=== PATIENT | female | born 1985 | race Caucasian/White ===

== ENCOUNTER 2024-05-19 13:38 | Outpatient (OUT) | payer OTHER, SELFPAY | END 2024-05-19 13:39 | disposition home or self-care (01) | PROVIDERS: PCP Family Medicine; Visit Provider Urology | DX: Z01.818 Encounter for other preprocedural examination (principal); N28.1 Cyst of kidney, acquired ==

== ENCOUNTER 2024-05-22 10:30 | Day surgery (SDC) | payer OTHER, SELFPAY ==
[2024-05-19 14:08] VITALS: BP 123/85; PULSE 77; TEMP 36.6; O2SAT 98; BMI 40.4
[2024-05-22] VITALS (11 sets, daily range): BP systolic 98–132; BP diastolic 60–86; PULSE 67–88; TEMP 36.2; O2SAT 92–97; BMI 40.6
[2024-05-22 10:54] LABS: HCG Qualitative NEGATIVE (NEGATIVE); Internal Control Within Normal Limits
[2024-05-22] MEDS: LACTATED RINGER'S SOLUTION 1,000 ML 50 ML IV (10:55)
[2024-05-22] MEDS: CEFAZOLIN SODIUM 2 GM/50 ML D5W PREMIX IV (11:07)
--- NOTE | 2024-05-22 11:43 | PM.URSON ---
Urology Surgery Operative Note Operative Note Procedure Date: 05/22/24 Time Out Performed: yes Pre-op Diagnosis: Right flank pain and right distal ureteral calculus Post-op Diagnosis: other (Right flank pain and severe right distal ureteral stenosis) Procedures performed: 1. Cystoscopy. 2. Right rigid ureteral dilation to 10 [place]. 3. Right ureteroscopy. 4. Placement of 6 [place] variable length right ureteral stent Anesthesia: General-LMA Primary Surgeon: López Harvey Complications: None Estimated blood loss (mL): 5 Findings: 1. Severe right distal ureteral stenosis with induration. 2. Passed ureteral calculus Specimens: None Drains: 6 [place] variable length right ureteral stent Indications for Procedures: This lady had a small distal right ureteral calculus with ipsilateral hydroureteronephrosis causing her flank pain. She has been straining her urine but has not passed a stone. Her pain has persisted. She did get follow-up KUBs and IVP's which were negative. Due to her persistent pain she now presents for endoscopic evaluation with possible stone manipulation versus stricture dilation and stent placement. She has signed an informed consent after risks were explained. Detailed description of Procedure: The patient was brought to the operating room and placed on the operating room table in the supine position. SCDs were placed on the lower extremities and turned on and functioning during the entire case. Timeout was done by all parties in the room. We all agreed upon the patient's identification and the planned procedures for this patient. Genn. anesthesia was then administered. The patient was then repositioned into the modified dorsal lithotomy position. All pressure points were satisfactorily padded. Genitalia were sterilely prepped and draped in usual fashion. I started by passing a 22 [place] Olympus cystoscope per urethra and into the bladder. Panendoscopy in the bladder revealed no evidence of any tumors, stones or lesions. I then passed a Glidewire through the scope and up the right ureter. There was an immediate E flux of cloudy debris. I then used an 8 [place] rigid ureteral dilator. As I passed this into the distal ureter I encountered significant resistance. Fluoroscopically there was no evidence of a stone in the area. I slowly steadily advanced the dilator and this turned out to be a significant stricture. I then similarly passed the 10 [place] dilator. This was also somewhat difficult. The ureter in this area was indurated. After removing the scope I then passed a semirigid ureteroscope adjacent to the wire and into the right ureter. The strictured area was now opened up. It was indurated and friable in this area. I was able to advance up beyond the 2 cm segment of strictured indurated ureter and get to normal ureter. There was inflammatory debris coming down towards the scope as I advanced up to her UPJ. No stone was seen. The scope was then removed. The cystoscope was backloaded over the wire and passed into the bladder and then a 6 [place] variable length ureteral stent was passed over the wire up to the right kidney. The wire was removed and there were good curls in the kidney and in the bladder. The bladder was drained of its contents and the scope was then removed. [facility] and [facility] to PACU in stable condition.
== END 2024-05-22 12:45 | disposition home or self-care (01) ==
PROVIDERS: PCP Family Medicine; Visit Provider Urology
PROC: (CPT 910; principal; 2024-05-22 11:40)
DX: Q62.10 Congenital occlusion of ureter, unspecified (principal); R10.9 Unspecified abdominal pain; Z87.442 Personal history of urinary calculi; Z90.49 Acquired absence of other specified parts of digestive tract; E66.01 Morbid (severe) obesity due to excess calories; Z68.41 Body mass index [BMI] 40.0-44.9, adult
CPT/HCPCS: 52332; 52344; 36415; 76000; 84703; J0690; J1100; J2405; J2704; J3010

== ENCOUNTER 2024-05-25 17:03 | Emergency (ER) | payer OTHER, SELFPAY ==
[2024-05-25 17:08] VITALS: BP 154/103; PULSE 88; TEMP 36.4; O2SAT 98; BMI 40.7
--- OUTSIDE RECORDS SUMMARY | 2024-05-25 17:11 | XMS_ITS | CCD ---
Demographics Address [address] [place] [address] Preferred Language en Marital Status Single Sabianist Affiliation Unknown Race White Ethnic Group Not or Lati no Author Organization [facility] Care Team Providers Care Landscape Laborer Name Role Phone Juana Benson Unavailable Amanda Garza Unavailable Stevo Saini Unavailable DO Juana Benson Primary Care Provider [phone] MD Jorden Ramos Attending Provider [phone] Esthela BUTTON MACHINE OPERATORTracy Unavailable Unallocated, Noms Provider Primary Care Provider Unallocated , Perlas Provider Primary Care Provi abbey Aroldo Andino DO Unavailable Juana Benson DO Attending Provider [phone] JUANA BENSON Primary Care Physician Giovanna Rhoades Unavailable Unavailable Julius Maria Attending Unavailable Julius Maria Attending Unavailable Tracy Lay NP Unavailable Unallocated , Perlas Provider Primary Care Provi abbey Juana Benson DO Primary Care Provider [phone] Juana Benson DO Primary Care Provider Juana Benson DO Attending Provider Juana Benson DO Primary Care Provider [phone] Juana Benson DO Attending Provider OMAIRA SAUCEDO Attending Unavailable TRACY LAY Attending Unavailab AROLDO Tee Attending Unavailable TRACY LAY Attending Unavailab joo NOYOLA JR., PHILIP Dickerson Attending Unavaila SHEREE Robertson Attending Unavailable JR. JAZMÍN, PHILIP Dickerson Attending Unavaila AROLDO Vivar Attending Unavailable ASHLEY LOCKETT Attending Unavailable Mike LUGO, Shanta Banegas Attending Provider SHANTA MCKEON Attending Unavailable SHANTA MCKEON Admitting Unavailable SHANTA MCKEON Attending Unavailable SHANTA MCKEON Referring Unavailable Fabiano Orellana Attending Unavailable SHANTA MCKEON Attending Unavailable BRITTNEY MCKEON Attending Unavailab Fabiano Card Attending Unavailable López BEAN Attending Unavailable Kuns, Juana Admitting Unavailable Kuns, Juana Primary Care Unavailable Kuns, Juana Attending Unavailable Kuns, Juana Admitting Unavailable Kuns, Juana Primary Care Unavailable Kuns, Juana Attending Unavailable Kuns, Juana Primary Care Unavailable Kuns, Juana Attending Unavailable Kuns, Juana Admitting Unavailable Kuns, Juana Primary Care Unavailable Shanta Mckeon Admitting Unavailable MikeShanta monreal Attending Unavailable Kuns, Juana Admitting Unavailable Kuns, Juana Attending Unavailable Kuns, Juana Admitting Unavailable Kuns, Juana Primary Care Unavailable Kuns, Juana Attending Unavailable Medications Current Medications Medication Drug Class(es) Dates Sig (Normalized) Sig (Original) acetaminophen 325 mg / HYDROcodone bitartrate 5 mg oral tablet (1 source) Opioid Agonist Start: 06-21-2017 Stanley 325 mg-5 mg oral tablet 1 tab(s), Oral, q4hr PC for pain, 40 tab(s), Refill(s) 0, [facility] Start Date: 06/21/17 Status: Ordered Atogepant (7 sources) Start: 03-04-2024 take 1 tablet by mouth once daily Atogepant (Qulipta) 60 mg tablet Active 60 MG PO Daily March 04, 2024 1:00am Start: 03-04-2024 take 1 tablet by olivier th once daily Atogepant (Qulipta) 60 mg tablet Active 60 MG PO Daily March 04, 2024 12:00am Atogepant (Qulipta) 60 MG tablet (15 sources) Start: 05-31-2023 End: 05-30-2024 take 1 tablet by mouth once daily Atogepant (Qulipta) 60 MG tablet Indications: Intractable migraine without aura and with status migrainosus (CMS/HCC) Take 60 mg by mouth Daily 30 tablet 11 05/31/2023 05/30/2024 Active atogepant 60 MG Oral Tablet [Qulipta] (4 sources) Start: 01-22-2024 take 1 tablet by mouth once daily at bedtime Qulipta 60 mg oral tablet = 1 tab(s), Oral, Once a day (at bedtime), Refills(s) 0 Start Date: 01/22/24 Status: Ordered Repeat number: 1 Start: 01-22-2024 take 1 tablet by olivier th once daily at bedtime Qulipta 60 mg oral tablet = 1 tab(s), Oral, Once a day (at bedtime), Refills(s) 0 Start Date: 01/22/24 Status: Ordered azithromycin 250 mg oral tablet (2 sources) Macrolide Antimicrobial Start: 05-12-2022 Zithromax Z-Inocente 250 MG as directed Orally May, Active brompheniramine maleate 0.4 mg/ml / dextromethorphan hydrobromide 2 mg/ml / pseudoephedrine hydrochloride 6 mg/ml oral solution (2 sources) alpha-Adrenergic Agonist, Uncompetitive N-dwfxix-E-aspartate Receptor Antagonist, Sigma-1 Agonist Start: 12-27-2023 End: 01-03-2024 take 5-10 mL by mouth four times daily as needed for cough brompheniramine-p seudoephedrine-DM 30-2-10 MG/5ML syrup Indications: Viral upper respiratory infection Take 5-10 mL by mouth 4 (four) times a day as needed for congestion or cough for up to 7 days 118 mL 12/27/2023 01/03/2024 Active ciprofloxacin 500 mg oral tablet (14 sources) Quinolone Antimicrobial Start: 12-26-2023 End: 03-04-2024 ciprofloxacin (Cipro) 500 MG tablet Twice daily 12/26/2023 Active dicyclomine hydrochloride 10 mg oral capsule (12 sources) Anticholinergic Start: 11-06-2022 take 1 capsule by mouth every eight hours Dicyclomine HCl 10 MG 1 CAPSULE Orally Three times a day for 30 days Nov, Active Start: 08-23-2018 End: 11-04-2018 take 1 tablet by mouth twice daily as needed for pain Dicyclomine 20 mg tablet Discontinued 20 MG PO Twice daily as needed for Pain August 23, 2018 12:00am November 04, 2018 4:46pm esomeprazole 40 mg delayed release oral capsule (3 sources) Proton Pump Inhibitor Start: 08-12-2021 take 1 capsule by mouth every twenty-four hours Esomeprazole Magnesium 40 MG 1 capsule Orally Once a day for 30 day(s) Aug, Active ketorolac tromethamine 10 mg oral tablet (4 sources) Nonsteroidal Anti-inflammatory Drug, Cyclooxygenase Inhibitor Start: 02-05-2024 take 1 tablet by mouth four times daily ketorolac 10 mg Tab 10 mg = 1 tab(s), Oral, QID Start Date: 02/05/24 Status: Ordered Repeat number: 1 Start: 01-22-2024 End: 01-27-2024 take 1 tablet by mouth every six hours as needed ketorolac 10 mg Tab 10 mg = 1 tab(s), Oral, q6hr, PRN for pain, not to exceed 40 mg/day and 5 days duration for all dose forms, X 5 day(s), # 20 tab(s), Refills(s) 0, Pharmacy: [facility], 160, cm, 01/22/24 11:28:00 EST, Height/Length Dosing, 105.7, kg, 01/22/24 11:28:00 EST, Weight Dosing Start Date: 01/22/24 Stop Date: 01/27/24 Status: Ordered methylPREDNISolone 4 mg oral tablet (20 sources) Corticosteroid Start: 04-03-2024 Methylpredniso lone (Medrol (Inocente)) 4 mg tablets,dose pack Active 4 MG PO As Directed April 03, 2024 1:00am Start: 09-29-2022 End: 09-29-2022 Methylprednisolone 4 mg tabl ets,dose pack Discontinued MG September 29, 2022 12:00am September 29, 2022 8:26am Start: 09-29-2022 End: 09-29-2022 Methylprednisolone 4 mg tabl ets,dose pack Discontinued MG September 28, 2022 11:00pm September 29, 2022 7:26am Start: 09-29-2022 End: 09-29-2022 Methylprednisolone Discontin ued MG September 29, 2022 12:00am September 29, 2022 8:26am Start: 05-12-2022 Medrol 4 MG as directed Orally May, Active Start: 09-07-2021 Medrol 4 MG as directed Orally for 6 days Sep, Active Start: 02-01-2021 methylPREDNISo lone 4 MG as directed Orally Jan, Not-Taking naproxen 500 mg oral tablet (1 source) Nonsteroidal Anti-inflammatory Drug Start: 04-27-2024 End: 05-04-2024 take 1 tablet by mouth twice daily Naprosyn 500 mg Tab 500 mg = 1 tab(s), Oral, BID, X 7 day(s), # 14 tab(s), Refills(s) 0, Pharmacy: [facility], 162, cm, 04/27/24 11:29:00 EDT, Height/Length Dosing, 104.7, kg, 04/27/24 11:29:00 EDT, Weight Dosing Start Date: 04/27/24 Stop Date: 05/04/24 Status: Ordered Quantity: 14.0 Unit: tab(s) Repeat number: 1 OXcarbazepine 600 mg oral tablet (20 sources) Anti-epileptic Agent Start: 06-15-2017 End: 04-07-2024 take 1 tablet by mouth at bedtime OXcarbazepine (Trileptal) 600 MG tablet Indications: Intractable migraine without aura and with status migrainosus (CMS/HCC) , History of seizure disorder TAKE 1 TABLET BY MOUTH AT BEDTIME 90 tablet 3 04/07/2024 Active take 1 tablet by olivier th every twelve hours OXcarbazepine 600 MG 1 tablet Orally Twi ce a day Active oxyCODONE hydrochloride 5 mg oral capsule (1 source) Opioid Agonist Start: 04-27-2024 End: 04-30-2024 take 1 capsule by mouth every six hours as needed for pain oxyCODONE 5 mg Cap 5 mg = 1 cap(s), Oral, q6hr, PRN for pain, X 3 day(s), # 12 cap(s), Refills(s) 0, Pharmacy: [facility], 162, cm, 04/27/24 11:29:00 EDT, Height/Length Dosing, 104.7, kg, 04/27/24 11:29:00 EDT, Weight Dosing Start Date: 04/27/24 Stop Date: 04/30/24 Status: Ordered Quantity: 12.0 Unit: cap(s) Repeat number: 1 Indication: Calculus of kidney pramoxine hydrochloride 10 mg/ml rectal foam (1 source) Start: 01-14-2020 Proctofoam 1 % as directed Externally 1 application QID prn for rectal pain PRN Jan, Active sulfamethoxazole 800 mg / trimethoprim 160 mg oral tablet (1 source) Dihydrofolate Reductase Inhibitor Antibacterial, Sulfonamide Antimicrobial Start: 01-08-2024 End: 01-13-2024 take 1 tablet by mouth twice daily Bactrim D.S. 800 mg-160 mg Tab 1 tab(s), Oral, BID for 5 day(s), 10 tab(s), Refill(s) 0, [facility], 160, cm, 01/08/24 12:12:00 EST, Height/Length Dosing, 109, kg, 01/08/24 12:12:00 EST, Weight Dosing Start Date: 01/08/24 Stop Date: 01/13/24 Status: Ordered SUMAtriptan 100 mg oral tablet (20 sources) Serotonin-1b and Serotonin-1d Receptor Agonist Start: 03-19-2023 SUMAtriptan (Imitrex) 100 MG tablet Indications: Intractable migraine without aura and with status migrainosus (CMS/HCC) 1 tablet at least 2 hours between doses as needed max 2 per day and 2 per week Strength: 100 mg 9 tablet 3 03/19/2023 Active Start: 09-29-2022 take 1 tablet by olivier th once as needed Sumatriptan Succinate 100 mg tablet Active 100 MG PO Per protocol as needed for MIGRAINES September 29, 2022 12:00am take 1 tablet by olivier th every two hours as needed, then take 1 tablet by mouth twice daily as needed SUMAtriptan Succinate 100 MG 1 tablet at least 2 hours between doses as needed Orally Twice a day Active tamsulosin hydrochloride 0.4 mg oral capsule (4 sources) alpha-Adrenergic Brandie Start: 01-22-2024 take 1 capsule by mouth once daily Flomax 0.4 mg Cap 0.4 mg = 1 cap(s), Oral, Daily, # 30 cap(s), Refills(s) 0, Pharmacy: [facility], 160, cm, 01/22/24 11:28:00 EST, Height/Length Dosing, 105.7, kg, 01/22/24 11:28:00 EST, Weight Dosing Start Date: 01/22/24 Status: Ordered Quantity: 30.0 Unit: cap(s) Repeat number: 1 sprinkle 24 hr topiramate 200 mg extended release oral capsule (20 sources) Start: 03-04-2024 take 1 capsule by mouth once daily at bedtime Topiramate 200 mg capsule,sprinkle,E R 24hr Active 200 MG PO Daily at bedtime March 04, 2024 1:00am Start: 01-22-2024 take 1 tablet by olivier th once daily topiramate 200 mg oral capsule, extended release = 1 tab(s), Oral, Daily, Refills(s) 0 Start Date: 01/22/24 Status: Ordered Repeat number: 1 Start: 01-22-2024 take 1 tablet by olivier th once daily topiramate 200 mg oral capsule, extended release = 1 tab(s), Oral, Daily, Refills(s) 0 Start Date: 01/22/24 Status: Ordered Start: 06-18-2023 End: 06-17-2024 take 1 capsule by mouth every twenty-four hours at bedtime Topiramate ER (Trokendi XR) 200 MG capsule sustained-release 24 hr Indications: Intractable migraine without aura and with status migrainosus (CMS/HCC) , History of seizure disorder , Pseudotumor cerebri Take 1 capsule by mouth at bedtime 90 capsule 3 06/18/2023 06/17/2024 Active Start: 09-29-2022 End: 03-04-2024 take 1 capsule by mouth once daily at bedtime Topiramate (Trokendi Xr) 200 mg capsule,extended release 24hr Discontinued 200 MG PO Daily at bedtime September 29, 2022 12:00am March 04, 2024 3:18pm Start: 09-29-2022 End: 03-04-2024 take 1 capsule by mouth once daily at bedtime Topiramate (Trokendi Xr) 200 mg capsule,extended release 24hr Discontinued 200 MG PO Daily at bedtime September 28, 2022 11:00pm March 04, 2024 2:18pm Start: 09-29-2022 take 1 capsule by [facility] once daily at bedtime Topiramate (Trokendi Xr) 200 mg capsule,extended release 24hr Active 200 MG PO Daily at bedtime September 28, 2022 11:00pm Start: 09-29-2022 take 1 capsule by [facility] once daily at bedtime Topiramate (Trokendi Xr) 200 mg capsule,extended release 24hr Active 200 MG PO Daily at bedtime September 29, 2022 12:00am take 1 tablet by [facility] twice daily Topamax 100 MG tablet 1 tablet Orally two times daily for 30 days 0 Active take 1 capsule by [facility] every twenty-four hours at bedtime Topiramate ER (Trokendi XR) 50 MG capsule sustained-release 24 hr 1 capsule po hs x 1 wk then increase to 2 pills at bed in addition to 200 mg Orally at bedtime for 30 days 0 Active Trokendi XR 25 M G capsule sustained-release 24 hr 1 po hs x 1 wk then 2 po hs x 1 wk then 3 po x 1 wk then 4 po thereafter Orally at bedtime for 30 days 0 Active Trokendi XR 200 MG capsule sustained-release 24 hr 1 capsule. 0 Active take 1 capsule by [facility] every twenty-four hours Trokendi XR 200 MG 1 capsule Orally Once a day Active take 1 capsule by [facility] every twenty-four hours Topiramate ER 25 MG 1 capsule Orally Once a day Active ubrogepant 100 mg oral tablet (3 sources) Ubrogepant (Ubre lvy) 100 MG tablet 1 tablet may take second dose at least 2 hours after first dose as needed Orally max 200 mg per day for 30 days 0 Active Zofran ODT 4 mg Tab-Dis (1 source) Start: 04-27-2024 take 1 tablet by mouth every eight hours as needed for nausea Zofran ODT 4 mg Tab-Dis 4 mg = 1 tab(s), Oral, q8hr, PRN Nausea/Vomiting, # 12 tab(s), Refills(s) 0, Pharmacy: [facility], 162, cm, 04/27/24 11:29:00 EDT, Height/Length Dosing, 104.7, kg, 04/27/24 11:29:00 EDT, Weight Dosing Start Date: 04/27/24 Status: Ordered Quantity: 12.0 Unit: tab(s) Repeat number: 1 Completed/Discontinued Medications Medication Drug Class(es) Dates Sig (Normalized) Sig (Original) diclofenac potassium 50 mg oral tablet (11 sources) Nonsteroidal Anti-inflammatory Drug Start: 09-29-2022 End: 03-04-2024 take 1 tablet by mouth once as needed Diclofenac Potassium 50 mg tablet Discontinued 50 MG PO Per protocol as needed for MIGRAINES September 29, 2022 12:00am March 04, 2024 3:19pm Start: 03-04-2021 Pennsaid 2 % 2 pumps Externally Twice a day Feb, Active ibuprofen 800 mg oral tablet (6 sources) Nonsteroidal Anti-inflammatory Drug Start: 06-15-2017 take 1 tablet by mouth three times daily at mealtime as needed Ibuprofen 800 MG 1 tablet with food or milk as needed Orally Three times a day PRN Feb, Not-Taking omeprazole 20 mg delayed release oral tablet (10 sources) Proton Pump Inhibitor Start: 08-23-2018 End: 08-23-2018 take 1 tablet by mouth once daily Omeprazole Magnesium (Prilosec Otc) 20 mg Tablet,Delayed Release (Dr/Ec) Discontinued 20 MG PO Daily August 23, 2018 12:00am August 23, 2018 11:43am rimegepant 75 mg disintegrating oral tablet (5 sources) Nurtec 75 MG 1 tablet on the tongue and allow to dissolve Orally Not-Taking traMADol hydrochloride 50 mg oral tablet (10 sources) Opioid Agonist Start: 11-11-2018 End: 09-29-2022 take 0.5-1 tablets by mouth every six hours as needed for pain Tramadol (Ultram) 50 mg tablet Discontinued 50 MG PO Q6H as needed for pain 45 7 November 11, 2018 12:00am September 29, 2022 8:27am 1/2 - 1 tab po q 6 hours prn pain Problems Active Problems Problem Classification Problem Date Documented Da te Episodic/Chronic Abdominal pain (20 sources) Abdominal pain; Translations: [Unspecified abdominal pain] Onset: 2 Resolved: 2 Episodic Anal and rectal conditions (1 source) Rectal polyp Episodic Calculus of urinary tract (2 sources) Kidney stone; Translations: [Calculus of kidney] Onset: 5 Episodic Disorders of lipid metabolism (20 sources) Hyperlipidemia; Translations: [Hyperlipidemia, unspecified] Onset: 2 Resolved: 2 Chronic Epilepsy; convulsions (11 sources) Epilepsy; Translations: [Epilepsy, unspecified, not intractable, without status epilepticus] Chronic Epilepsy; convulsions (5 sources) Seizure 06-15-2017 Episodic Esophageal disorders (17 sources) Gastroesophageal reflux disease; Translations: [Gastro-esophageal reflux disease without esophagitis] Onset: 2 Resolved: 2 Chronic Gastrointestinal hemorrhage (20 sources) Hematochezia; Translations: [Melena] Episodic Headache; including migraine (20 sources) Migraine; Translations: [Migraine, unspecified, not intractable, without status migrainosus] Onset: 3 03-20-2023 Chronic Hemorrhoids (1 source) Unspecified hemorrhoids Episodic Immunizations and screening for infectious disease (2 sources) Contact with or exposure to other viral diseases; Translations: [Close exposure to COVID-19 virus] 12-27-2023 Episodic Joint disorders and dislocations; trauma-related (18 sources) Derangement of right knee; Translations: [Unspecified internal derangement of right knee] Onset: 8 09-19-2022 Chronic Menstrual disorders (20 sources) Menorrhagia; Translations: [Excessive and frequent menstruation with regular cycle] Onset: 0 09-19-2022 Chronic Nonmalignant breast conditions (20 sources) Breast lump; Translations: [Unspecified lump in the right breast, unspecified quadrant] Onset: 5 03-04-2024 Episodic Other and unspecified benign neoplasm (11 sources) History of polyp of colon; Translations: [Personal history of colonic polyps] Episodic Other diseases of kidney and ureters (3 sources) Hydronephrosis; Translations: [Unspecified hydronephrosis] Onset: 5 Episodic Other diseases of kidney and ureters (2 sources) Unspecified hydronephrosis; Translations: [Hydronephrosis] 04-29-2024 Episodic Other gastrointestinal disorders (9 sources) Irritable bowel syndrome with diarrhea; Translations: [Irritable bowel syndrome with diarrhea] 03-04-2024 Chronic Other gastrointestinal disorders (1 source) Irritable bowel syndrome with diarrhea Chronic Other gastrointestinal disorders (1 source) Diarrhea, unspecified Episodic Other nervous system disorders (18 sources) Benign intracranial hypertension; Translations: [Benign intracranial hypertension] Onset: 3 07-12-2022 Chronic Other nutritional; endocrine; and metabolic disorders (20 sources) Body mass index 40+ - severely obese; Translations: [Body mass index (BMI) 40.0-44.9, adult] Chronic Other nutritional; endocrine; and metabolic disorders (1 source) Body mass index (BMI) 40.0-44.9, adult Onset: 2 Resolved: 2 Chronic Other screening for suspected conditions (not mental disorders or infectious disease) (5 sources) History of adenomatous polyp of colon; Translations: [Encounter for screening for malignant neoplasm of colon] 08-23-2018 Episodic Other skin disorders (2 sources) Hirsutism; Translations: [Hirsutism] 05-10-2024 Episodic Residual codes; unclassified (11 sources) Symptom of neck; Translations: [Other general symptoms and signs] Episodic Spondylosis; intervertebral disc disorders; other back problems (20 sources) Thoracolumbar radiculopathy; Translations: [Radiculopathy, thoracolumbar region] Onset: 5 03-04-2024 Episodic Superficial injury; contusion (10 sources) Contusion of finger; Translations: [Contusion of unspecified finger without damage to nail, initial encounter] 10-25-2020 Episodic Urinary tract infections (1 source) Urinary tract infectious disease; Translations: [Urinary tract infection, site not specified] Onset: 4 Episodic Past or Other Problems Problem Classification Problem Date Documented Date Episodic/Chronic Biliary tract disease (20 sources) Calculus of gallbladder without cholecystitis without obstruction; Translations: [Gallstone] Onset: 10-22-2018 09-19-2022 Episodic Genitourinary symptoms and ill-defined conditions (3 sources) Dysuria; Translations: [Dysuria] Onset: 12-26-2023 12-26-2023 Episodic Joint disorders and dislocations; trauma-related (20 sources) Tear of lateral meniscus of knee; Translations: [Other tear of lateral meniscus, current injury, right knee, initial encounter] Onset: 05-30-2017 09-19-2022 Episodic Comment on above: right knee Other connective tissue disease (1 source) Pain in right arm Onset: 04-01-2021 Resolved: 04-01-2021 Episodic Other connective tissue disease (1 source) Radial styloid tenosynovitis [de Quervain] Onset: 04-01-2021 Resolved: 04-01-2021 Episodic Other connective tissue disease (1 source) Lateral epicondylitis, right elbow Onset: 09-07-2021 Resolved: 09-07-2021 Episodic Other connective tissue disease (1 source) Synovitis and tenosynovitis, unspecified Onset: 09-07-2021 Resolved: 09-07-2021 Episodic Other nervous system disorders (20 sources) H/O: epilepsy; Translations: [Personal history of other diseases of the nervous system and sense organs] Onset: 07-12-2022 03-20-2023 Episodic Other non-traumatic joint disorders (2 sources) Pain in right wrist Onset: 03-04-2021 Resolved: 09-07-2021 Episodic Other non-traumatic joint disorders (1 source) Pain in right elbow Onset: 09-07-2021 Resolved: 09-07-2021 Episodic Other nutritional; endocrine; and metabolic disorders (1 source) Abnormal weight loss Onset: 08-12-2021 Resolved: 08-12-2021 Episodic Other upper respiratory infections (20 sources) Acute pharyngitis; Translations: [Acute pharyngitis, unspecified] Onset: 04-24-2018 09-19-2022 Episodic Sprains and strains (20 sources) Sprain of anterior cruciate ligament of right knee, initial encounter; Translations: [Sprain of cruciate ligament of knee] Onset: 05-30-2017 09-19-2022 Episodic Results Test Name Value Interpretation Reference Range Facility Ambulatory Visit Summaryon 0 05-09-2024 Ambulatory Visit Summary Ambulatory Visit Summary IQRA NGUYEN :1985 Visit Date:01/10/2024 Ambulatory Visit Instructions Your Diagnosis Kidney stones Your Care Team Primary Care Physician - JUANA BENSON DO This Is Your Medications List atogepant (Qulipta 60 mg oral tablet) oxcarbazepine (Trileptal 600 mg Tab) topiramate (topiramate 200 mg oral capsule, extended release) Procedures Performed Arthroscopy of knee (06/21/2017), eye surgery after poked with pencil. What to do next You Need to Complete the Following Creatinine, Blood, Routine collect, 02/05/24, Order for future visit, Lab Collect, Flank pain, Print Label By Order Location XR Abdomen 1 View, 05/02/24, Routine, Order for future visit, Transport Mode: Ambulatory, Reason: Kidney stone, No, Kidney stones, [id number]_[facility] Medications What How Much When Instructions Unchanged atogepant (Qulipta 60 mg oral tablet) 1 Tablets By Mouth Once a day (at bedtime) Unchanged oxcarbazepine (Trileptal 600 mg Tab) 1 Tablets By Mouth At bedtime Unchanged topiramate (topiramate 200 mg oral capsule, extended release) 1 Tablets By Mouth Every day Allergies No Known Allergies Problems Ongoing - Any problem that you are currently receiving treatment for. Kidney stones Patient Survey You may receive a survey via text or e-mail asking about your office visit. Please share your experience with us by completing your survey. We appreciate your feedback and thank you for choosing us for your care. [place] Provider Letteron 05-09-2024 Provider Letter Provider Letter May 09, 2024 IQRA NGUYEN [address] [place] [address] : 1985 To Whom It May Concern, Please excuse above patient from work. Pt was seen on 05/09/2024. Date of Illness::05/09/2024 Restrictions: There are no restrictions. Comments: If you have any questions please call the number below. Sincerely, [facility] [address] [address] ext.[phone] [facility] Office/Clinic Noteon 05-09-2024 Urology Office/Clinic Note Urology Office/Clinic Note Chief Complaint F/u to [facility] ED HPI Staff ER f/u and persistent sx. Presented to [facility] 04/27/24 due to R flank pain radiating to her R groin. CT AP w con - mild right-sided hydroureteronephrosis secondary to a tiny calculus in distal right ureter. Pt was given pain meds and Zofran. States she is still having pain on her right side off and on. Rare urgency with urination.Pt continues to have intermittent hematuria. Review of Systems PHQ Score Initial Depression Screen Score: 0 SCORE No fever, chills, malaise, myalgia. No rash/lesions. No chest pain, palpitations, or SOB. No diarrhea, constipation, nausea, vomiting. No change in urgency/frequency, straining, stream changes. No discharge, odor. Physical Exam Vitals & Measurements T: 37 ???C(Temporal Artery) HR: 79(Peripheral) RR: 16 BP: 133/78 HT: 64 in HT: 162 cm WT: 229.942 lb WT: 104.3 kg BMI: 39.74 General: nontoxic, NAD Mouth: moist mucosa Lungs: normal respiratory effort Cardio: regular rate, good distal perfusion Abdomen: nondistended, no suprapubic distention or tenderness, no CVA tenderness Neurologic: Grossly normal Skin: No rashes or suspicious lesion Assessment/Plan 1. Right flank pain (R10.9: Unspecified abdominal pain) 01/22/24: Saw PCP late Dec d/t burning w urination for several days. Told she had a UTI. Treated w Cipro x 10d. Burning went away. However a few days later she noticed R flank pain. Constant dull ache, 8/10. Not worse w movement. Went to [facility] ED 01/07 - CT negative for stone or hydro, nl white count, nl GFR, UA +leuks/+hgb. Treated w Bactim x 5d. Urine cx came back negative. Pain has not improved since ER visit. Does not change with full bladder or urination. No hx stones. No hx UTIs. The one in Dec was her first. Happened after recently becoming sexually active. Independent review of CT from 01/07 shows 2x2mm calcification R pelvis (115 axial, 39 coronal). Phlebolith vs distal ureteral stone? GPC reviewed and thinks more likely phlebolith. Will try empiric MET in case it is a distal stone causing the pain. 02/05/24: Pain has not improved. Not really worsening either, but it does radiate to RLQ/RUQ abdomen now (it didn't previously). Pain is daily, intermittent, waxes & wanes in severity. Pt does not have a gallbladder. Does still have an appendix. No gross hematuria. No LUTS. UA looks normal. -Will check IVP. IVP 02/08/24 negative. 04/27/24: [facility] ER due to worsening R flank pain. CT AP w con - mild right-sided hydroureteronephrosis secondary to a tiny calculus in distal right ureter. Pt was given pain meds and Zofran. TODAY: KUB 05/07/24 no visible stones. States she is still having pain on her right side off and on. Right flank radiating to RLQ. Severe at times. Intermittent. Rare urgency with urination. Pt continues to have intermittent hematuria. UA today shows moderate hgb and trace leuks. Difficult to know if this the same calcification that was identified back in January vs something new vs ureteral stricture? Will discuss case with PRW. Likely next step would be ureteroscopy. Pt is starting a new job on 05/26/24 and doesn't want to have to miss work after starting. Orders: tamsulosin, 0.4 mg = 1 cap(s), Oral, Daily, # 30 cap(s), Refills(s) 0, Pharmacy: [facility], 160, cm, 01/22/24 11:28:00 EST, Height/Length Dosing, 105.7, kg, 01/22/24 11:28:00 EST, Weight Dosing Urnls Dip Stick Auto w/o Microscopy POC [id number] Follow-up With When Contact Information [facility] [place] [address] Business (1) Additional Instructions: our personnel scheduler will be contacting you for follow-up Patient Education Flank Pain, Adult Abdominal Pain, Adult Problem List/Past Medical History Ongoing Right flank pain Historical No qualifying data Procedure/Surgical History Arthroscopy of knee (06/21/2017), eye surgery after poked with pencil. Medications Qulipta 60 mg oral tablet, 1 tab(s), Oral, Once a day (at bedtime) topiramate 200 mg oral capsule, extended release, 1 tab(s), Oral, Daily Trileptal 600 mg Tab, 600 mg= 1 tab(s), Oral, Bedtime Allergies No Known Allergies Social History Alcohol - Denies Alcohol Use, 06/15/2017 Never., 01/21/2024 Substance Abuse - Denies Substance Abuse, 06/15/2017 Never., 01/21/2024 Tobacco - Denies Tobacco Use, 06/15/2017 Never (less than 100 in lifetime) Tobacco Use:. Never Smokeless Tobacco Use:. Household tobacco concerns: No., 05/09/2024 Immunizations Vaccine Date Status SARS-CoV-2 (COVID-19) mRNA BNT-162b2 vax 07/06/2020 Recorded SARS-CoV-2 (COVID-19) mRNA BNT-162b2 vax 06/11/2020 Recorded influenza virus vaccine, inactivated 12/06/2017 Recorded influenza virus vaccine, inactivated 11/28/2016 Recorded influenza virus vaccine, inactivated 11/17/2015 Recorded diphtheria/pertussis, acel/tetanus adult 11/14/2011 Recorded measles/mumps/rubella virus (more content not included)... Normal [facility] Comment on above: Result Comment: Elec tronically Signed By: MIKE LUGO, SHANTA Banegas\.br\Date and Time Signed: 05/09/24 15:22 EDT X-ray reportOrdered By: Thad Welch on 05-07-2024 Study report [facility] [place] [address] XRay Report Signed Patient: Iqra Nguyen MR#: [id number] : 1985 Acct:[id number] Age/Sex: 38 / F ADM Date: 5 Loc: ICXD Room: Type: [facility] Attending Dr: Shanta Mckeon PA-C Copies to: Shanta Mckeon PA-C~ Ordering Provider: Shanta Mckeon PA-C Date of Service: 05/07/24 XR/XR KUB: N20.0 Single view of abdomen COMPARISON: None HISTORY: Right flank pain. Assess kidney stones THORAX: Lung bases unremarkable. FREE AIR: Supine position limits assessment BOWEL: No gaseous intestinal distention. STOOL: No significant stool RENAL STONES: No significant stones present. VASCULAR CALCIFICATIONS: Unremarkable SOFT TISSUE: Unremarkable BONES: Unremarkable POSTSURGICAL CHANGES: None XR/XR KUB IMPRESSION: No visible stones Impression dictated by: Tigre Welch M.D.05/07/2024 7:59 PM Dictation Location: RADIO-PC-20 Transcribed By: GUIDO 05/07/241958 Dictated By: Tigre Welch DO 05/07/241957 Signed By: 05/07/241958 [facility] XR KUBon 05-07-2024 XR KUB [facility] [place] [address] [place] [address] XRay Report Signed Patient: Iqra Nguyen MR#: [id number] : 1985 Acct:[id number] Age/Sex: 38 / F ADM Date: 05/07/24 Loc: [facility] Room: Type: [facility] Attending Dr: Shanta Mckeon PA-C Copies to: Shanta Mckeon PA-C Ordering Provider: Shanta Mckeon PA-C Date of Service: 05/07/24 XR/XR KUB: N20.0 Single view of abdomen COMPARISON: None HISTORY: Right flank pain. Assess kidney stones THORAX: Lung bases unremarkable. FREE AIR: Supine position limits assessment BOWEL: No gaseous intestinal distention. STOOL: No significant stool RENAL STONES: No significant stones present. VASCULAR CALCIFICATIONS: Unremarkable SOFT TISSUE: Unremarkable BONES: Unremarkable POSTSURGICAL CHANGES: None XR/XR KUB IMPRESSION: No visible stones Impression dictated by: Tigre Welch M.D.05/07/2024 7:59 PM Dictation Location: RADIO-PC-20 Transcribed By: GUIDO 05/07/241958 Dictated By: Tigre Welch DO 05/07/241957 Signed By: 05/07/241958 Normal [facility] B hCG Qual[place] 04-27-2024 Beta HCG ( test) Ql Negative Normal [facility] Comment on above: Performed By: #### 2 [id number] #### [facility] [address] [place] [address] BMPon 04-27-2024 Anion gap [Moles/Vol] 10 mmol/L Normal 6-16 [facility] Comment on above: Performed By: #### 2 [id number] #### [facility] [address] [place] [address] Calcium [Mass/Vol] 9.0 mg/dL Normal 8.9-11.1 [facility] Comment on above: Performed By: #### 2 [id number] #### [facility] [address] [place] [address] Chloride [Moles/Vol] 108 mmol/L Normal 101-111 [facility] Comment on above: Performed By: #### 2 [id number] #### [facility] [address] [place] [address] CO2 [Moles/Vol] 23 mmol/L Normal 21-31 [facility] Comment on above: Performed By: #### 2 [id number] #### [facility] [address] [place] [address] Creatinine [Mass/Vol] 0.8 mg/dL Normal 0.5-1.3 [facility] Comment on above: Performed By: #### 2 [id number] #### [facility] [address] [place] [address] Glucose [Mass/Vol] 105 mg/dL Normal 55-199 [facility] Comment on above: Performed By: #### 2 [id number] #### [facility] [address] [place] [address] Potassium [Moles/Vol] 3.8 mmol/L Normal 3.5-5.3 [facility] Comment on above: Performed By: #### 2 [id number] #### [facility] [address] [place] [address] Sodium [Moles/Vol] 137 mmol/L Normal 135-145 [facility] Comment on above: Performed By: #### 2 [id number] #### [facility] [address] [place] [address] Urea nitrogen [Mass/Vol] 15 mg/dL Normal 5-21 [facility] Comment on above: Performed By: #### 2 [id number] #### [facility] [address] [place] [address] Urea nitrogen/Creatinine [Mass ratio] 19 No Units Normal 10-20 [facility] Comment on above: Performed By: #### 2 [id number] #### [facility] [address] [place] [address] CBC w/ Auto Diffon 5 Basophils/100 WBC (Bld) 0.2 % Normal 0.0-2.0 [facility] Comment on above: Performed By: #### 2 [id number] #### [facility] [address] [place] [address] Basophils/Leukocytes Auto (Bld) [Pure # fraction] 0.0 E9/L Normal 0.0-0.2 [facility] Comment on above: Performed By: #### 2 [id number] #### [facility] [address] [place] [address] Eosinophils (Bld) [#/Vol] 0.1 E9/L Normal 0.0-0.5 [facility] Comment on above: Performed By: #### 2 [id number] #### [facility] [address] [place] [address] Eosinophils/100 WBC (Bld) 0.7 % Normal 0.0-8.0 [facility] Comment on above: Performed By: #### 2 [id number] #### [facility] [address] [place] [address] Erythrocyte distribution width (RBC) [Ratio] 14.4 % High 10.9-14.2 [facility] Comment on above: Performed By: #### 2 783041 #### [facility] [address] [place] [address] Hematocrit (Bld) [Volume fraction] 39.7 % Normal 34.0-46.0 [facility] Comment on above: Performed By: #### 2 653500 #### [facility] [address] [place] [address] Hemoglobin (Bld) [Mass/Vol] 13.4 g/dL Normal 12.0-16.0 [facility] Comment on above: Performed By: #### 2 [id number] #### [facility] [address] [place] [address] Lymphocytes (Bld) [#/Vol] 3.1 E9/L Normal 1.0-4.0 [facility] Comment on above: Performed By: #### 2 431056 #### [facility] [address] [place] [address] Lymphocytes/100 WBC (Bld) 28.5 % Normal 14.0-50.0 [facility] Comment on above: Performed By: #### 2 187245 #### [facility] [address] [place] [address] MCH (RBC) [Entitic mass] 31.7 pg Normal 27.0-34.0 [facility] Comment on above: Performed By: #### 2 [id number] #### [facility] [address] [place] [address] MCHC (RBC) [Mass/Vol] 33.9 g/dL Normal 31.4-36.0 [facility] Comment on above: Performed By: #### 2 [id number] #### [facility] [address] [place] [address] MCV (RBC) [Entitic vol] 93.6 fL Normal 80.0-100.[address] [facility] Comment on above: Performed By: #### 2 [id number] #### [facility] [address] [place] [address] Monocytes (Bld) [#/Vol] 0.6 E9/L Normal 0.2-1.[address] [facility] Comment on above: Performed By: #### 2 664054 #### [facility] [address] [place] [address] Neutrophils (Bld) [#/Vol] 7.1 E9/L Normal 2.0-7.5 [facility] Comment on above: Performed By: #### 2 639101 #### [facility] [address] [place] [address] Neutrophils/100 WBC (Bld) 65.2 % Normal 36.0-75.0 [facility] Comment on above: Performed By: #### 2 200783 #### [facility] [address] [place] [address] Platelet mean volume (Bld) [Entitic vol] 6.5 fL Normal 6.4-10.8 [facility] Comment on above: Performed By: #### 2 [id number] #### [facility] [address] [place] [address] Platelets (Bld) [#/Vol] 277.0 E9/L Normal 150.0-500.0 [facility] Comment on above: Performed By: #### 2 [id number] #### [facility] [address] [place] [address] RBC (Bld) [#/Vol] 4.2 E12/L Low 4.3-5.9 [facility] Comment on above: Performed By: #### 2 [id number] #### [facility] [address] [place] [address] WBC corrected for nucl RBC Auto (Bld) [#/Vol] 10.8 E9/L Normal 4.0-11.0 [facility] Comment on above: Performed By: #### 2 [id number] #### [facility] [address] [place] [address] CHEMISTRYOrdered By: SYSTEM SYSTEM on 04-27-2024 Albumin [Mass/Vol] 4.7 g/dL Normal 3.3 - 5.0 gm/dL Remisol Chem Albumin/Globulin [Mass ratio] 1.7 {ratio} Normal 1.1 - 2.2 [facility] ALP [Catalytic activity/Vol] 48 [iU]/d Normal 21 - 98 Int._Unit/L Remisol Chem ALT No additional P-5'-P [Catalytic activity/Vol] 8 [iU]/d Normal 6 - 46 Int._Unit/L [facility] Anion gap [Moles/Vol] 10 mmol/L Normal 6 - 16 mEq/L [facility] AST [Catalytic activity/Vol] 14 [iU]/d Normal 5 - 43 Int._Unit/L [facility] Bilirubin [Mass/Vol] 0.3 mg/dL Normal 0.0 - 1 .1 mg/dL [facility] Bilirubin.direct [Mass/Vol] 0.1 mg/dL Normal 0.0 - 0.4 mg/dL [facility] Bilirubin.indirect [Mass or moles/Vol] 0.2 mg/dL Normal 0.1 - 0.9 mg/dL [facility] Calcium [Mass/Vol] 9.0 mg/dL Normal 8.9 - 11. 1 mg/dL [facility] Chloride [Moles/Vol] 108 mmol/L Normal 101 - 1 11 mmol/L [facility] CO2 [Moles/Vol] 23 mmol/L Normal 21 - 31 mmol/L [facility] Creatinine [Mass/Vol] 0.8 mg/dL Normal 0.5 - 1.3 mg/dL [facility] eGFR 97 mL/min/1.73 m2 Normal >=59mL/min / 1.73 m2 [facility] Globulin (S) [Mass/Vol] 2.7 g/dL Normal 1.4 - 4.0 gm/dL [facility] Glucose [Mass/Vol] 105 mg/dL Normal 55 - 199 mg/dL [facility] Lipase [Catalytic activity/Vol] 19 U/L Normal 13 - 58 unit/L [facility] Potassium [Moles/Vol] 3.8 mmol/L Normal 3.5 - 5.3 mmol/L [facility] Protein [Mass/Vol] 7.4 g/dL Normal 6.0 - 7.8 gm/dL [facility] Sodium [Moles/Vol] 137 mmol/L Normal 135 - 145 mmol/L [facility] Urea nitrogen [Mass/Vol] 15 mg/dL Normal 5 - 21 mg/dL [facility] Urea nitrogen/Creatinine [Mass ratio] 19 mg/mg Normal 10 - [address] Abdomen/Pelvis w/ Contras ton 04-27-2024 CT Abdomen/Pelvis w/ Contrast Exam Date/Time: 04/27/2024 12:39 EDT Reason for Exam: ABDOMINAL PAIN, ACUTE, NONLOCALIZED;Other (please specify) Report IMPRESSION: MILD RIGHT-SIDED HYDROURETERONEPHROSIS SECONDARY TO A TINY CALCULUS WITHIN THE DISTAL RIGHT URETER. EXAM: CT Abdomen/Pelvis w/ Contrast History: Right flank pain. Left lower quadrant pain. Nausea and vomiting. Technique: Multiple contiguous axial images were obtained of the abdomen and pelvis from the level of the lung bases through the ischial tuberosities with contrast. Multiplanar reformats were obtained. Delayed images were obtained. Unless otherwise stated, incidental findings identified in this report do not require routine follow-up imaging. Comparison: CT abdomen pelvis 01/08/2024 Findings: Lung bases are clear. Postsurgical changes of cholecystectomy. The liver, gallbladder, spleen, stomach, pancreas, and adrenal glands are within normal limits. Slight decreased contrast enhancement of the right kidney when compared to the left. Mild right-sided hydroureteronephrosis secondary to a tiny calculus within the distal right ureter just proximal to the ureterovesicular junction. No left-sided urinary tract calculi or hydronephrosis. Urinary bladder is poorly distended but otherwise unremarkable. The uterus is present. Abdominal aorta is nonaneurysmal. No retroperitoneal or abdominal/pelvic lymphadenopathy. No small bowel obstruction. No overt colonic mass or pericolonic inflammation. Appendix is within normal limits. No free fluid or free air. No acute osseous abnormality. Degenerative changes at L5-S1. All CT scans at this facility use dose modulation, iterative reconstruction, and/or weight based dosing when appropriate to reduce radiation dose to as low as reasonably achievable. Report Technical Comments: GFR (mL/min/1/73m2) na Contrast: Isovue 300 Contrast amount in ml's: 100.00 Ordering Provider: Silvia Armando FINAL REPORT Dictated: 04/27/2024 12:56 pm Matt Awad DO Signed (Electronic Signature): 04/27/2024 12:56 pm Signed by: Matt Awad DO Transcribed by: SABRINA Technologist: LORENA Rodriguez [facility] ED Clinical Summaryon 2024 ED Clinical Summary ED Clinical Summary [address] [address] ED Clinical Summary Person Information [facility]: [facility] Age[facility] 38 Years : 1985 Sex: Female Language: Czech PCP: JUANA BENSON DO Marital Status: Single Phone: [phone] MRN: Visit Id: Visit Reason: Nausea; Flank pain; RT SIDE PAIN-VOMITING Speciality: Acuity: 3 Enc Type: Emergency Med Service: Emergency Arrival: 04/27/2024 11:20:50 Discharge: 04/27/2024 14:11:47 LOS: 000 02:51 Checkin: 04/27/2024 11:20:50 Checkout: 04/27/2024 14:11:47 Dispo Type: Home (Routine DC) EVENTS: Event Name Event Status Request Date/Time Start Date/Time Complete Date/Time Arrive Complete 04/27/2024 11:20:50 04/27/2024 11:20:50 04/27/2024 11:20:50 Document Home Meds Request 04/27/2024 11:20:50 Triage Complete 04/27/2024 11:20:50 04/27/2024 11:29:54 04/27/2024 11:29:54 Bed Assign Complete 04/27/2024 11:23:35 04/27/2024 11:23:35 04/27/2024 11:23:35 Dr Exam Complete 04/27/2024 11:23:35 04/27/2024 11:36:40 04/27/2024 11:36:40 RN Exam Complete 04/27/2024 11:23:35 04/27/2024 11:35:59 04/27/2024 11:35:59 Registration Complete 04/27/2024 11:31:32 04/27/2024 11:31:32 04/27/2024 11:31:32 Reg Complete Request 04/27/2024 11:31:32 Reg Bed Request Complete 04/27/2024 11:31:32 04/27/2024 11:31:32 04/27/2024 11:31:32 Registration Request 04/27/2024 11:36:40 Dr Exam Complete 04/27/2024 11:38:25 04/27/2024 11:38:25 04/27/2024 11:38:25 CT Complete 04/27/2024 11:47:30 04/27/2024 12:21:09 04/27/2024 12:39:09 Meds Admin Complete 04/27/2024 11:47:30 04/27/2024 12:33:53 Pending Labs Complete 04/27/2024 11:47:30 04/27/2024 13:42:20 Lab Complete 04/27/2024 11:47:30 04/27/2024 12:21:31 Pending Labs Complete 04/27/2024 11:56:34 04/27/2024 11:56:34 04/27/2024 12:21:31 Lab Complete 04/27/2024 11:56:34 04/27/2024 11:56:34 04/27/2024 12:21:31 Pending Labs Complete 04/27/2024 12:17:12 04/27/2024 12:17:12 04/27/2024 12:17:12 Discharge Complete 04/27/2024 13:55:38 04/27/2024 14:11:53 04/27/2024 14:11:53 Meds Admin Complete 04/27/2024 13:56:59 04/27/2024 14:02:23 Transfer Complete 04/27/2024 14:11:53 04/27/2024 14:11:53 04/27/2024 14:11:53 AD[address]: [address] [place] [id number] PHYS DOC NOTES: MEDICAL INFORMATION: Prescriptions Given: New Medications [facility], [address] [place], [place] [id number], [phone] naproxen (Naprosyn 500 mg Tab) 1 Tablets By Mouth 2 times a day for 7 Days. Refills: 0. ondansetron (Zofran ODT 4 mg Tab-Dis) 1 Tablets By Mouth every 8 hours as needed Nausea/Vomiting. Refills: 0. oxycodone (oxyCODONE 5 mg Cap) 1 Capsules By Mouth every 6 hours as needed for pain for 3 Days. Refills: 0. Medications to Continue with No Changes Other Medications atogepant (Qulipta 60 mg oral tablet) 1 Tablets By Mouth once a day (at bedtime). ketorolac (ketorolac 10 mg Tab) 1 Tablets By Mouth 4 times a day. oxcarbazepine (Trileptal 600 mg Tab) 1 Tablets By Mouth at bedtime. tamsulosin (Flomax 0.4 mg Cap) 1 Capsules By Mouth every day. Refills: 0. topiramate (topiramate 200 mg oral capsule, extended release) 1 Tablets By Mouth every day. PATIENT EDUCATION INFORMATION: Instructions: Kidney Stones Follow up: With: Address: When: Kayla Brooks In 3 days 04/30/2024 Comments: Follow-up with urology regarding kidney stone With: Address: When: JUANA JUANSara [address] [place], [place] [id number] [place] (1) In 3 days DIAGNOSIS: 1:Hydroureteronephrosis ; Kidney stone Normal [facility] ED Note-Physicianon 04-28-19 ED Note-Physician ED Note-Physician Basic Information Time Seen: Silvia Armando PA-C 04/27/2024 11:36 Chief Complaint pt c/o R flank pain and n/v. denies urinary symptoms History of Present Illness 38-year-old female presents to the ER with plaints of right flank pain. Patient reports she has been having intermittent right flank pain for the last few months. Has been seen by her PCP and urology as an outpatient, initially they thought that the pain was related to kidney stones but then she was told that the pain was not kidney stones. Patient states that within the last day the pain has become much more severe and unbearable. Patient cannot get comfortable. Pain is in the right flank and radiates down to the right groin region. No fevers or chills. Denies any urinary symptoms. History of cholecystectomy, no other abdominal surgeries. Review of Systems All organ systems are reviewed. Pertinent positive and negative findings as mentioned in the HPI. Physical Exam Vitals & Measurements T: 36.8 ???C(Oral) HR: 76(Monitored) RR: 18 BP: 124/77 SpO2: 99% HT: 162 cm WT: 104.7 kg BMI: 39.89 GENERAL APPEARANCE: Well developed, well nourished, alert and cooperative, patient appears uncomfortable in bed. HEAD: normocephalic, atraumatic EYES: PERRL, EOMI. Vision is grossly intact. EARS: External auditory canals clear, hearing grossly intact. NOSE: No nasal discharge. THROAT: Oral cavity and pharynx normal. Oral mucosa moist. CARDIAC: Normal heart sounds, no murmurs. Rhythm is regular. LUNGS: Clear to auscultation without rales, rhonchi, wheezing or diminished breath sounds. ABDOMEN: Soft, nondistended, nontender. No guarding or rebound. MUSCULOSKELETAL: Adequately aligned spine. ROM intact spine and extremities. BACK: Flank tenderness. NEUROLOGICAL: CN grossly intact. Strength and sensation symmetric and intact throughout. SKIN: Skin normal color, texture and turgor with no lesions or eruptions. Assessment/Plan 1. Hydroureteronephrosis (N13.30: Unspecified hydronephrosis) Kidney stone (N20.0: Calculus of kidney) Ordered: oxycodone, 5 mg = 1 cap(s), Oral, q6hr, PRN for pain, X 3 day(s), # 12 cap(s), Refills(s) 0, Pharmacy: [facility], 162, cm, 04/27/24 11:29:00 EDT, Height/Length Dosing, 104.7, kg, 04/27/24 11:29:00 EDT, Weight Dosing Orders: ketorolac, 30 mg = 1 mL, Injection, IV Push, Once, Stop date 04/27/24 11:47:00 EDT, STAT, Start date 04/27/24 11:47:00 EDT, 04/27/24 11:47:00 EDT morphine, 4 mg = 1 mL, Injection, IV Push, Once, Stop date 04/27/24 13:56:00 EDT, STAT, Start date 04/27/24 13:56:00 EDT, 04/27/24 13:56:00 EDT naproxen, 500 mg = 1 tab(s), Oral, BID, X 7 day(s), # 14 tab(s), Refills(s) 0, Pharmacy: [facility], 162, cm, 04/27/24 11:29:00 EDT, Height/Length Dosing, 104.7, kg, 04/27/24 11:29:00 EDT, Weight Dosing ondansetron, 4 mg = 1 tab(s), Oral, q8hr, PRN Nausea/Vomiting, # 12 tab(s), Refills(s) 0, Pharmacy: [facility] 1985, 162, cm, 04/27/24 11:29:00 EDT, Height/Length Dosing, 104.7, kg, 04/27/24 11:29:00 EDT, Weight Dosing ondansetron, 4 mg = 2 mL, Injection, IV Push, Once, Stop date 04/27/24 13:56:00 EDT, STAT, Start date 04/27/24 13:56:00 EDT, 04/27/24 13:56:00 EDT Basic Metabolic Panel Beta hCG Qual CBC w/ Auto Diff CT Abdomen/Pelvis w/ Contrast eGFR Extra Blue Tube Hepatic Function Panel Lipase Level UA with Cult Rflx 8-year-old female presented with right flank pain. In the ER patient is afebrile, vital signs are stable, appears to be in pain but nontoxic-appearing overall. Labs are reviewed and noted, no concerning findings, urinalysis without evidence of infection. CT scan consistent with right hydronephrosis with a tiny ureteral calculus. Patient's pain treated with Toradol and morphine in the ER with improvement. Patient educated on results and supportive care, discharged home with instructions to follow-up with urology and given short course of pain medication as well as Zofran. Patient to return to the ER with any new or worsening symptoms. Patient voices understanding and is agreeable to plan Medications Administered Given ketorolac 30 mg/mL Inj 1 mL, 30 mg, IV Push morphine 4 mg/mL Inj, 4 mg, IV Push Zofran 4 mg/2 mL Injection, 4 mg, IV Push Disposition Plan Patient Discharge Condition improved, Stable Discharge Disposition to home Discharge Prescription List Prescriptions Naprosyn 500 mg Tab, 500 mg= 1 tab(s), Oral, BID oxyCODONE 5 mg Cap, 5 mg= 1 cap(s), Oral, q6hr, PRN Zofran ODT 4 mg Tab-Dis, 4 mg= 1 tab(s), Oral, q8hr, PRN Follow-up With When Contact Information Kayla Brooks In 3 days 04/30/2024 EDT Additional Instructions: Follow-up with urology regarding kidney stone JUANA BENSON In [address] [place] [address]- Business (1) Additional Instructions: Patient Education Kidney Stones Attestation Patient was treated and evaluated by the Physician Market Director. The attending physician was in the Emergency De (more content not included)... Normal [facility] Comment on above: Result Comment: Elec tronically Signed By: Silvia Armando PA-C\.br\Date and Time Signed: 04/27/24 16:06 EDT\.br\Electronically Co-Signed By: Fabiano Orellana DO\.br\Date and Time Co-Signed: 04/27/24 16:12 EDT ED Patient Summaryon 025 ED Patient Summary ED Patient Summary [address] [address] Patient Discharge Instructions Person Information Name: IQRA NGUYEN Age: 38 Years Arrival Date: 04/27/2024 11:20:50 Discharge Diagnosis: 1:Hydroureteronephrosis ; Kidney stone Primary Care Physician: JUANA BENSON DO Provider Information Primary Provider: Fabiano Orellana DO Advanced Cornice Upholsterer:Silvia Armando PA-C The exam and treatment you received in the Emergency Department were for an urgent problem and are not intended as complete care. It is important that you follow up with a doctor, nurse practitioner, or physician???s claims assistant for ongoing care. If your symptoms become worse or you do not improve as expected and you are unable to reach your usual health care provider, you should return to the Emergency Department. We are available 24 hours a day. ADAM IQRA M has been given the following list of patient education materials, prescriptions and follow-up instructions: Follow-up Instructions: With: Address: When: Kayla Brooks In 3 days 04/30/2024 Comments: Follow-up with urology regarding kidney stone With: Address: When: JUANA JUANSara [address], [place] [id number] [place] (1) In 3 days In the event that this physician does not participate in your insurance network, please consult with your insurance company to find a nearby participating provider. Patient Education Materials: Kidney Stones A MESSAGE TO ALL PATIENTS REGARDING OPIOIDS PRESCRIPTION OPIOIDS: WHAT YOU NEED TO KNOW Prescription opioids can be used to help relieve zpjaozac-rn-niswed pain and are often prescribed following a surgery or injury, or for certain health conditions. These medications can be an important part of the treatment but also come with serious risks. It is important to work with your healthcare provider to make sure you are getting the safest, most effective care. WHAT ARE THE RISKS AND SIDE EFFECTS OF OPIOID USE? Prescription opioids carry serious risks of addiction and overdose, especially with prolonged use. An opioid overdose, often marked by slowed breathing, can cause sudden . The use of prescription opioids can have a number of side effects as well, even when taken as directed: ??? Tolerance???meaning you might need to take more of the medication for the same pain relief ??? Physical dependence???meaning you have symptoms of withdrawal when a medication is stopped ??? Increased sensitivity to pain ??? Constipation ??? Nausea, vomiting, and dry mouth ??? Sleepiness and dizziness ??? Confusion ??? Depression ??? Low levels of testosterone that can result in lower sex drive, energy, and strength ??? Itching and sweating RISKS ARE GREATER WITH: ??? History of drug misuse, substance use disorder, or overdose ??? Mental health conditions (such as depression or anxiety) ??? Sleep apnea ??? Older age (65 years and older) ??? Avoid alcohol while taking prescription opioids. Also, unless specifically advised by your health care provider, medications to avoid include: ??? Benzodiazepines (such as Xanax or Valium) ??? Muscle relaxants (such as Soma or Flexeril) ??? Hypnotics (such as Ambien or Lunesta) ??? Other prescription opioids KNOW YOUR OPTIONS Talk to your health care provider about ways to manage your pain that don???t involve prescription opioids. Some of these options may actually work better and have fewer risks and side effects. Options may include: ??? Pain relievers such as acetaminophen, ibuprofen, and naproxen ??? Some medication that are also used for depression or seizures ??? Physical therapy and exercise ??? Cognitive behavioral therapy, a psychological, goal-directed approach, in which patients learn how to modify physical, behavioral, and emotional triggers of pain and stress. IF YOU ARE PRESCRIBED OPIOIDS FOR PAIN: ??? Never take opioids in greater amounts or more often than prescribed. ??? Follow up with your primary health care provider. o Work together to create a plan on how to manage your pain. o Talk about ways to help manage your pain that don???t involve prescription opioids. o Talk about any and all concerns and side effects. ??? Help prevent misuse and abuse o Never sell or share prescription opioids. o Never use another person???s prescription opioids. ??? Store prescription opioids in a secure place and out of reach of others (this may include visitors, children, friends, and family). ??? Safely dispose of unused prescription opioids: Find your community drug take-back program or your pharmacy mail-back program, or flush them down the toilet, following guidance from the Food and Drug Administration (www.fda.gov/Drugs/Reso urcesForYou). ??? Visit www.cdc.gov/drugoverdos e to learn about the risks of opioids a (more content not included)... Normal [facility] Extra Blueon 04-27-2024 Tube Collected Plasma Yes Invalid Interpretation Code [facility] Comment on above: Performed By: #### 1 [id number] #### [facility] [address] [place] [address] HEMATOLOGYOrdered By: SYSTEM SYSTEM on 04-27-2024 Basophils/100 WBC (Bld) 0.2 % Normal 0.0 - 2.0 % Remisol Heme Basophils/Leukocytes Auto (Bld) [Pure # fraction] 0.0 E9/L Normal 0.0 - 0.2 E9/L Remisol Heme Eosinophils (Bld) [#/Vol] 0.1 E9/L Normal 0.0 - 0.5 E9/L Remisol Heme Eosinophils/100 WBC (Bld) 0.7 % Normal 0.0 - 8.0 % Remisol Heme Erythrocyte distribution width (RBC) [Ratio] 14.4 % High 10.9 - 14.2 % Remisol Heme Hematocrit (Bld) [Volume fraction] 39.7 % Normal 34.0 - 46.0 % Remisol Heme Hemoglobin (Bld) [Mass/Vol] 13.4 g/dL Normal 12.0 - 16.0 gm/dL Remisol Heme Lymphocytes (Bld) [#/Vol] 3.1 E9/L Normal 1.0 - 4.0 E9/L [facility] Heme Lymphocytes/100 WBC (Bld) 28.5 % Normal 14.0 - 50.0 % Remisol Heme MCH (RBC) [Entitic mass] 31.7 pg Normal 27.0 - 34.0 pg Remisol Heme MCHC (RBC) [Mass/Vol] 33.9 g/dL Normal 31.4 - 36.0 gm/dL Remisol Heme MCV (RBC) [Entitic vol] 93.6 fL Normal 80.0 - 100.0 fL Rem[facility] Heme Monocytes (Bld) [#/Vol] 0.6 E9/L Normal 0.2 - 1.0 E9/L [facility] Heme Monocytes/100 WBC (Bld) 5.4 % Normal 4.0 - 14.0 % Remisol Heme Neutrophils (Bld) [#/Vol] 7.1 E9/L Normal 2.0 - 7.5 E9/L [facility] Heme Neutrophils/100 WBC (Bld) 65.2 % Normal 36.0 - 75.0 % [facility] Heme Platelet mean volume (Bld) [Entitic vol] 6.5 fL Normal 6.4 - 10.8 fL [facility] Heme Platelets (Bld) [#/Vol] 277.0 E9/L Normal 150. 0 - 500.0 E9/L [facility] Heme RBC (Bld) [#/Vol] 4.2 E12/L Low 4.3 - 5.9 E12/L [facility] Heme WBC corrected for nucl RBC Auto (Bld) [#/Vol] 10.8 E9/L Normal 4.0 - 11.0 E9/L Remisol Heme Hep Func Panelon 04-27-2024 Albumin [Mass/Vol] 4.7 g/dL Normal 3.3-5.0 [facility] Comment on above: Performed By: #### 2 [id number] #### [facility] [address] [place] [address] Albumin/Globulin (S) [Mass conc ratio] 1.7 Normal 1.1-2.2 [facility] Comment on above: Performed By: #### 2 [id number] #### [facility] [address] [place] [address] ALP [Catalytic activity/Vol] 48 Int._Unit/L Normal 21-98 [facility] Comment on above: Performed By: #### 2 [id number] #### [facility] [address] [place] [address] ALT No additional P-5'-P [Catalytic activity/Vol] 8 Int._Unit/L Normal 6-46 [facility] Comment on above: Performed By: #### 2 [id number] #### [facility] [address] [place] [address] AST [Catalytic activity/Vol] 14 Int._Unit/L Normal 5-43 [facility] Comment on above: Performed By: #### 2 [id number] #### [facility] [address] [place] [address] Bilirubin [Mass/Vol] 0.3 mg/dL Normal 0.0-1.1 [facility] Comment on above: Performed By: #### 2 [id number] #### [facility] [address] [place] [address] Bilirubin.direct [Mass/Vol] 0.1 mg/dL Normal 0.0-0.4 [facility] Comment on above: Performed By: #### 2 [id number] #### [facility] [address] [place] [address] Bilirubin.indirect [Mass or moles/Vol] 0.2 mg/dL Normal 0.1-0.9 [facility] Comment on above: Performed By: #### 2 [id number] #### [facility] [address] [place] [address] Globulin (S) [Mass/Vol] 2.7 g/dL Normal 1.4-4.0 [facility] Comment on above: Performed By: #### 2 [id number] #### [facility] [address] [place] [address] Protein [Mass/Vol] 7.4 g/dL Normal 6.0-7.8 [facility] Comment on above: Performed By: #### 2 [id number] #### [facility] [address] [place] [address] Lipase Levelon 04-27-2024 Lipase [Catalytic activity/Vol] 19 U/L Normal 13-58 [facility] Comment on above: Performed By: #### 2 [id number] #### [facility] [address] [place] [address] SEROLOGYOrdered By: Shanta Diaz on 04-27-2024 Beta HCG ( test) Ql Negative (04/27/24 11:32 AM) Normal [facility] Man Sero UA with Cult Rflxon 04-28-19 25 Bilirubin Ql (U) Negative Normal Negative [facility] Comment on above: Performed By: #### 4 [id number] #### [facility] [address] [place] [address] Clarity (U) Clear Normal Clear [facility] Comment on above: Performed By: #### 4 [id number] #### [facility] [address] [place] [address] Color (U) Colorless Abnormal Yellow [facility] Comment on above: Result Comment: Micr oscopic readings are only performed on those samples that meet specific criteria set forth by [facility]. Performed By: #### 4 [id number] #### [facility] [address] [place] [address] Epithelial cells.squamous Auto (Urine sed) [#/Area] 0-2 Invalid Interpretation Code [facility] Comment on above: Performed By: #### 4 [id number] #### [facility] [address] [place] [address] Glucose Ql (U) Negative Normal Negative [facility] Comment on above: Performed By: #### 4 [id number] #### [facility] [address] [place] [address] Hemoglobin Auto test strip (U) [Mass/Vol] 1+ Abnormal Negative [facility] Comment on above: Performed By: #### 4 [id number] #### [facility] [address] [place] [address] Ketones Auto test strip Ql (U) Negative Normal Negative [facility] Comment on above: Performed By: #### 4 [id number] #### [facility] [address] [place] [address] Leukocyte esterase Auto test strip Ql (U) Negative Normal Negative [facility] Comment on above: Performed By: #### 4 [id number] #### [facility] [address] [place] [address] Mucus Auto Ql (U) Negative Normal Negative [facility] Comment on above: Performed By: #### 4 [id number] #### [facility] [address] [place] [address] Nitrite Auto test strip Ql (U) Negative Normal Negative [facility] Comment on above: Performed By: #### 4 [id number] #### [facility] [address] [place] [address] pH (U) 5.5 [pH] Invalid Interpretation Code 5.0-9.0 [facility] Comment on above: Performed By: #### 4 [id number] #### [facility] [address] [place] [address] Protein Ql (U) Negative Normal Negative [facility] Comment on above: Performed By: #### 4 [id number] #### [facility] [address] [place] [address] RBC Ql (U) 0-3 Normal 0-3 [facility] Comment on above: Performed By: #### 4 [id number] #### [facility] [address] [place] [address] Specific gravity (U) [Rel density] >1.050 Normal 1.005-1.030 [facility] Comment on above: Performed By: #### 4 [id number] #### [facility] [address] [place] [address] Urobilinogen (U) [Mass/Vol] Negative Normal Negative [facility] Comment on above: Performed By: #### 4 [id number] #### [facility] [address] [place] [address] Type of Urine collection method Clean Catch Normal [facility] Comment on above: Performed By: #### 4 [id number] #### [facility] [address] [place] [address] URINALYSISOrdered By: Deepika Diaz on 04-27-2024 Bilirubin Ql (U) Negative Normal Negativemg/ dL [facility] UA Auto SS Clarity (U) Clear (04/27/24 1:30 PM) Normal Clear [facility] UA Auto SS Color (U) Colorless 1 *ABN* (04/27/24 1:30 PM) Invalid Interpretation Code Yellow [facility] UA Auto SS Comment on above: Interpretive Data: M icroscopic readings are only performed on those samples that meet specific criteria set forth by [facility]. Epithelial cells.squamous Auto (Urine sed) [#/Area] 0-2 graded/HPF Invalid Interpretation Code [facility] UA Auto SS Glucose Ql (U) Negative Normal Negativemg/ dL [facility] UA Auto SS Hemoglobin Auto test strip (U) [Mass/Vol] 1+ *ABN* (04/27/24 1:30 PM) Invalid Interpretation Code Negative [facility] UA Auto SS Ketones Auto test strip Ql (U) Negative Normal Negativemg/ dL [facility] UA Auto SS Leukocyte esterase Auto test strip Ql (U) Negative (04/27/24 1:30 PM) Normal Negative [facility] UA Auto SS Mucus Auto Ql (U) Negative (04/27/24 1:30 PM) Normal Negative [facility] UA Auto SS Nitrite Auto test strip Ql (U) Negative Normal Negativemg/ dL [facility] UA Auto SS pH (U) 5.5 *NA* (04/27/24 1:30 PM) Invalid Interpretation Code 5.0 - 9.0 [facility] UA Auto SS Protein Ql (U) Negative Normal Negativemg/ dL [facility] UA Auto SS RBC Ql (U) 0-3 graded/HPF Normal 0-3graded/H PF [facility] UA Auto SS Specific gravity (U) [Rel density] >1.050 (04/27/24 1:30 PM) Normal 1.005 - 1.030 [facility] UA Auto SS Urobilinogen (U) [Mass/Vol] Negative Normal Negativemg/ dL [facility] UA Auto SS URINALYSISOrdered By: Ella Armando on 04-27-2024 UA Spec Desc Clean Catch (04/27/24 1:30 PM) Normal [facility] UA Auto SS Work Phone: eGFRon 04-27-2024 eGFR 97 mL/min/1.73 m2 Normal >=59 [facility] Comment on above: Performed By: #### 1 [id number] #### [facility] [address] [place] [address] X-ray reportOrdered By: Jackson Ny on 04-08-2024 Study report [facility] [place] [address] XRay Report Signed Patient: Iqra Nguyen MR#: [id number] : 1985 Acct:[id number] Age/Sex: 38 / F ADM Date: 5 Loc: XD[facility]C Room: Type: [facility] Attending Dr: Juana Benson DO Copies to: Juana Benson DO~ Ordering Provider: Juana Benson DO Date of Service: 04/08/24 XR/XR lumbar spine min 4V*: M54.15 - Radiculopathy, thoracolumbar region LUMBAR SPINE - 6 views CLINICAL HISTORY: Radiculopathy of thoracolumbar region COMPARISON: None FINDINGS: Minimal levocurvature of the thoracolumbar junction. Ytng-bn-hcvgssmwoptb space narrowing and endplate osteophytosis at L5-S1. Minimal anterior marginal endplate spurring elsewhere. No fracture or malalignment. Sacroiliac joints are symmetric without significant spurring. XR/XR lumbar spine min 4V* IMPRESSION: [id number] DEGENERATIVE CHANGES LUMBOSACRAL JUNCTION. NO FRACTURE MALALIGNMENT. Impression dictated by: Osmin Ny M.D.04/08/2024 7:36 PM Dictation Location: RADIO-PC-26 Transcribed By: GUIDO 04/08/241935 Dictated By: Osmin Ny MD 04/08/241934 Signed By: 04/08/241935 [facility] Work Phone: XR lumbar spine min 4V*on XR lumbar spine min 4V* [facility] [address] [place] [address] [place] [address] XRay Report Signed Patient: Iqra Nguyen MR#: [id number] : 1985 Acct:[id number] Age/Sex: 38 / F ADM Date: 04/08/24 Loc: XDSHC Room: Type: [facility] Attending Dr: Juana Benson DO Copies to: Juana Benson DO Ordering Provider: Juana Benson DO Date of Service: 04/08/24 XR/XR lumbar spine min 4V*: M54.15 - Radiculopathy, thoracolumbar region LUMBAR SPINE - 6 views CLINICAL HISTORY: Radiculopathy of thoracolumbar region COMPARISON: None FINDINGS: Minimal levocurvature of the thoracolumbar junction. Aunf-aw-bzwuscac disc space narrowing and endplate osteophytosis at L5-S1. Minimal anterior marginal endplate spurring elsewhe re. No fracture or malalignment. Sacroiliac joints are symmetric without significant spurring. XR/XR lumbar spine min 4V* IMPRESSION: [id number] DEGENERATIVE CHANGES LUMBOSACRAL JUNCTION. NO FRACTURE MALALIGNMENT. Impression dictated by: Osmin Ny M.D.04/08/2024 7:36 PM Dictation Location: RADIO--26 Transcribed By: GUIDO 04/08/241935 Dictated By: Osmin Ny MD 04/08/241934 Signed By: 04/08/241935 Normal [facility] SAI Antinuclear Antibodieson 04-07-2024 Antinuclear Abs, IFA Negative Normal . [facility] Comment on above: Result Comment: Nega tive <1:80 Borderline 1:80 Positive >1:80 ICAP nomenclature: AC-0 For more information about Hep-2 cell patterns use ANApatterns.org, the official website for the International Consensus on Antinuclear Antibody (SAI) Patterns (ICAP). Performed at: - [facility] [address] [id number] Sales And Business Development Manager: Zain Oliver PhD, Phone: [phone] PERFORMED BY: [facility] [address] [place] [address] PATHOLOGIST WATCH REPAIR TECHNICIAN TONEY ATKINS M.D. Performed By: #### R A, SAI ####[facility] ,#### CRP, ESR, TSH3, URIC, LIPID, CMP wRFX A1C, CBC, B12 ####[facility] Alanine aminotransferase [En zymatic activity/volume] in Serum or PlasmaOrdered By: Juana Benson on 04-07-2024 ALT [Catalytic activity/Vol] Alanine aminotransferase [Enzymatic activity/volume] in Serum or Plasma 7-52 [facility] Albumin [Mass/volume] in Ser um or Plasma by Bromocresol green (BCG) dye binding methoOrdered By: Juana Benson on 04-07-2024 Albumin BCG dye [Mass/Vol] Albumin [Mass/volume] in Serum or Plasma by Bromocresol green (BCG) dye binding metho 3.5-5.7 [facility] Alkaline phosphatase [Enzyma tic activity/volume] in Serum or PlasmaOrdered By: Juana Benson on 04-07-2024 ALP [Catalytic activity/Vol] Alkaline phosphatase [Enzymatic activity/volume] in Serum or Plasma 34-104 [facility] Aspartate aminotransferase [ Enzymatic activity/volume] in Serum or PlasmaOrdered By: Juana Benson on 04-07-2024 AST [Catalytic activity/Vol] Aspartate aminotransferase [Enzymatic activity/volume] in Serum or Plasma Low 13-39 [facility] Basophils Auto (Bld) [#/Vol] Ordered By: Jauna Benson on 04-07-2024 Basophils (Bld) [#/Vol] Automated basoph il count 0.0-0.2 [facility] Basophils/100 WBC Auto (Bld) Ordered By: Juana Benson on 04-07-2024 Basophils/100 WBC (Bld) Automated basophil % . [facility] Bilirubin.total [Mass/volume ] in Serum or PlasmaOrdered By: Juana Benson on 04-07-2024 Bilirubin [Mass/Vol] Bilirubin.total [Mass/volume] in Serum or Plasma 0.3-1.0 [facility] C reactive protein [Mass/vol ume] in Serum or PlasmaOrdered By: Juana Benson on 04-07-2024 CRP [Mass/Vol] C reactive protein [Mass/volume] in Serum or Plasma High 0.0-0.5 [facility] C-Reactive Proteinon 025 C-Reactive Protein 0.7 mg/dL High 0.0-0.5 [facility] Comment on above: Performed By: #### R A, SAI #### [facility] , #### CRP, ESR, TSH3, URIC, LIPID, CMP wRFX A1C, CBC, B12 #### [facility] [address] [place] [address] CMP with reflex to A1Con Albumin [Mass/Vol] 4.4 g/dL Normal 3.5-5.7 [facility] Comment on above: Performed By: #### R A, SAI #### [facility] , #### CRP, ESR, TSH3, URIC, LIPID, CMP wRFX A1C, CBC, B12 #### [facility] [address] Albumin/Globulin [Mass ratio] 1.6 {ratio} Normal [facility] Comment on above: Performed By: #### R A, SAI #### [facility] , #### CRP, ESR, TSH3, URIC, LIPID, CMP wRFX A1C, CBC, B12 #### [facility] [address] ALP [Catalytic activity/Vol] 52 U/L Normal 34-104 [facility] Comment on above: Performed By: #### R A, ASI #### [facility] , #### CRP, ESR, TSH3, URIC, LIPID, CMP wRFX A1C, CBC, B12 #### [address] ALT [Catalytic activity/Vol] 8 U/L Normal 7-52 [facility] Comment on above: Performed By: #### R A, SAI #### [facility] , #### CRP, ESR, TSH3, URIC, LIPID, CMP wRFX A1C, CBC, B12 #### [address] Anion gap [Moles/Vol] 11.2 mmol/L Normal 6.0-15.0 [facility] Comment on above: Performed By: #### R A, SAI #### [facility] , #### CRP, ESR, TSH3, URIC, LIPID, CMP wRFX A1C, CBC, B12 #### [address] AST [Catalytic activity/Vol] 11 U/L Low 13-39 [facility] Comment on above: Performed By: #### R A, SAI #### [facility] , #### CRP, ESR, TSH3, URIC, LIPID, CMP wRFX A1C, CBC, B12 #### [address] Bilirubin [Mass/Vol] 0.3 mg/dL Normal 0.3-1.0 [facility] Comment on above: Performed By: #### R A, SAI #### [facility] , #### CRP, ESR, TSH3, URIC, LIPID, CMP wRFX A1C, CBC, B12 #### [address] Calcium [Mass/Vol] 8.7 mg/dL Normal 8.6-10.3 [facility] Comment on above: Performed By: #### R A, SAI #### [facility] , #### CRP, ESR, TSH3, URIC, LIPID, CMP wRFX A1C, CBC, B12 #### [address] Chloride [Moles/Vol] 109 mmol/L High 98-107 [facility] Comment on above: Performed By: #### R A, SAI #### [facility] , #### CRP, ESR, TSH3, URIC, LIPID, CMP wRFX A1C, CBC, B12 #### [address] CO2 [Moles/Vol] 22.8 mmol/L Normal 21.0-31.0 [facility] Comment on above: Performed By: #### R A, SAI #### [facility] , #### CRP, ESR, TSH3, URIC, LIPID, CMP wRFX A1C, CBC, B12 #### [address] Creatinine [Mass/Vol] 0.80 mg/dL Normal 0.60-1.20 [facility] Comment on above: Performed By: #### R A, SAI #### [facility] , #### CRP, ESR, TSH3, URIC, LIPID, CMP wRFX A1C, CBC, B12 #### [address] GFR/1.73 sq M.predicted MDRD (S/P/Bld) [Vol rate/Area] mL/min/{1.73_m2} Normal [facility] Comment on above: Performed By: #### R A, SAI #### [facility] , #### CRP, ESR, TSH3, URIC, LIPID, CMP wRFX A1C, CBC, B12 #### [address] Globulin (S) [Mass/Vol] 2.7 g/dL Normal T [facility] Comment on above: Performed By: #### R A, SAI #### [facility] , #### CRP, ESR, TSH3, URIC, LIPID, CMP wRFX A1C, CBC, B12 #### [address] Glucose [Mass/Vol] 99 mg/dL Normal 70-100 [facility] Comment on above: Performed By: #### R A, SAI #### [facility] , #### CRP, ESR, TSH3, URIC, LIPID, CMP wRFX A1C, CBC, B12 #### [address] Potassium [Moles/Vol] 4.0 mmol/L Normal 3.5-5.1 [facility] Comment on above: Performed By: #### R A, SAI #### [facility] , #### CRP, ESR, TSH3, URIC, LIPID, CMP wRFX A1C, CBC, B12 #### [address] Protein [Mass/Vol] 7.1 g/dL Normal 6.4-8.9 [facility] Comment on above: Performed By: #### R A, SAI #### [facility] , #### CRP, ESR, TSH3, URIC, LIPID, CMP wRFX A1C, CBC, B12 #### [address] Sodium [Moles/Vol] 139 mmol/L Normal 136-145 [facility] Comment on above: Performed By: #### R A, SAI #### [facility] , #### CRP, ESR, TSH3, URIC, LIPID, CMP wRFX A1C, CBC, B12 #### [address] Urea nitrogen [Mass/Vol] 19 mg/dL Normal 7-25 [facility] Comment on above: Performed By: #### R A, SAI #### [facility] , #### CRP, ESR, TSH3, URIC, LIPID, CMP wRFX A1C, CBC, B12 #### [facility] [address] Calcium [Mass/volume] in Ser um or PlasmaOrdered By: Juana Benson on 04-07-2024 Calcium [Mass/Vol] Calcium [Mass/volume ] in Serum or Plasma 8.6-10.3 [facility] Carbon dioxide, total [Moles /volume] in Serum or PlasmaOrdered By: Juana Benson on 04-07-2024 CO2 [Moles/Vol] Carbon dioxide, tota l [Moles/volume] in Serum or Plasma 21.0-31.0 [facility] Chloride [Moles/volume] in S susana or PlasmaOrdered By: Juana Benson on 04-07-2024 Chloride [Moles/Vol] Chloride [Moles/vol ume] in Serum or Plasma High 98-107 [facility] Cholesterol [Mass/volume] in Serum or PlasmaOrdered By: Juana Benson on 04-07-2024 Cholesterol [Mass/Vol] Cholesterol [Mass/volume] in Serum or Plasma 140-200 [facility] Comment on above: Chol less than 200 m g/dl low riskChol 201-239 mg/dl borderline riskChol 240 mg/dl and greater high risk Cholesterol in HDL [Mass/vol ume] in Serum or PlasmaOrdered By: Juana Benson on 04-07-2024 Cholesterol in HDL [Mass/Vol] Serum or plasma high density lipoprotein (HDL) cholesterol measurement 23-92 [facility] Comment on above: HDL CHOL ATP-III CLA SSIFICATION Cardiovascular RiskHDL > or equal to 60 mg/dL LOWHDL < 40 mg/dL HIGH Cholesterol in LDL Calc [Mas s/Vol]Ordered By: Juana Benson on 04-07-2024 Cholesterol in LDL [Mass/Vol] Cholesterol in LDL [Mass/volume] in Serum or Plasma by calculation High 0-100 [facility] Comment on above: LDL ATP III CLASSIFI CATIONLDL less than 100 mg/dL OptimalLDL 100-129 mg/dL Near or above optimalLDL 130-159 mg/dL Borderline highLDL 160-189 mg/dL HighLDL greater than 189 mg/dL Very high Cholesterol in VLDL Calc [Ma ss/Vol]Ordered By: Juana Benson on 04-07-2024 Cholesterol in VLDL [Mass/Vol] Cholesterol in VLDL [Mass/volume] in Serum or Plasma by calculation [facility] Complete Blood Count Auto Di ffon 04-07-2024 Basophils (Bld) [#/Vol] 0.1 10*3/uL Normal 0.0-0.2 [facility] Comment on above: Performed By: #### R A, SAI #### [facility] , #### CRP, ESR, TSH3, URIC, LIPID, CMP wRFX A1C, CBC, B12 #### [address] Basophils/100 WBC (Bld) 0.6 % Normal . T josé miguel [facility] Comment on above: Performed By: #### R A, SAI #### [facility] , #### CRP, ESR, TSH3, URIC, LIPID, CMP wRFX A1C, CBC, B12 #### [address] Eosinophils (Bld) [#/Vol] 0.1 10*3/uL Normal 0.0-0.45 [facility] Comment on above: Performed By: #### R A, SAI #### [facility] , #### CRP, ESR, TSH3, URIC, LIPID, CMP wRFX A1C, CBC, B12 #### [address] Eosinophils/100 WBC (Bld) 1.3 % Normal . [facility] Comment on above: Performed By: #### R A, SAI #### [facility] , #### CRP, ESR, TSH3, URIC, LIPID, CMP wRFX A1C, CBC, B12 #### [address] Erythrocyte distribution width (RBC) [Ratio] 13.9 % Normal 11.9-15.3 [facility] Comment on above: Performed By: #### R A, SAI #### [facility] , #### CRP, ESR, TSH3, URIC, LIPID, CMP wRFX A1C, CBC, B12 #### [address] Hematocrit (Bld) [Volume fraction] 37.8 % Normal 34.0-46.4 [facility] Comment on above: Performed By: #### R A, SAI #### [facility] , #### CRP, ESR, TSH3, URIC, LIPID, CMP wRFX A1C, CBC, B12 #### [address] Hemoglobin (Bld) [Mass/Vol] 12.9 g/dL Normal 11.8-15.4 [facility] Comment on above: Performed By: #### R A, SAI #### [facility] , #### CRP, ESR, TSH3, URIC, LIPID, CMP wRFX A1C, CBC, B12 #### [address] Lymphocytes (Bld) [#/Vol] 2.2 10*3/uL Normal 1.00-4.8 [facility] Comment on above: Performed By: #### R A, SAI #### [facility] , #### CRP, ESR, TSH3, URIC, LIPID, CMP wRFX A1C, CBC, B12 #### [address] Lymphocytes/100 WBC (Bld) 24.5 % Normal . [facility] Comment on above: Performed By: #### R A, SAI #### [facility] , #### CRP, ESR, TSH3, URIC, LIPID, CMP wRFX A1C, CBC, B12 #### [address] MCH (RBC) [Entitic mass] 31.7 pg Normal 24.7-34.3 [facility] Comment on above: Performed By: #### R A, SAI #### [facility] , #### CRP, ESR, TSH3, URIC, LIPID, CMP wRFX A1C, CBC, B12 #### [address] MCV (RBC) [Entitic vol] 92.8 fL Normal 80-100 [facility] Comment on above: Performed By: #### R A, SAI #### [facility] , #### CRP, ESR, TSH3, URIC, LIPID, CMP wRFX A1C, CBC, B12 #### [address] Mean Corpuscular HGB Conc 34.1 g/dL Normal 32.0-35.0 [facility] Comment on above: Performed By: #### R A, SAI #### [facility] , #### CRP, ESR, TSH3, URIC, LIPID, CMP wRFX A1C, CBC, B12 #### [address] Monocytes (Bld) [#/Vol] 0.5 10*3/uL Normal 0.0-0.8 [facility] Comment on above: Performed By: #### R A, SAI #### [facility] , #### CRP, ESR, TSH3, URIC, LIPID, CMP wRFX A1C, CBC, B12 #### [address] Monocytes/100 WBC (Bld) 5.5 % Normal . [facility] Comment on above: Performed By: #### R A, SAI #### [facility] , #### CRP, ESR, TSH3, URIC, LIPID, CMP wRFX A1C, CBC, B12 #### [address] Neutrophils (Bld) [#/Vol] 6.0 10*3/uL Normal 1.8-7.7 [facility] Comment on above: Performed By: #### R A, SAI #### [facility] , #### CRP, ESR, TSH3, URIC, LIPID, CMP wRFX A1C, CBC, B12 #### [address] Neutrophils/100 WBC (Bld) 68.1 % Normal . [facility] Comment on above: Performed By: #### R A, SAI #### [facility] , #### CRP, ESR, TSH3, URIC, LIPID, CMP wRFX A1C, CBC, B12 #### [address] NRBC% 0.1 /100{WBC} Normal 0-0.5 [facility] Comment on above: Performed By: #### R A, SAI #### [facility] , #### CRP, ESR, TSH3, URIC, LIPID, CMP wRFX A1C, CBC, B12 #### [address] Platelet mean volume (Bld) [Entitic vol] 6.8 fL Normal 6.3-10.7 [facility] Comment on above: Performed By: #### R A, SAI #### [facility] , #### CRP, ESR, TSH3, URIC, LIPID, CMP wRFX A1C, CBC, B12 #### [address] Platelets (Bld) [#/Vol] 267 10*3/uL Normal 150-450 [facility] Comment on above: Performed By: #### R A, SAI #### [facility] , #### CRP, ESR, TSH3, URIC, LIPID, CMP wRFX A1C, CBC, B12 #### [address] RBC (Bld) [#/Vol] 4.08 10*6/uL Normal 3.60-5.00 [facility] Comment on above: Performed By: #### R A, SAI #### [facility] , #### CRP, ESR, TSH3, URIC, LIPID, CMP wRFX A1C, CBC, B12 #### [facility] [address] [place] [address] WBC (Bld) [#/Vol] 8.8 10*3/uL Normal 3.8-11.6 [facility] Comment on above: Performed By: #### R A, SAI #### [facility] , #### CRP, ESR, TSH3, URIC, LIPID, CMP wRFX A1C, CBC, B12 #### [address] Creatinine [Mass/volume] in Serum or PlasmaOrdered By: Juana Benson on 04-07-2024 Creatinine [Mass/Vol] Creatinine [Mass/volume] in Serum or Plasma 0.60-1.20 [facility] Eosinophils Auto (Bld) [#/Vo l]Ordered By: Juana Benson on 04-07-2024 Eosinophils (Bld) [#/Vol] Automated eosinophil count 0.0-0.45 [facility] Eosinophils/100 WBC Auto (Bl d)Ordered By: Juana Benson on 04-07-2024 Eosinophils/100 WBC (Bld) Automated eosinophil % . [facility] Erythrocyte Sedimentation Ra garrick 04-07-2024 ESR (Bld) [Velocity] 22 mm/h High 0-19 [facility] Comment on above: Result Comment: PERF ORMED BY: [place] [address] PATHOLOGIST WATCH REPAIR TECHNICIAN TONEY ATKINS M.D. Performed By: #### R A, SAI #### [facility] , #### CRP, ESR, TSH3, URIC, LIPID, CMP wRFX A1C, CBC, B12 #### [address] Erythrocyte distribution wid th Auto (RBC) [Ratio]Ordered By: Juana Benson on 04-07-2024 Erythrocyte distribution width (RBC) [Ratio] Erythrocyte distribution width [Ratio] by Automated count 11.9-15.3 [facility] Erythrocyte sedimentation ra te by Photometric methodOrdered By: Juana Benson on 04-07-2024 ESR Photometric method (Bld) [Velocity] Erythrocyte sedimentation rate by Photometric method High 0-19 [facility] Globulin Calc (S) [Mass/Vol] Ordered By: Juana Benson on 04-07-2024 Globulin (S) [Mass/Vol] Serum globulin measurement by calculation (mass/volume) [facility] Glucose [Mass/volume] in Ser um or PlasmaOrdered By: Juana Benson on 04-07-2024 Glucose [Mass/Vol] Glucose [Mass/volume ] in Serum or Plasma 70-100 [facility] Hematocrit Auto (Bld) [Volum e fraction]Ordered By: Juana Benson on 04-07-2024 Hematocrit (Bld) [Volume fraction] Hematocrit [Volume Fraction] of Blood by Automated count 34.0-46.4 [facility] Hemoglobin [Mass/volume] in BloodOrdered By: Juana Benson on 04-07-2024 Hemoglobin (Bld) [Mass/Vol] Hemoglobin [Mass/volume] in Blood 11.8-15.4 [facility] Leukocytes [#/volume] correc douglas for nucleated erythrocytes in Blood by Automated counOrdered By: Juana Benson on 04-07-2024 WBC corrected for nucl RBC Auto (Bld) [#/Vol] Leukocytes [#/volume] corrected for nucleated erythrocytes in Blood by Automated coun 3.8-11.6 [facility] Lipid Panelon 04-07-2024 Cholesterol [Mass/Vol] 183 mg/dL Normal 140-200 [facility] Comment on above: Result Comment: Chol less than 200 mg/dl low risk Chol 201-239 mg/dl borderline risk Chol 240 mg/dl and greater high risk Performed By: #### R A, SAI #### [facility] , #### CRP, ESR, TSH3, URIC, LIPID, CMP wRFX A1C, CBC, B12 #### [facility] [address] Cholesterol in HDL [Mass/Vol] 38 mg/dL Normal 23-92 [facility] Comment on above: Result Comment: HDL CHOL ATP-III CLASSIFICATION Cardiovascular Risk HDL > or equal to 60 mg/dL LOW HDL < 40 mg/dL HIGH Performed By: #### R A, SAI #### [facility] , #### CRP, ESR, TSH3, URIC, LIPID, CMP wRFX A1C, CBC, B12 #### [facility] [address] Cholesterol.total/Jazlyn sterol in HDL [Mass ratio] 4.8 {ratio} Normal <5.0 [facility] Comment on above: Performed By: #### R A, SAI #### [facility] , #### CRP, ESR, TSH3, URIC, LIPID, CMP wRFX A1C, CBC, B12 #### [facility] [address] LDL Cholesterol,Calculated 104 mg/dL High 0-100 [facility] Comment on above: Result Comment: LDL ATP III CLASSIFICATION LDL less than 100 mg/dL Optimal LDL 100-129 mg/dL Near or above optimal LDL 130-159 mg/dL Borderline high LDL 160-189 mg/dL High LDL greater than 189 mg/dL Very high Performed By: #### R A, SAI #### [facility] , #### CRP, ESR, TSH3, URIC, LIPID, CMP wRFX A1C, CBC, B12 #### [facility] [address] [place] [id number] [facility] Triglyceride w/Reflex 207 mg/dL High 0-149 [facility] Comment on above: Result Comment: TRIG ATP III CLASSIFICATION TRIG less than 150 mg/dL Normal TRIG 150-199 mg/dL Borderline high TRIG 200-500 mg/dL High TRIG greater than 500 mg/dL Very high Standard traceable to the Center for Disease Conrtrol and Prevention (CDC) test method. Performed By: #### R A, SAI #### [facility] , #### CRP, ESR, TSH3, URIC, LIPID, CMP wRFX A1C, CBC, B12 #### [facility] [address] VLDL CHOLESTEROL 41 mg/dL Normal [facility] Comment on above: Performed By: #### R A, SAI #### [facility] , #### CRP, ESR, TSH3, URIC, LIPID, CMP wRFX A1C, CBC, B12 #### [facility] [address] Lymphocytes Auto (Bld) [#/Vo l]Ordered By: Juana Benson on 04-07-2024 Lymphocytes (Bld) [#/Vol] Lymphocytes [#/volume] in Blood by Automated count 1.00-4.8 [facility] Lymphocytes/100 WBC Auto (Bl d)Ordered By: Juana Benson on 04-07-2024 Lymphocytes/100 WBC (Bld) Lymphocytes/100 leukocytes in Blood by Automated count . [facility] MCH Auto (RBC) [Entitic mass ]Ordered By: Juana Benson on 04-07-2024 MCH (RBC) [Entitic mass] MCH [Entitic mass] by Automated count 24.7-34.3 [facility] MCHC Auto (RBC) [Mass/Vol]Or dered By: Juana Benson on 04-07-2024 MCHC (RBC) [Mass/Vol] MCHC [Mass/volume] by Automated count 32.0-35.0 [facility] MCV Auto (RBC) [Entitic vol] Ordered By: Juana Benson on 04-07-2024 MCV (RBC) [Entitic vol] MCV [Entitic vol ume] by Automated count 80-100 [facility] Monocytes Auto (Bld) [#/Vol] Ordered By: Juana Benson on 04-07-2024 Monocytes (Bld) [#/Vol] Automated blood monocyte count 0.0-0.8 [facility] Monocytes/100 WBC Auto (Bld) Ordered By: Juana Benson on 04-07-2024 Monocytes/100 WBC (Bld) Automated monocyte % . [facility] Neutrophils Auto (Bld) [#/Vo l]Ordered By: Juana Benson on 04-07-2024 Neutrophils (Bld) [#/Vol] Neutrophils [#/volume] in Blood by Automated count 1.8-7.7 [facility] Neutrophils/100 WBC Auto (Bl d)Ordered By: Juana Benson on 04-07-2024 Neutrophils/100 WBC (Bld) Automated neutrophil % . [facility] No Panel InformationOrdered By: Juana Benson on 04-07-2024 Estimated GFR (CKD-EPI) > 60.0 mL/Min [facility] Creatinine Clearance (Chem N/A [facility] Nucleated erythrocytes [Pres ence] in Blood by Automated countOrdered By: Juana Benson on 04-07-2024 Nucleated RBC Auto Ql (Bld) Nucleated erythrocytes [Presence] in Blood by Automated count 0-0.5 [facility] Platelet mean volume Auto (B ld) [Entitic vol]Ordered By: Juana Benson on 04-07-2024 Platelet mean volume (Bld) [Entitic vol] Platelet mean volume [Entitic volume] in Blood by Automated count 6.3-10.7 [facility] Platelets Auto (Bld) [#/Vol] Ordered By: Juana Benson on 04-07-2024 Platelets (Bld) [#/Vol] Platelets [#/vol ume] in Blood by Automated count 150-450 [facility] Potassium [Moles/volume] in Serum or PlasmaOrdered By: Juana Benson on 04-07-2024 Potassium [Moles/Vol] Potassium [Moles/volume] in Serum or Plasma 3.5-5.1 [facility] Protein [Mass/volume] in Ser um or PlasmaOrdered By: Juana Benson on 04-07-2024 Protein [Mass/Vol] Protein [Mass/volume ] in Serum or Plasma 6.4-8.9 [facility] RBC Auto (Bld) [#/Vol]Ordere d By: Juana Benson on 04-07-2024 RBC (Bld) [#/Vol] Erythrocytes [#/volu me] in Blood by Automated count 3.60-5.00 [facility] Rheumatoid Factoron 04-08-19 25 Rheumatoid Factor <10.0 Normal <14.0 [facility] Comment on above: Result Comment: Perf ormed at: - [facility] [address] [id number] Sales And Business Development Manager: Zain Oliver PhD, Phone: [phone] Performed By: #### R A, SAI ####[facility] ,#### CRP, ESR, TSH3, URIC, LIPID, CMP wRFX A1C, CBC, B12 ####[facility] [id number] Serum nuclear antibody titer Ordered By: Juana Benson on 04-07-2024 Nuclear Ab (S) [Titer] Serum nuclear ant ibody titer . [facility] Comment on above: Negative <1:80 Borde rline 1:80 Positive >1:80ICAP nomenclature: AC-0For more information about Hep-2 cell patterns useANApatterns.org, the official website for theInternational Consensus on Antinuclear Antibody (SAI)Patterns (ICAP).Performed at: [facility] [address] [id number] Director: Zain Oliver PhD, Phone: [phone] Serum or plasma albumin/glob ulin mass ratioOrdered By: Juana Benson on 04-07-2024 Albumin/Globulin [Mass ratio] Serum or plasma albumin/globulin mass ratio [facility] Serum or plasma anion gap de terminationOrdered By: Juana Benson on 04-07-2024 Anion gap [Moles/Vol] Serum or plasma an ion gap determination 6.0-15.0 [facility] Serum or plasma rheumatoid f actor measurement (units/volume)Ordered By: Juana Benson on 04-07-2024 Rheumatoid factor Qn Serum or plasma rheumatoid factor measurement (units/volume) <14.0 [facility] Comment on above: Performed at: [employer] [facility] [address] [id number] Director: Zain Oliver PhD, Phone: [phone] Serum or plasma total choles terol/high density lipoprotein (HDL) cholesterol mass ratOrdered By: Juana Benson on 04-07-2024 Cholesterol.total/Jazlyn sterol in HDL [Mass ratio] Serum or plasma total cholesterol/high density lipoprotein (HDL) cholesterol mass rat <5.0 [facility] Sodium [Moles/volume] in Ser um or PlasmaOrdered By: Juana Benson on 04-07-2024 Sodium [Moles/Vol] Sodium [Moles/volume ] in Serum or Plasma 136-145 [facility] Thyroid Stimulating Hormoneo n 04-07-2024 TSH Qn 0.82 m[IU]/L Normal 0.45-5.33 [facility] Comment on above: Result Comment: PERF ORMED BY: [facility] [address] [place] [address] PATHOLOGIST WATCH REPAIR TECHNICIAN TONEY ATKINS M.D. Performed By: #### R A, SAI ####[facility] ,#### CRP, ESR, TSH3, URIC, LIPID, CMP wRFX A1C, CBC, B12 ####[facility] [id number] [place] [id number] [facility] Thyrotropin [Units/volume] i n Serum or PlasmaOrdered By: Juana Benson on 04-07-2024 TSH Qn Thyrotropin [Units/volume] in Serum or Plasma 0.45-5.33 [facility] Triglyceride [Mass/volume] i n Serum or PlasmaOrdered By: Juana Benson on 04-07-2024 Triglyceride [Mass/Vol] Triglyceride [Mass/volume] in Serum or Plasma High 0-149 [facility] Comment on above: TRIG ATP III CLASSIF ICATIONTRIG less than 150 mg/dL NormalTRIG 150-199 mg/dL Borderline highTRIG 200-500 mg/dL High TRIG greater than 500 mg/dL Very highStandard traceable to the Center for Disease Conrtrol and Prevention (CDC) test method. Urate [Mass/volume] in Serum or PlasmaOrdered By: Juana Benson on 04-07-2024 Urate [Mass/Vol] Urate [Mass/volume] in Serum or Plasma 2.3-6.6 [facility] Urea nitrogen [Mass/volume] in Serum or PlasmaOrdered By: Juana Benson on 04-07-2024 Urea nitrogen [Mass/Vol] Urea nitrogen [Mass/volume] in Serum or Plasma 7-25 [facility] Uric Acidon 04-07-2024 Urate [Mass/Vol] 5.7 mg/dL Normal 2.3-6.6 [facility] Comment on above: Performed By: #### R A, SAI #### [facility] , #### CRP, ESR, TSH3, URIC, LIPID, CMP wRFX A1C, CBC, B12 #### [facility] [address] Vitamin B12on 04-07-2024 Cobalamin (Vitamin B12) [Mass/Vol] 236 pg/mL Normal 180-914 [facility] Comment on above: Performed By: #### R A, SAI ####[facility] ,#### CRP, ESR, TSH3, URIC, LIPID, CMP wRFX A1C, CBC, B12 ####[facility] [id number] Vitamin B12 ser/plasOrdered By: Juana Benson on 04-07-2024 Cobalamin (Vitamin B12) [Mass/Vol] Vitamin B12 ser/plas 180-914 [facility] WBC Auto (Bld) [#/Vol]Ordere d By: Juana Benson on 04-07-2024 WBC (Bld) [#/Vol] Leukocytes [#/volume ] in Blood by Automated count 3.8-11.6 [facility] MM diagnostic mammo BI w/CAD on 03-21-2024 MM diagnostic mammo BI w/CAD [facility] [address] [place] [address] [place] [address] Ultrasound Report Signed Patient: Iqra Nguyen MR#: [id number] : 1985 Acct:[id number] Age/Sex: 38 / F ADM Date: 03/21/24 Loc: [place] Room: Type: [facility] Attending Dr: Juana Benson DO Ordering Provider: Juana Benson DO Date of Service: 03/21/24 MM/MM diagnostic mammo BI w/CAD: N63.10 - Unspecified lump in the right breast, unspecifie... ([id number]) US/US breast RT limited: N63.12 - Unspecified lump in the right breast, upper inne... Copies to: Juana Benson DO REVISED DOCUMENT - CORRECTION TO RESULT CODE BILATERAL Diagnostic Full Field digital mammogram with 3-D imaging. Full field digital CC and MLO imaging performed. CAD utilized. COMPARISON: Right breast lump HISTORY: Annual screening BREAST COMPOSITION: Scattered fibroglandular densities of the breast parenchyma identified BREAST CALCIFICATIONS: Benign calcifications present. VASCULAR CALCIFICATIONS: None ARCHITECTURAL DISTORTION: None BREAST NODULE: 17 mm nodular density in the anterior medial portion of the right breast. AXILLARY LYMPH NODES: Normal POSTSURGICAL CHANGES: None Targeted right breast ultrasound region of the lobe. At the 2:00 position 4 cm from the nipple there is a solid and cystic nodule measuring 1.7 x 0.5 x 1.4 cm. This is probably benign. May represent fat necrosis. US/US breast RT limited IMPRESSION: Probably benign solid and cystic lesion of the right breast. Consider short-term follow- up assessment with targeted right breast ultrasound. RESULT CODE: 3 Probably Benign Finding Short Term Follow-Up DENSITY CODE: 2 (approximately 25-50% glandular) FOLLOW UP: 6M THE FALSE-NEGATIVE RATE OF MAMMOGRAPHY IS APPROXIMATELY 10%. IMAGING OF A PALPABLE ABNORMALITY MUST BE BASED ON CLINICAL GROUNDS. PATIENT WAS ENTERED INTO A REMINDER SYSTEM WITH A TARGET DUE DATE FOR THE NEXT MAMMOGRAM. Impression dictated by: Tigre Welch M.D.03/21/2024 12:39 PM Dictation Location: [facility] Tech: Nanda Turcios Transcribed By: GUIDO 03/21/24 1239 Dictated By: Tigre Welch DO 03/21/24 1123 Signed By: 03/21/24 1239 Normal [facility] XR IVPon 02-08-2024 XR IVP Exam Date/Time: 02/08/2024 08:17 EST Reason for Exam: R10.9;Flank pain Report IMPRESSION: Unremarkable intravenous pyelogram. EXAMINATION: XR IVP HISTORY: Flank pain, R10.9. COMPARISON: CT 01/08/2024. CONTRAST: Isovue 300 intravenous injection of 50 mL RESULT: Evaluation of the manager test radiograph demonstrates no abnormal calcifications in the expected locations of the kidneys, ureters or bladder. No bowel dilation. No acute osseous findings. After the administration of intravenous contrast, multiple post contrast images were obtained. The bilateral nephrograms are symmetric without evidence of mass or delay. The right and left pyelograms are normal without significant dilatation, mass effect or filling defect. The right ureter is visualized in near entirety. No filling defects or dilatation is present. The left ureter is visualized in near entirety. No filling defects or dilatation is present. The urinary bladder is partially decompressed, otherwise unremarkable. No bladder filling defects. The postvoid film demonstrates essentially complete emptying. Ordering Provider: , FINAL REPORT Dictated: 02/08/2024 9:20 am Edison Hernandez MD Signed (Electronic Signature): 02/08/2024 9:20 am Signed by: Edison Hernandez MD Transcribed by: SABRINA Technologist: JAKE Technical Comments Contrast: Isovue 300 Contrast amount in ml's: 50 Normal Martínez [facility] Ambulatory Visit Summaryon 1 Ambulatory Visit Summary Ambulatory Visit Summary IQRA NGUYEN :1985 Visit Date:02/05/2024 Ambulatory Visit Instructions Your Diagnosis Flank pain Your Care Team Attending Physician - SHANTA MCKEON PA-C Primary Care Physician - JUANA BENSON DO This Is Your Medications List atogepant (Qulipta 60 mg oral tablet) ketorolac (ketorolac 10 mg Tab) oxcarbazepine (Trileptal 600 mg Tab) tamsulosin (Flomax 0.4 mg Cap) topiramate (topiramate 200 mg oral capsule, extended release) Procedures Performed Arthroscopy of knee (06/21/2017), eye surgery after poked with pencil. Discharge Vitals Temperature (Oral) 37 ???C Heart Rate (Peripheral) 73 Blood Pressure 126/91 Height 64 in Height 162 cm Weight 229.942 lb Weight 104.3 kg BMI 39.74 What to do next Scheduled Follow-Up Appointments Sunday 8:00 AM EST Where: [facility] You Need to Complete the Following Creatinine, Blood, Routine collect, 02/05/24, Order for future visit, Lab Collect, Flank pain, Print Label By Order Location XR IVP, *Est. 02/08/24 due within 10 day(s), Routine, Order for future visit, Transport Mode: Ambulatory, Reason: Flank pain, Reason: R10.9, No, Flank pain, pp_set_radiology_subspe cialty, Not Required, [facility] Medications What How Much When Instructions Unchanged atogepant (Qulipta 60 mg oral tablet) 1 Tablets By Mouth Once a day (at bedtime) Unchanged ketorolac (ketorolac 10 mg Tab) 1 Tablets By Mouth 4 times a day Unchanged oxcarbazepine (Trileptal 600 mg Tab) 1 Tablets By Mouth At bedtime Unchanged tamsulosin (Flomax 0.4 mg Cap) 1 Capsules By Mouth Every day Unchanged topiramate (topiramate 200 mg oral capsule, extended release) 1 Tablets By Mouth Every day Allergies No Known Allergies Patient Survey You may receive a survey via text or e-mail asking about your office visit. Please share your experience with us by completing your survey. We appreciate your feedback and thank you for choosing us for your care. Normal [facility] Urology Office/Clinic Noteon 02-05-2024 Urology Office/Clinic Note Urology Office/Clinic Note Chief Complaint RT flank pain HPI Staff 38yr old pt here for 2wk f/u right flank pain. Started Flomax and Toradol at last OV. still taking but states she feels like it's not working. Previous Dx: flank pain Dysuria: denies Incomplete bladder emptying: denies Hematuria: denies visual blood Frequency: 5-6x day Urgency: denies Nocturia: 1-2 x Stream: good stream Leaking: denies Post void dripping: denies Wearing pads/ Depends: denies Urge incontinence: denies Stress incontinence: denies Incontinence without Sensory Awareness: denies Abdominal pain: denies Flank pain: right sided flank pain radiating anteriorly Sexual complaints: denies Review of Systems PHQ Score Initial Depression Screen Score: 1 SCORE no fever, chills, malaise, myalgia. no rash/lesions. no chest pain, palpitations, or SOB. no nausea, vomiting. Physical Exam Vitals & Measurements T: 37 ???C(Oral) HR: 73(Peripheral) BP: 126/91 HT: 64 in HT: 162 cm WT: 104.3 kg WT: 229.942 lb BMI: 39.74 General: nontoxic, NAD Mouth: moist mucosa Lungs: normal respiratory effort Cardio: regular rate, good distal perfusion Abdomen: nondistended Neurologic: Grossly normal Skin: No rashes or suspicious lesions Assessment/Plan 1. Flank pain (R10.9: Unspecified abdominal pain) 01/22/24: Saw PCP late Dec d/t burning w urination for several days. Told she had a UTI. Treated w Cipro x 10d. Burning went away. However a few days later she noticed R flank pain. Constant dull ache, /10. Not worse w movement. Went to [facility] 01/07 - CT negative for stone or hydro, nl white count, nl GFR, UA +leuks/+hgb. Treated w Bactim x 5d. Urine cx came back negative. Pain has not improved since ER visit. Does not change with full bladder or urination. No hx stones. No hx UTIs. The one in Dec was her first. Happened after recently becoming sexually active. No evidence of pyelo. Nontoxic. Independent review of CT from 01/07 shows 2x2mm calcification R pelvis (115 axial, 39 coronal). Phlebolith vs distal ureteral stone? GPC reviewed and thinks more likely phlebolith. Will try empiric MET in case it is a distal stone causing the pain. Will start Flomax and Toradol. Pt will f/u in 2 weeks if sx persist and will need to decide if needs additional imaging or see PCP for non- etiologies. If sx completely resolve, can f/u PRN. TODAY: Pain has not improved. Not really worsening either, but it does radiate to RLQ/RUQ abdomen now (it didn't previously). Pain is daily, intermittent, waxes & wanes in severity. Pt does not have a gallbladder. Does still have an appendix. No gross hematuria. No LUTS. UA looks normal. Will check IVP. If negative, pt to f/u w PCP to assess for non- etiologies. Stop Flomax unless stone confirmed. Ordered: Creatinine E&M of Est. Patient Moderate 30-39 Min 97031 Urnls Dip Stick Auto w/o Microscopy POC [id number] XR IVP Follow-up With When Contact Information MIKE LUGO, SHANTA Banegas, URL [address] [place] [address] Business (1) Additional Instructions: pending results of imaging/testing, will call with next steps Patient Education Flank Pain, Adult Problem List/Past Medical History Ongoing No qualifying data Historical No qualifying data Procedure/Surgical History Arthroscopy of knee (06/21/2017), eye surgery after poked with pencil. Medications Flomax 0.4 mg Cap, 0.4 mg= 1 cap(s), Oral, Daily ketorolac 10 mg Tab, 10 mg= 1 tab(s), Oral, QID Qulipta 60 mg oral tablet, 1 tab(s), Oral, Once a day (at bedtime) topiramate 200 mg oral capsule, extended release, 1 tab(s), Oral, Daily Trileptal 600 mg Tab, 600 mg= 1 tab(s), Oral, Bedtime Allergies No Known Allergies Social History Alcohol - Denies Alcohol Use, 06/15/2017 Never., 01/21/2024 Substance Abuse - Denies Substance Abuse, 06/15/2017 Never., 01/21/2024 Tobacco - Denies Tobacco Use, 06/15/2017 Never (less than 100 in lifetime) Tobacco Use:. Never Smokeless Tobacco Use:., 02/05/2024 Immunizations Vaccine Date Status SARS-CoV-2 (COVID-19) mRNA BNT-162b2 vax 07/06/2020 Recorded SARS-CoV-2 (COVID-19) mRNA BNT-162b2 vax 06/11/2020 Recorded influenza virus vaccine, inactivated 12/06/2017 Recorded influenza virus vaccine, inactivated 11/28/2016 Recorded influenza virus vaccine, inactivated 11/17/2015 Recorded diphtheria/pertussis, acel/tetanus adult 11/14/2011 Recorded measles/mumps/rubella virus vaccine 10/05/1999 Recorded hepatitis B pediatric vaccine 10/05/1999 Recorded Hib, unspecified formulation 12/12/1990 Recorded measles/mumps/rubella virus vaccine 01/17/1989 Recorded Lab Results Ambulatory Point of Care Results Bilirubin Urine Dipstick: Negative (02/05/24 12:06:00) Blood Urine Dipstick: Negative (02/05/24 12:06:00) Glucose Urine Dipstick: Negative (02/05/24 12:06:00) Ketones Urine Dipstick: Negative (02/05/24 12:06:00) Leukocytes Urine Dipstick: Negative (02/05/24 12 (more content not included)... Normal [facility] Comment on above: Result Comment: Elec tronically Signed By: SHANTA MCKEON PA-C\Date and Time Signed: 02/05/24 12:51 EST Provider Letteron 01-22-2024 Provider Letter Provider Letter January 22, 2024 IQRA NGUYEN [birth year][address] [place] [address] : 1985 To Whom It May Concern, Please excuse above patient from work. Date of Appointment: From: 01/22/24 To: _ May Return to Work On:01/22/24 Restrictions: none Comments: Any questions, please call our office. Sincerely, [facility] [address], [place] [address] Normal [facility] Urology Office/Clinic Noteon 01-22-2024 Urology Office/Clinic Note Urology Office/Clinic Note Chief Complaint ER f/u HPI Staff 38 yr old female in for [facility] f/u, due to Rt flank pain. 12/25 - Saw PCP d/t burning w urination for several days. Told she had a UTI. Treated w Cipro x 10d. Burning went away. However a few days later she noticed R flank pain. Constant dull ache, 8/10. Not worse w movement. Went to [facility] 01/07 - CT negative for stone or hydro, nl white count, nl GFR, UA +leuks/+hgb. Treated w Bactim x 5d. Urine cx came back negative. Pain has not improved since ER visit. Does not radiate to abdomen. Does not change with full bladder or urination. No fever, chills, nausea, vomiting. No known injury to the area. No hx stones. No hx UTIs. The one in Nov was her first. Happened after recently becoming sexually active. Pt unable to give urine sample at this time. Dysuria: denies Incomplete bladder emptying: denies Hematuria: does not think it was related to urinary symptoms - pt near menses Frequency: pt feels she has not been going as frequently as she usually does, goes about 3-4x per day Urgency: denies Nocturia: denies Stream: has hesitancy at the start of stream, good stream once starting to urinate Leaking: denies Abdominal pain: denies Flank pain: right side pain, at ER diagnosed with UTI & treated with ATB Sexual complaints: denies Review of Systems PHQ Score Initial Depression Screen Score: 1 SCORE no fever, chills, malaise, myalgia. no rash/lesions. no chest pain, palpitations, or SOB. no abdominal pain, nausea, vomiting. Physical Exam Vitals & Measurements T: 37 ???C(Oral) HR: 84(Peripheral) RR: 18 BP: 128/86 HT: 63 in HT: 160 cm WT: 105.7 kg WT: 233.028 lb BMI: 41.29 General: nontoxic, NAD Mouth: moist mucosa Lungs: normal respiratory effort Cardio: regular rate, good distal perfusion Abdomen: nondistended, no suprapubic distention or tenderness, mild R CVA tenderness Neurologic: Grossly normal Skin: No rashes or suspicious lesions Assessment/Plan 1. Flank pain (R10.9: Unspecified abdominal pain) No evidence of pyelo. Nontoxic. Independent review of CT from 01/07 shows 2x2mm calcification R pelvis (115 axial, 39 coronal). Phlebolith vs distal ureteral stone? GPC reviewed and thinks more likely phlebolith. Will try empiric MET in case it is a distal stone causing the pain. Will start Flomax and Toradol. Risks/benefits/side effects discussed. Pt will f/u in 2 weeks if sx persist and will need to decide if needs additional imaging or see PCP for non- etiologies. If sx completely resolve, can f/u PRN. Ordered: Body Mass Index (BMI) documented 3008F Current tobacco non-user 1036F Depression Screening Negative 3352F E&M of New Patient Moderate 45-59 Min 44397 Influenza immunization status assessed 1030F Medication list documented in medical record 1159F Most recent diastolic blood pressure 80-89 mm Hg 3079F Review of all meds by a prescribing practitioner or clinical pharmacist documented in EHR 1160F Systolic BP <130 mm Hg (Most Recent) 3074F Orders: ketorolac, 10 mg = 1 tab(s), Oral, q6hr, PRN for pain, not to exceed 40 mg/day and 5 days duration for all dose forms, X 5 day(s), # 20 tab(s), Refills(s) 0, Pharmacy: [facility], 160, cm, 01/22/24 11:28:00 EST, Height/Length Dosing, 105.7, kg, ... tamsulosin, 0.4 mg = 1 cap(s), Oral, Daily, # 30 cap(s), Refills(s) 0, Pharmacy: [facility], 160, cm, 01/22/24 11:28:00 EST, Height/Length Dosing, 105.7, kg, 01/22/24 11:28:00 EST, Weight Dosing Follow-up With When Contact Information 2 week with Shanta XIAO Additional Instructions: Patient Education Flank Pain, Adult Problem List/Past Medical History Ongoing No qualifying data Historical No qualifying data Procedure/Surgical History Arthroscopy of knee (06/21/2017), eye surgery after poked with pencil. Medications Flomax 0.4 mg Cap, 0.4 mg= 1 cap(s), Oral, Daily ketorolac 10 mg Tab, 10 mg= 1 tab(s), Oral, q6hr, PRN Qulipta 60 mg oral tablet, 1 tab(s), Oral, Once a day (at bedtime) topiramate 200 mg oral capsule, extended release, 1 tab(s), Oral, Daily Trileptal 600 mg Tab, 600 mg= 1 tab(s), Oral, Bedtime Allergies No Known Allergies Social History Alcohol - Denies Alcohol Use, 06/15/2017 Never., 01/21/2024 Substance Abuse - Denies Substance Abuse, 06/15/2017 Never., 01/21/2024 Tobacco - Denies Tobacco Use, 06/15/2017 Never (less than 100 in lifetime) Tobacco Use:. Never Smokeless Tobacco Use:., 01/22/2024 Immunizations Vaccine Date Status SARS-CoV-2 (COVID-19) mRNA BNT-162b2 vax 07/06/2020 Recorded SARS-CoV-2 (COVID-19) mRNA BNT-162b2 vax 06/11/2020 Recorded influenza virus vaccine, inactivated 12/06/2017 Recorded influenza virus vaccine, inactivated 11/28/2016 Recorded influenza virus vaccine, inactivated 11/17/2015 Recorded diphtheria/pertussis, acel/tetanus adult 11/14/2011 Recorded measles/mumps/rubella virus vaccine 10/05/1999 Recorded hepati (more content not included)... Normal [facility] Comment on above: Result Comment: Elec tronically Signed By: SHANTA MCKEON PA-C\.br\Date and Time Signed: 01/22/24 13:05 EST C Urineon 01-10-2024 Bacteria identified Cx Nom (U) Microbiology PROCEDURE: Urine Culture [R1] SOURCE: U CleanCatch BODY SITE: COLLECTED DATE/TIME: 01/08/2024 13:23 EST RECEIVED DATE/TIME: 01/08/2024 14:44 EST START DATE/TIME: 01/08/2024 14:44 EST FREE TEXT SOURCE: Davina LUGO, Benny Ghosh PA-C, Benny FINAL REPORTS Final Report [] Verified Date/Time: 01/10/2024 08:58 EST <10,000 cfu/ml Mixed skin contaminants Performing Locations R1: This test was performed at: [facility], [address] [place] [address], [id number] , , [place] Comment on above: Performed By: #### 2 [id number] ####[facility] [id number] [place] [address] BMPon 01-08-2024 Anion gap [Moles/Vol] 10 mmol/L Normal 6-16 [facility] Comment on above: Performed By: #### 2 [id number] #### [facility] [address] [place] [address] Calcium [Mass/Vol] 8.9 mg/dL Normal 8.9-11.1 [facility] Comment on above: Performed By: #### 2 [id number] #### [facility] [address] [place] [address] Chloride [Moles/Vol] 107 mmol/L Normal 101-111 [facility] Comment on above: Performed By: #### 2 [id number] #### [facility] [address] [place] [address] CO2 [Moles/Vol] 24 mmol/L Normal 21-31 [facility] Comment on above: Performed By: #### 2 [id number] #### [facility] [address] [place] [address] Creatinine [Mass/Vol] 0.8 mg/dL Normal 0.5-1.3 [facility] Comment on above: Performed By: #### 2 [id number] #### [facility] [address] [place] [address] Glucose [Mass/Vol] 102 mg/dL Normal 55-199 [facility] Comment on above: Performed By: #### 2 [id number] #### [facility] [address] [place] [address] Potassium [Moles/Vol] 4.3 mmol/L Normal 3.5-5.3 [facility] Comment on above: Performed By: #### 2 [id number] #### [facility] [address] [place] [address] Sodium [Moles/Vol] 137 mmol/L Normal 135-145 [facility] Comment on above: Performed By: #### 2 [id number] #### [facility] [address] [place] [address] Urea nitrogen [Mass/Vol] 10 mg/dL Normal 5-21 [facility] Comment on above: Performed By: #### 2 [id number] #### [facility] [address] [place] [address] Urea nitrogen/Creatinine [Mass ratio] 12 No Units Normal 10-20 [facility] Comment on above: Performed By: #### 2 [id number] #### [facility] [address] [place] [address] CBC w/ Auto Diffon 4 Basophils/100 WBC (Bld) 0.6 % Normal 0.0-2.[address] [facility] Comment on above: Performed By: #### 2 [id number] #### [facility] [address] [place] [address] Basophils/Leukocytes Auto (Bld) [Pure # fraction] 0.1 E9/L Normal 0.0-0.2 [facility] Comment on above: Performed By: #### 2 [id number] #### [facility] [address] [place] [address] Eosinophils (Bld) [#/Vol] 0.1 E9/L Normal 0.0-0.5 [facility] Comment on above: Performed By: #### 2 [id number] #### [facility] [address] [place] [address] Eosinophils/100 WBC (Bld) 1.1 % Normal 0.0-8.0 [facility] Comment on above: Performed By: #### 2 [id number] #### [facility] [address] [place] [address] Erythrocyte distribution width (RBC) [Ratio] 13.9 % Normal 10.9-14.2 [facility] Comment on above: Performed By: #### 2 [id number] #### [facility] [address] [place] [address] Hematocrit (Bld) [Volume fraction] 36.8 % Normal 34.0-46.0 [facility] Comment on above: Performed By: #### 2 [id number] #### [facility] [address] [place] [address] Hemoglobin (Bld) [Mass/Vol] 12.5 g/dL Normal 12.0-16.0 [facility] Comment on above: Performed By: #### 2 [id number] #### [facility] [address] [place] [address] Lymphocytes (Bld) [#/Vol] 3.1 E9/L Normal 1.0-4.0 [facility] Comment on above: Performed By: #### 2 [id number] #### [facility] [address] [place] [address] Lymphocytes/100 WBC (Bld) 35.1 % Normal 14.0-50.0 [facility] Comment on above: Performed By: #### 2 [id number] #### [facility] [address] [place] [address] MCH (RBC) [Entitic mass] 31.7 pg Normal 27.0-34.0 [facility] Comment on above: Performed By: #### 2 [id number] #### [facility] [address] [place] [address] MCHC (RBC) [Mass/Vol] 33.9 g/dL Normal 31.4-36.0 [facility] Comment on above: Performed By: #### 2 [id number] #### [facility] [address] [place] [address] MCV (RBC) [Entitic vol] 93.4 fL Normal 80.0-100.[address] [facility] Comment on above: Performed By: #### 2 [id number] #### [facility] [address] [place] [address] Monocytes (Bld) [#/Vol] 0.6 E9/L Normal 0.2-1.[address] [facility] Comment on above: Performed By: #### 2 [id number] #### [facility] [address] [place] [address] Neutrophils (Bld) [#/Vol] 5.0 E9/L Normal 2.0-7.5 [facility] Comment on above: Performed By: #### 2 [id number] #### [facility] [address] [place] [address] Neutrophils/100 WBC (Bld) 56.3 % Normal 36.0-75.0 [facility] Comment on above: Performed By: #### 2 [id number] #### [facility] [address] [place] [address] Platelet 340.0 E9/L Normal 150.0-500.0 [facility] Comment on above: Performed By: #### 2 [id number] #### [facility] [address] [place] [address] Platelet mean volume (Bld) [Entitic vol] 5.9 fL Low 6.4-10.8 [facility] Comment on above: Performed By: #### 2 [id number] #### [facility] [address] [place] [address] RBC (Bld) [#/Vol] 3.9 E12/L Low 4.3-5.9 [facility] Comment on above: Performed By: #### 2 [id number] #### [facility] [address] [place] [address] WBC corrected for nucl RBC Auto (Bld) [#/Vol] 8.8 E9/L Normal 4.0-11.0 [facility] Comment on above: Performed By: #### 2 [id number] #### [facility] [address] [place] [address] CHEMISTRYOrdered By: SYSTEM SYSTEM on 01-08-2024 Albumin [Mass/Vol] 4.3 g/dL Normal 3.3 - 5.0 gm/dL Remisol Chem Albumin/Globulin [Mass ratio] 1.3 {ratio} Normal 1.1 - 2.2 Remisol Chem ALP [Catalytic activity/Vol] 51 [iU]/d Normal 21 - 98 Int._Unit/L Remisol Chem ALT No additional P-5'-P [Catalytic activity/Vol] 13 [iU]/d Normal 6 - 46 Int._Unit/L Remisol Chem Anion gap [Moles/Vol] 10 mmol/L Normal 6 - 16 mEq/L [facility] AST [Catalytic activity/Vol] 13 [iU]/d Normal 5 - 43 Int._Unit/L [facility] Bilirubin [Mass/Vol] 0.3 mg/dL Normal 0.0 - 1 .1 mg/dL Rem[facility] Bilirubin.direct [Mass/Vol] 0.0 mg/dL Normal 0.0 - 0.4 mg/dL Remisol Chem Bilirubin.indirect [Mass or moles/Vol] 0.3 mg/dL Normal 0.1 - 0.9 mg/dL [facility] Calcium [Mass/Vol] 8.9 mg/dL Normal 8.9 - 11. 1 mg/dL [facility] Chloride [Moles/Vol] 107 mmol/L Normal 101 - 1 11 mmol/L [facility] CO2 [Moles/Vol] 24 mmol/L Normal 21 - 31 mmol/L [facility] Creatinine [Mass/Vol] 0.8 mg/dL Normal 0.5 - 1.3 mg/dL [facility] eGFR 97 mL/min/1.73 m2 Normal >=59mL/min / 1.73 m2 [facility] Globulin (S) [Mass/Vol] 3.2 g/dL Normal 1.4 - 4.0 gm/dL [facility] Glucose [Mass/Vol] 102 mg/dL Normal 55 - 199 mg/dL [facility] Lipase [Catalytic activity/Vol] 27 U/L Normal 13 - 58 unit/L [facility] Potassium [Moles/Vol] 4.3 mmol/L Normal 3.5 - 5.3 mmol/L [facility] Protein [Mass/Vol] 7.5 g/dL Normal 6.0 - 7.8 gm/dL [facility] Sodium [Moles/Vol] 137 mmol/L Normal 135 - 145 mmol/L [facility] Urea nitrogen [Mass/Vol] 10 mg/dL Normal 5 - 21 mg/dL [facility] Urea nitrogen/Creatinine [Mass ratio] 12 mg/mg Normal 10 - [address] Abdomen/Pelvis w/o Contra carloz 01-08-2024 CT Abdomen/Pelvis w/o Contrast Exam Date/Time: 01/08/2024 13:22 EST Reason for Exam: ABDOMINAL PAIN, ACUTE, NONLOCALIZED;Other (please specify) Report IMPRESSION: NO EVIDENCE OF OBSTRUCTIVE UROPATHY. NO EVIDENCE OF ACUTE ABDOMINAL OR PELVIC PATHOLOGY. CLINICAL HISTORY: ABDOMINAL PAIN, ACUTE, NONLOCALIZED. COMMENT: Unenhanced images were obtained. No renal nor ureteral calculus is noted. The renal collecting systems are not dilated. Both kidneys appear unremarkable, within the limits of this unenhanced study. The superior portions of the liver and spleen are not included within the [id number] of this renal stone protocol study. The visualized portions of the liver and spleen are unremarkable. There are surgical clips at the gallbladder fossa, from prior cholecystectomy. No biliary ductal dilatation is evident. The pancreas and adrenal glands are unremarkable. There is no retroperitoneal lymphadenopathy. The abdominal aorta is normal in diameter. No aneurysm is evident. Evaluation of bowel is limited on this study. The bowel loops are not dilated. There is no evidence of bowel obstruction. The appendix is normal. There is fecal material in the colon, which limits evaluation. There is no evidence of diverticulitis. No abdominal inflammatory complex, no free air, nor free fluid is noted. The uterus is anteverted. The urinary bladder is unremarkable. No bladder calculus is evident. There is no pelvic mass nor pelvic lymphadenopathy. There is spondylosis, with relatively mild hypertrophic spurring of lumbar and visualized lower thoracic vertebral bodies. There is some interspace narrowing at L5-S1. All CT scans at this facility use dose modulation, iterative reconstruction, and/or weight based dosing when appropriate to reduce radiation dose to as low as reasonably achievable. Unless otherwise stated, incidental findings identified in this report do not require routine follow-up imaging. Report Ordering Provider: Ashley Alston FINAL REPORT Dictated: 01/08/2024 1:44 pm Jeramie Pineda M.D. Signed (Electronic Signature): 01/08/2024 1:44 pm Signed by: Jeramie Pineda M.D. Transcribed by: SABRINA Technologist: SAMANTA Technical Comments Rectal Contrast Given? No Oral contrast amount in ml's: 0 Normal [facility] ED Clinical Summaryon 2023 ED Clinical Summary ED Clinical Summary [place] [id number] ED Clinical Summary Person Information Name: IQRA NGUYEN [facility] Age: 38 Years : 1985 Sex: Female Language: Czech PCP: JUANA BENSON DO Marital Status: Single Phone: [phone] MRN: [id number] Visit Id: Visit Reason: Dysuria; Flank pain; Pain in R side, urination issues Speciality: Acuity: 3 Enc Type: Emergency Med Service: Emergency Arrival: 01/08/2024 12:03:21 Discharge: 01/08/2024 14:29:05 LOS: 000 02:26 Checkin: 01/08/2024 12:03:21 Checkout: 01/08/2024 14:29:05 Dispo Type: Home (Routine DC) EVENTS: Event Name Event Status Request Date/Time Start Date/Time Complete Date/Time Arrive Complete 01/08/2024 12:03:21 01/08/2024 12:03:21 01/08/2024 12:03:21 Document Home Meds Request 01/08/2024 12:03:21 Triage Complete 01/08/2024 12:03:21 01/08/2024 12:12:48 01/08/2024 12:12:48 Bed Assign Complete 01/08/2024 12:07:01 01/08/2024 12:07:01 01/08/2024 12:07:01 Dr Exam Complete 01/08/2024 12:07:01 01/08/2024 12:23:33 01/08/2024 12:23:33 RN Exam Complete 01/08/2024 12:07:01 01/08/2024 12:54:52 01/08/2024 12:54:52 Registration Complete 01/08/2024 12:11:57 01/08/2024 12:11:57 01/08/2024 12:11:57 Reg Complete Request 01/08/2024 12:11:57 Reg Bed Request Complete 01/08/2024 12:11:57 01/08/2024 12:11:57 01/08/2024 12:11:57 Registration Request 01/08/2024 12:23:33 Dr Exam Complete 01/08/2024 12:23:49 01/08/2024 12:23:49 01/08/2024 12:23:49 Pending Labs Complete 01/08/2024 12:24:07 01/08/2024 13:51:42 Dr Exam Complete 01/08/2024 12:27:45 01/08/2024 12:27:45 01/08/2024 12:27:45 CT Complete 01/08/2024 12:47:20 01/08/2024 13:13:46 01/08/2024 13:22:31 Pending Labs Complete 01/08/2024 12:47:20 01/08/2024 13:23:42 Lab Complete 01/08/2024 12:47:20 01/08/2024 13:23:42 Pending Labs Complete 01/08/2024 13:01:49 01/08/2024 13:01:49 01/08/2024 13:23:42 Lab Complete 01/08/2024 13:01:49 01/08/2024 13:01:49 01/08/2024 13:23:42 Pending Labs Complete 01/08/2024 13:04:19 01/08/2024 13:04:19 01/08/2024 13:04:19 Patient Care Complete 01/08/2024 13:25:28 01/08/2024 13:27:27 Pending Labs Complete 01/08/2024 13:30:57 01/08/2024 13:57:25 Lab Complete 01/08/2024 13:30:57 01/08/2024 13:57:25 Urine Collect Complete 01/08/2024 13:30:57 01/08/2024 13:57:25 Pending Labs Collected 01/08/2024 13:51:43 01/08/2024 13:51:43 Lab Collected 01/08/2024 13:51:43 01/08/2024 13:51:43 Discharge Complete 01/08/2024 14:16:54 01/08/2024 14:29:10 01/08/2024 14:29:10 Transfer Complete 01/08/2024 14:29:10 01/08/2024 14:29:10 01/08/2024 14:29:10 AD[address]: [address] [id number] PHYS DOC NOTES: MEDICAL INFORMATION: Prescriptions Given: New Medications [facility] 1985, [address] [place], [place] [id number], [phone] sulfamethoxazole-trimet hoprim (Bactrim D.S. 800 mg-160 mg Tab) 1 Tablets By Mouth 2 times a day for 5 Days. Refills: 0. Medications to Continue with No Changes Other Medications acetaminophen-hydrocodo ne (Stanley 325 mg-5 mg oral tablet) 1 Tablets By Mouth every 4 hours as needed PC for pain. Refills: 0. ibuprofen (ibuprofen 800 mg Tab) 1 Tablets By Mouth 3 times a day. oxcarbazepine (Trileptal 600 mg Tab) 1 Tablets By Mouth at bedtime. PATIENT EDUCATION INFORMATION: Instructions: Urinary Tract Infection, Adult, Qykk-vd-Xlvd Follow up: With: Address: When: [address] [place] [id number] Business (1) In 3 days 01/11/2024 Comments: Call to schedule a follow-up appointment with urology in the next 2 to 3 days if symptoms do not improve following this course of antibiotics. Take the antibiotics in entirety. Return to the ED with any new or worsening symptoms. With: Address: When: JUANA BENSON [address] [place] [address] Business (1) In 3 days DIAGNOSIS: Acute UTI (urinary tract infection); Acute right flank pain Normal [facility] ED Note-Physicianon 01-08-20 ED Note-Physician ED Note-Physician Basic Information Time Seen: Alecia LUGO, Ashley Yarbrough 01/08/2024 12:23 Chief Complaint recently dx uti, finished atb Sunday. now c/o right flank pain and only urinating twice a day. History of Present Illness Patient is a 38 year old female who presents to the ED for evaluation of right flank pain. She states this started approximately two days ago. She was treated for a UTI on the 25 of December, but she states that those symptoms have since resolved. Patient states she does not remember the antibiotic that she was taking but completed in entirety. She characterizes the pain as a constant dull 8/10 ache. Patient states she had difficulty falling asleep last night due to the pain. She does not have any past history of kidney stones, but is worried she may have one. She also states that she is only urinating twice per day, which is decreased from baseline. Patient notes she is continuing to drink water as normal. She denies nausea/vomiting, fevers, dysuria, paresthesia, numbness or tingling to the perineal area. Review of Systems A 10 point review of systems is negative except as noted above. Medical and Surgical History: Reviewed and noted Social history: Lives at home Family History: Reviewed. Tobacco: denies Physical Exam Vitals & Measurements T: 36.5 ???C(Oral) HR: 71(Peripheral) RR: 20 BP: 147/87 SpO2: 100% HT: 160 cm WT: 109 kg BMI: 42.58 General: The patient appears well and in no apparent distress. Patient is resting comfortably on cart. Skin: Warm, dry, no pallor noted. Head: Normocephalic, atraumatic Neck: No JVD Eye: PERRLA, EOMI ENT: Moist mucus membranes Cardiovascular: Regular rate normal peripheral perfusion Respiratory: No respiratory distress no accessory muscle use no obvious audible wheezing Chest Wall: no deformity Musculoskeletal: normal ROM, no deformity, no swelling GI: Soft no obvious distention. No rebound or rigidity. No guarding. Right CVA tenderness. Neurological: A&O moves all extremities equal strength and symmetry Psychiatric: Cooperative and appropriate Procedure IAshley PA-C had a vcha-gr-lwxd interaction with the patient. I personally performed a physical exam and medical decision making. I have verified the documentation by the student as accurately representing the information obtained. Medical Decision Making Patient is a 38 year old female who presents to the ED for evaluation of right flank pain. Patient is hemodynamically stable and afebrile. She denies the need for pain medication while in the ED. Postvoid bladder scan is 84 cc. Lab work is reviewed and unremarkable. On exam there is right CVA tenderness, therefore a CT abdomen/pelvis was obtained due to concerns of kidney stone versus pyelonephritis, which is negative for any acute intra-abdominal abnormalities. Urinalysis is positive for 75 leukocyte esterase, RBC, and 1+ blood. Beta-hCG is negative. Chart review shows the patient was previously on ciprofloxacin prescribed on 12/25 for her prior UTI. There are no prior urine cultures for antibiotic decision making. Patient is being prescribed Bactrim. She will follow-up with urology if symptoms do not improve following this course of antibiotics. She was advised to return to ED with any new or worsening symptoms. Patient is agreeable with the plan and all questions were answered. Assessment/Plan Acute right flank pain (R10.9: Unspecified abdominal pain) Acute UTI (urinary tract infection) (N39.0: Urinary tract infection, site not specified) Orders: sulfamethoxazole-trimet hoprim, 1 tab(s), Oral, BID for 5 day(s), 10 tab(s), Refill(s) 0, [facility] 1984, 160, cm, 01/08/24 12:12:00 EST, Height/Length Dosing, 109, kg, 01/08/24 12:12:00 EST, Weight Dosing Basic Metabolic Panel Bladder Scan CBC w/ Auto Diff CT Abdomen/Pelvis w/o Contrast eGFR Extra Blue Tube Extra SST Tube Hepatic Function Panel Lipase Level U Beta Hcg Qual Disposition Plan Patient Discharge Condition stable Discharge Disposition home Discharge Prescription List Prescriptions Bactrim D.S. 800 mg-160 mg Tab, 1 tab(s), Oral, BID Follow-up With When Contact Information [facility] In 3 days 01/11/2024 EST [address] [place] [address]- Business (1) Additional Instructions: Call to schedule a follow-up appointment with urology in the next 2 to 3 days if symptoms do not improve following this course of antibiotics. Take the antibiotics in entirety. Return to the ED with any new or worsening symptoms. JUANA BENSON In [address] [place] [address]- Business (1) Additional Instructions: Patient Education Urinary Tract Infection, Adult, Uzgr-go-Gail Attestation Patient seen and evaluated by the physician claims assistant. Attending physician was present in the emergency department and supervised care. This visit was performed by both the physician and an APC. I performed all aspects of t (more content not included)... Normal [facility] Comment on above: Result Comment: Elec tronically Signed By: Fausto Grant T\.br\Electronically Co-Signed By: Ashley Alston PA-C\.br\Date and Time Co-Signed: 01/08/24 14:19 EST\.br\Electronically Co-Signed By: Julius Maria DO\.br\Date and Time Co-Signed: 01/08/24 18:52 EST Result Comment: Elec tronically Signed By: Julius Maria DO\.br\Date and Time Signed: 01/08/24 18:52 EST\.br\Electronically Co-Signed By: Ashley Alston PA-C\.br\Date and Time Co-Signed: 01/08/24 14:19 EST ED Note-Physician ED Note-Physician Basic Information Time Seen: Ashley Alston PA-C 01/08/2024 12:23 Chief Complaint recently dx uti, finished atb Sunday. now c/o right flank pain and only urinating twice a day. Physical Exam Vitals & Measurements T: 36.5 ???C(Oral) HR: 71(Peripheral) RR: 20 BP: 147/87 SpO2: 100% HT: 160 cm WT: 109 kg BMI: 42.58 Assessment/Plan Disposition Plan Discharge Prescription List Prescriptions No active prescription medications Follow-up No qualifying data available Problem List/Past Medical History Ongoing No qualifying data Historical No qualifying data Procedure/Surgical History Arthroscopy of knee (06/21/2017), eye surgery after poked with pencil. Medications Inpatient No active inpatient medications Home ibuprofen 800 mg Tab, 800 mg= 1 tab(s), Oral, TID, Not taking Stanley 325 mg-5 mg oral tablet, 1 tab(s), Oral, q4hr, PRN, Not taking Trileptal 600 mg Tab, 600 mg= 1 tab(s), Oral, Bedtime Allergies No Known Allergies Social History Alcohol - Denies Alcohol Use, 06/15/2017 Substance Abuse - Denies Substance Abuse, 06/15/2017 Tobacco - Denies Tobacco Use, 06/15/2017 Never (less than 100 in lifetime) Tobacco Use:. Never Smokeless Tobacco Use:., 02/21/2020 Lab Results No qualifying data available. Diagnostic Results No qualifying data available. Normal [facility] Comment on above: Other Comment: Accid ental duplicate ED Patient Summaryon 024 ED Patient Summary ED Patient Summary [place] [id number] Patient Discharge Instructions Person Information Name: IQRA NGUYEN Age: 38 Years Arrival Date: 01/08/2024 12:03:21 Discharge Diagnosis: Acute UTI (urinary tract infection); Acute right flank pain Primary Care Physician: JUANA BENSON DO Provider Information Primary Provider: Julius Maria DO Advanced Cornice Upholsterer:Ashley Alston PA-C The exam and treatment you received in the Emergency Department were for an urgent problem and are not intended as complete care. It is important that you follow up with a doctor, nurse practitioner, or physician???s claims assistant for ongoing care. If your symptoms become worse or you do not improve as expected and you are unable to reach your usual health care provider, you should return to the Emergency Department. We are available 24 hours a day. IQRA NGUYEN has been given the following list of patient education materials, prescriptions and follow-up instructions: Follow-up Instructions: With: Address: When: [address] [place] [address] Business (1) In 3 days 01/11/2024 Comments: Call to schedule a follow-up appointment with urology in the next 2 to 3 days if symptoms do not improve following this course of antibiotics. Take the antibiotics in entirety. Return to the ED with any new or worsening symptoms. With: Address: When: JUANA BENSON [address] [place] [address] Business (1) In 3 days In the event that this physician does not participate in your insurance network, please consult with your insurance company to find a nearby participating provider. Patient Education Materials: Urinary Tract Infection, Adult, Fujj-cp-Pqra A MESSAGE TO ALL PATIENTS REGARDING OPIOIDS PRESCRIPTION OPIOIDS: WHAT YOU NEED TO KNOW Prescription opioids can be used to help relieve mjipayqq-mz-jmmpea pain and are often prescribed following a surgery or injury, or for certain health conditions. These medications can be an important part of the treatment but also come with serious risks. It is important to work with your healthcare provider to make sure you are getting the safest, most effective care. WHAT ARE THE RISKS AND SIDE EFFECTS OF OPIOID USE? Prescription opioids carry serious risks of addiction and overdose, especially with prolonged use. An opioid overdose, often marked by slowed breathing, can cause sudden . The use of prescription opioids can have a number of side effects as well, even when taken as directed: ??? Tolerance???meaning you might need to take more of the medication for the same pain relief ??? Physical dependence???meaning you have symptoms of withdrawal when a medication is stopped ??? Increased sensitivity to pain ??? Constipation ??? Nausea, vomiting, and dry mouth ??? Sleepiness and dizziness ??? Confusion ??? Depression ??? Low levels of testosterone that can result in lower sex drive, energy, and strength ??? Itching and sweating RISKS ARE GREATER WITH: ??? History of drug misuse, substance use disorder, or overdose ??? Mental health conditions (such as depression or anxiety) ??? Sleep apnea ??? Older age (65 years and older) ??? Avoid alcohol while taking prescription opioids. Also, unless specifically advised by your health care provider, medications to avoid include: ??? Benzodiazepines (such as Xanax or Valium) ??? Muscle relaxants (such as Soma or Flexeril) ??? Hypnotics (such as Ambien or Lunesta) ??? Other prescription opioids KNOW YOUR OPTIONS Talk to your health care provider about ways to manage your pain that don???t involve prescription opioids. Some of these options may actually work better and have fewer risks and side effects. Options may include: ??? Pain relievers such as acetaminophen, ibuprofen, and naproxen ??? Some medication that are also used for depression or seizures ??? Physical therapy and exercise ??? Cognitive behavioral therapy, a psychological, goal-directed approach, in which patients learn how to modify physical, behavioral, and emotional triggers of pain and stress. IF YOU ARE PRESCRIBED OPIOIDS FOR PAIN: ??? Never take opioids in greater amounts or more often than prescribed. ??? Follow up with your primary health care provider. o Work together to create a plan on how to manage your pain. o Talk about ways to help manage your pain that don???t involve prescription opioids. o Talk about any and all concerns and side effects. ??? Help prevent misuse and abuse o Never sell or share prescription opioids. o Never use another person???s prescription opioids. ??? Store prescription opioids in a secure place and out of reach of others (this may include visitors, children, friends, and family). ??? Safel (more content not included)... Normal [facility] Extra Blueon 01-08-2024 Tube Collected Plasma Yes Invalid Interpretation Code [facility] Comment on above: Performed By: #### 1 [id number] #### [facility] Laboratory [address] [place] [address] HEMATOLOGYOrdered By: SYSTEM SYSTEM on 01-08-2024 Basophils/100 WBC (Bld) 0.6 % Normal 0.0 - 2.0 % Remisol Heme Basophils/Leukocytes Auto (Bld) [Pure # fraction] 0.1 E9/L Normal 0.0 - 0.2 E9/L Remisol Heme Eosinophils (Bld) [#/Vol] 0.1 E9/L Normal 0.0 - 0.5 E9/L Remisol Heme Eosinophils/100 WBC (Bld) 1.1 % Normal 0.0 - 8.0 % Remisol Heme Erythrocyte distribution width (RBC) [Ratio] 13.9 % Normal 10.9 - 14.2 % Remisol Heme Hematocrit (Bld) [Volume fraction] 36.8 % Normal 34.0 - 46.0 % Remisol Heme Hemoglobin (Bld) [Mass/Vol] 12.5 g/dL Normal 12.0 - 16.0 gm/dL Remisol Heme Lymphocytes (Bld) [#/Vol] 3.1 E9/L Normal 1.0 - 4.0 E9/L Remisol Heme Lymphocytes/100 WBC (Bld) 35.1 % Normal 14.0 - 50.0 % Remisol Heme MCH (RBC) [Entitic mass] 31.7 pg Normal 27.0 - 34.0 pg Remisol Heme MCHC (RBC) [Mass/Vol] 33.9 g/dL Normal 31.4 - 36.0 gm/dL Remisol Heme MCV (RBC) [Entitic vol] 93.4 fL Normal 80.0 - 100.0 fL Remisol Heme Monocytes (Bld) [#/Vol] 0.6 E9/L Normal 0.2 - 1.0 E9/L Remisol Heme Monocytes/100 WBC (Bld) 6.9 % Normal 4.0 - 14.0 % Remisol Heme Neutrophils (Bld) [#/Vol] 5.0 E9/L Normal 2.0 - 7.5 E9/L Remisol Heme Neutrophils/100 WBC (Bld) 56.3 % Normal 36.0 - 75.0 % Remisol Heme Platelet 340.0 E9/L Normal 150.0 - 500.0 E9/L Remisol Heme Platelet mean volume (Bld) [Entitic vol] 5.9 fL Low 6.4 - 10.8 fL Remisol Heme RBC (Bld) [#/Vol] 3.9 E12/L Low 4.3 - 5.9 E12/L Remisol Heme WBC corrected for nucl RBC Auto (Bld) [#/Vol] 8.8 E9/L Normal 4.0 - 11.0 E9/L Remisol Heme Hep Func Panelon 01-08-2024 Albumin [Mass/Vol] 4.3 g/dL Normal 3.3-5.0 [facility] Comment on above: Performed By: #### 2 [id number] #### [facility] [address] [place] [address] Albumin/Globulin (S) [Mass conc ratio] 1.3 Normal 1.1-2.2 [facility] Comment on above: Performed By: #### 2 [id number] #### [facility] [address] [place] [address] ALP [Catalytic activity/Vol] 51 Int._Unit/L Normal 21-98 [facility] Comment on above: Performed By: #### 2 [id number] #### [facility] [address] [place] [address] ALT No additional P-5'-P [Catalytic activity/Vol] 13 Int._Unit/L Normal 6-46 [facility] Comment on above: Performed By: #### 2 [id number] #### [facility] [address] [place] [address] AST [Catalytic activity/Vol] 13 Int._Unit/L Normal 5-43 [facility] Comment on above: Performed By: #### 2 [id number] #### [facility] [address] [place] [address] Bilirubin [Mass/Vol] 0.3 mg/dL Normal 0.0-1.1 [facility] Comment on above: Performed By: #### 2 [id number] #### [facility] [address] [place] [address] Bilirubin.direct [Mass/Vol] 0.0 mg/dL Normal 0.0-0.4 [facility] Comment on above: Performed By: #### 2 [id number] #### [facility] [address] [place] [address] Bilirubin.indirect [Mass or moles/Vol] 0.3 mg/dL Normal 0.1-0.9 [facility] Comment on above: Performed By: #### 2 [id number] #### [facility] [address] [place] [address] Globulin (S) [Mass/Vol] 3.2 g/dL Normal 1.4-4.[address] [facility] Comment on above: Performed By: #### 2 [id number] #### [facility] [address] [place] [address] Protein [Mass/Vol] 7.5 g/dL Normal 6.0-7.8 [facility] Comment on above: Performed By: #### 2 [id number] #### [facility] [address] [place] [address] Lipase Levelon 01-08-2024 Lipase [Catalytic activity/Vol] 27 U/L Normal 13-58 [facility] Comment on above: Performed By: #### 2 [id number] #### [facility] [address] [place] [address] SEROLOGYOrdered By: Shanta Diaz on 01-08-2024 HCG.beta subunit (U) [Moles/Vol] Negative Normal [facility] Sero U BetaHcg Qualon 01-08-2024 HCG.beta subunit (U) [Moles/Vol] Negative Normal [facility] Comment on above: Performed By: #### 2 [id number] #### [facility] [address] [place] [address] UA with Cult Rflxon 01-08-20 24 Bacteria Auto Ql (U) Trace Normal Trace Fish er [facility] Comment on above: Performed By: #### 4 [id number] #### [facility] [address] [place] [address] Bilirubin Ql (U) Negative Normal Negative [facility] Comment on above: Performed By: #### 4 [id number] #### [facility] [address] [place] [address] Clarity (U) Clear Normal Clear [facility] Comment on above: Performed By: #### 4 [id number] #### [facility] [address] [place] [address] Color (U) Light-Yellow Normal Yellow [facility] Comment on above: Result Comment: Micr oscopic readings are only performed on those samples that meet specific criteria set forth by [facility]. Performed By: #### 4 [id number] #### [facility] [address] [place] [address] Epithelial cells.squamous Auto (Urine sed) [#/Area] 0-2 Invalid Interpretation Code [facility] Comment on above: Performed By: #### 4 [id number] #### [facility] [address] [place] [address] Glucose Ql (U) Negative Normal Negative [facility] Comment on above: Performed By: #### 4 [id number] #### [facility] [address] [place] [address] Hemoglobin Auto test strip (U) [Mass/Vol] 1+ mg/dL Abnormal Negative [facility] Comment on above: Performed By: #### 4 [id number] #### [facility] [address] [place] [address] Ketones Auto test strip Ql (U) Negative Normal Negative [facility] Comment on above: Performed By: #### 4 [id number] #### [facility] [address] [place] [address] Leukocyte esterase Auto test strip Ql (U) 75 Melissa/uL Abnormal Negative [facility] Comment on above: Performed By: #### 4 [id number] #### [facility] [address] [place] [address] Mucus Auto Ql (U) Trace Normal Negative [facility] Comment on above: Performed By: #### 4 [id number] #### [facility] [address] [place] [address] Nitrite Auto test strip Ql (U) Negative Normal Negative [facility] Comment on above: Performed By: #### 4 [id number] #### [facility] [address] [place] [address] pH (U) 5.0 [pH] Invalid Interpretation Code 5.0-9.0 [facility] Comment on above: Performed By: #### 4 [id number] #### [facility] [address] [place] [address]200 Protein Ql (U) Negative Normal Negative [facility] Comment on above: Performed By: #### 4 [id number] #### [facility] [address] [place] [address] 09351 RBC Ql (U) 4-20 Abnormal 0-3 [facility] Comment on above: Performed By: #### 4 [id number] #### [facility] [address] [place] [address]37 Specific gravity (U) [Rel density] 1.022 Invalid Interpretation Code 1.005-1.030 [facility] Comment on above: Performed By: #### 4 [id number] #### [facility] [address] [place] [address]111 Urobilinogen (U) [Mass/Vol] Negative Normal Negative [facility] Comment on above: Performed By: #### 4 [id number] #### [facility] [address] [place] [address] 60726 WBC Auto (Urine sed) [#/Area] 0-5 Normal 0-5 [facility] Comment on above: Performed By: #### 4 [id number] #### [facility] [address] [place] [phone] Type of Urine collection method Clean Catch Normal [facility] Comment on above: Performed By: #### 4 [id number] #### [facility] [address] [place] [id number] URINALYSISOrdered By: SYSTEM SYSTEM on 01-08-2024 Bacteria Auto Ql (U) Trace /HPF Normal Trace/HPF [facility] U[facility] Auto SS Bilirubin Ql (U) Negative Normal Negativemg/ dL [facility] UA Auto SS Clarity (U) Clear (01/08/24 1:23 PM) Normal Clear [facility] UA Auto SS Color (U) Light-Yellow 1 (01/08/24 1:23 PM) Normal Yellow [facility] UA Auto SS Comment on above: Interpretive Data: M icroscopic readings are only performed on those samples that meet specific criteria set forth by [facility]. Epithelial cells.squamous Auto (Urine sed) [#/Area] 0-2 graded/HPF Invalid Interpretation Code [facility] UA Auto SS Glucose Ql (U) Negative Normal Negativemg/ dL [facility] UA Auto SS Hemoglobin Auto test strip (U) [Mass/Vol] 1+ mg/dL Invalid Interpretation Code Negativemg/ dL [facility] UA Auto SS Ketones Auto test strip Ql (U) Negative Normal Negativemg/ dL [facility] UA Auto SS Leukocyte esterase Auto test strip Ql (U) 75 Melissa/uL Melissa/uL Invalid Interpretation Code NegativeLeu /uL [facility] UA Auto SS Mucus Auto Ql (U) Trace graded/LPF Normal Negati vegra ded/LPF [facility] UA Auto SS Nitrite Auto test strip Ql (U) Negative Normal Negativemg/ dL [facility] UA Auto SS pH (U) 5.0 *NA* (01/08/24 1:23 PM) Invalid Interpretation Code 5.0 - 9.0 [facility] UA Auto SS Protein Ql (U) Negative Normal Negativemg/ dL [facility] UA Auto SS RBC Ql (U) 4-20 graded/HPF Invalid Interpretation Code 0-3graded/H PF [facility] UA Auto SS Specific gravity (U) [Rel density] 1.022 *NA* (01/08/24 1:23 PM) Invalid Interpretation Code 1.005 - 1.030 [facility] UA Auto SS Urobilinogen (U) [Mass/Vol] Negative Normal Negativemg/ dL [facility] UA Auto SS WBC Auto (Urine sed) [#/Area] 0-5 graded/HPF Normal 0-5graded/H PF [facility] UA Auto SS URINALYSISOrdered By: Luciana Peña on 01-08-2024 UA Spec Desc Clean Catch (01/08/24 1:23 PM) Normal [facility] UA Auto SS eGFRon 01-08-2024 eGFR 97 mL/min/1.73 m2 Normal >=59 [facility] Comment on above: Performed By: #### 1 [id number] #### [facility] [address] [place] [address] Laboratory - Microbiology an d Antimicrobial susceptibilityon 12-27-2023 SARS-CoV-2 (COVID-19) RNA ESTHER+probe Ql (Unsp spec) Negative Negative [facility] Healthcare No Panel Informationon 12-26 Interpretation and review of laboratory results Normal [facility] Healthcare [facility] Healthcare Laboratory - Chemistry and C hemistry - challengeon 12-26-2023 Bilirubin Ql (U) Negative [facility] Glucose (U) [Mass/Vol] [facility] Ketones Ql (U) trace [facility] pH (U) 6.0 [pH] [facility] Specific gravity (U) [Rel density] 1.030 [facility] Urobilinogen (U) [Mass/Vol] 0.2 mg/dL [facility] Laboratory - Urinalysison Leukocyte esterase Test strip Ql (U) small [facility] Nitrite Ql (U) Negative [facility] Protein Ql (U) trace [facility] No Panel Informationon 12-25 Urine Occult Blood moderate [facility] Urine Cultureon 12-26-2023 Bacteria identified Cx Nom (U) Urine Culture Results <10,000 colonies/ml Mixed Bacterial Skin Contaminants 2 Days PERFORMED BY: [place] [address] PATHOLOGIST WATCH REPAIR TECHNICIAN TONEY ATKINS M.D. Normal [facility] Comment on above: Performed By: #### C UU #### [facility] [address] Urine cultureOrdered By: Lala Benson on 12-26-2023 Bacteria identified Cx Nom (U) Urine culture [facility] HCG ( test) IA.rapi d Ql (U)Ordered By: Jorden Ramos on 09-29-2022 HCG ( test) Ql (U) Negative [facility] XR Wrist Complete Right*on 0 03-15-2021 XR Wrist Complete Right* CLINICAL HISTORY: Wrist swelling. Pain. COMPARISON: None available TECHNIQUE: AP, lateral, oblique, and scaphoid views of the wrist. FINDINGS: No acute fracture. Radiocarpal and carpal alignment is within normal limits. Soft tissues are within normal limits. IMPRESSION: No acute osseous abnormality. Report reported and signed by Matt Awad on 03/15/2021 1611 Normal [facility] Specialist Vital Signs Date Time Vital Sign Value Performing Clinician Facility 05-06-2024 14:12-0400 Body mass index (BMI) [Ratio] 39.82 kg/m2 Omaira Saucedo MD Work Phone: [facility] 05-06-2024 14:12-0400 Body weight 105.23 kg Omaira Saucedo MD Work Phone: [facility] 05-06-2024 14:12-0400 Diastolic blood pressure 78 mm[Hg] Omaira Saucedo MD Work Phone: [facility] 05-06-2024 14:12-0400 Systolic blood pressure 120 mm[Hg] Omaira Saucedo MD Work Phone: [facility] 04-29-2024 15:08-0400 Body height 165.1 cm Juana Kuns DO Work Phone: [facility] 04-29-2024 15:08-0400 Body mass index (BMI) [Ratio] 39.2 kg/m2 Juana Kuns DO Work Phone: [facility] 04-29-2024 15:08-0400 Body weight 107.04 kg Juana Kuns DO Work Phone: [facility] 04-29-2024 15:08-0400 Diastolic blood pressure 84 mm[Hg] Juana Kuns DO Work Phone: [facility] 04-29-2024 15:08-0400 Heart rate 72 /min Juana Kuns DO Work Phone: [facility] 04-29-2024 15:08-0400 Respiratory rate 18 /min Juana Kuns DO Work Phone: [facility] 04-29-2024 15:08-0400 SaO2% (BldA) [Mass fraction] 97 % Juana Kuns DO Work Phone: [facility] 04-29-2024 15:08-0400 Systolic blood pressure 118 mm[Hg] Juana Kuns DO Work Phone: [facility] 04-27-2024 14:05-0400 Heart rate 76 /min Fabiano Esteban [facility] 04-27-2024 14:05-0400 Diastolic blood pressure 77 mm[Hg] Fabiano Esteban [facility] 04-27-2024 14:05-0400 Respiratory rate 18 /min Fabiano Esteban [facility] 04-27-2024 14:05-0400 SaO2% (BldA) [Mass fraction] 99 % Fabiano Esteban [facility] 04-27-2024 14:05-0400 Systolic blood pressure 124 mm[Hg] Fabiano Esteban [facility] 04-27-2024 13:30-0400 SaO2% (BldA) [Mass fraction] 98 % Fabiano Esteban [facility] 04-27-2024 13:30-0400 Heart rate 78 /min Fabiano Esteban [facility] 04-27-2024 13:30-0400 Respiratory rate 18 /min Fabiano Esteban [facility] 04-27-2024 13:00-0400 Heart rate 71 /min Fabiano Esteban [facility] 04-27-2024 13:00-0400 SaO2% (BldA) [Mass fraction] 100 % Fabiano Esteban [facility] 04-27-2024 12:24-0400 Diastolic blood pressure 83 mm[Hg] Fabiano Esteban [facility] 04-27-2024 12:24-0400 Systolic blood pressure 130 mm[Hg] Fabiano Orellana [facility] 04-27-2024 11:26-0400 Body temperature 98.24 [degF] Fabiano Orellana [facility] 04-27-2024 11:26-0400 Diastolic blood pressure 87 mm[Hg] Fabiano Orellana [facility] 04-27-2024 11:26-0400 Heart rate 76 /min Fabiano Orellana [facility] 04-27-2024 11:26-0400 Systolic blood pressure 143 mm[Hg] Fabiano Orellana [facility] 04-03-2024 14:12-0500 Body height 165.1 cm Juana Kuns DO Work Phone: [facility] 04-03-2024 14:12-0500 Body mass index (BMI) [Ratio] 39.4 kg/m2 Juana Kuns DO Work Phone: [facility] 04-03-2024 14:12-0500 Body weight 107.5 kg Juana Kuns DO Work Phone: [facility] 04-03-2024 14:12-0500 Diastolic blood pressure 65 mm[Hg] Juana Kuns DO Work Phone: [facility] 04-03-2024 14:12-0500 Heart rate 83 /min Juana Kuns DO Work Phone: [facility] 04-03-2024 14:12-0500 Respiratory rate 18 /min Juana Kuns DO Work Phone: [facility] 04-03-2024 14:12-0500 SaO2% (BldA) [Mass fraction] 96 % Juana Kuns DO Work Phone: [facility] 04-03-2024 14:12-0500 Systolic blood pressure 115 mm[Hg] Juana Kuns DO Work Phone: [facility] 03-04-2024 14:25-0500 Body height 165.1 cm Juana Kuns DO Work Phone: [facility] 03-04-2024 14:25-0500 Body mass index (BMI) [Ratio] 39.4 kg/m2 Juana Kuns DO Work Phone: [facility] 03-04-2024 14:25-0500 Body weight 107.5 kg Juana Kuns DO Work Phone: [facility] 03-04-2024 14:25-0500 Diastolic blood pressure 80 mm[Hg] Juana Kuns DO Work Phone: [facility] 03-04-2024 14:25-0500 Heart rate 78 /min Juana Kuns DO Work Phone: [facility] 03-04-2024 14:25-0500 Respiratory rate 18 /min Juana Kuns DO Work Phone: [facility] 03-04-2024 14:25-0500 SaO2% (BldA) [Mass fraction] 97 % Juana Kuns DO Work Phone: [facility] 03-04-2024 14:25-0500 Systolic blood pressure 118 mm[Hg] Juana Kuns DO Work Phone: [facility] 02-05-2024 12:19-0500 Diastolic blood pressure 91 mm[Hg] SHANTA MIKE [facility] 02-05-2024 12:19-0500 Mean blood pressure 103 mm[Hg] SHANTA MIKE [facility] 02-05-2024 12:19-0500 Systolic blood pressure 126 mm[Hg] SHANTA MIKE [facility] 02-05-2024 12:08-0500 Blood Pressure Location SHANTA MIKE [facility] 02-05-2024 12:08-0500 Body temperature 98.6 [degF] SHANTA MIKE [facility] 02-05-2024 12:08-0500 Diastolic blood pressure 98 mm[Hg] SHANTA MIKE [facility] 02-05-2024 12:08-0500 Heart rate 73 /min SHANTA MIKE [facility] 02-05-2024 12:08-0500 Systolic blood pressure 144 mm[Hg] SHANTA MIKE [facility] 01-22-2024 11:11-0500 Blood Pressure Location SHANTA MIKE [facility] 01-22-2024 11:11-0500 Body temperature 98.6 [degF] SHANTA MIKE [facility] 01-22-2024 11:11-0500 Diastolic blood pressure 86 mm[Hg] SHANTA MIKE [facility] 01-22-2024 11:11-0500 Heart rate 84 /min SHANTA MIKE [facility] 01-22-2024 11:11-0500 Respiratory rate 18 /min SHANTA MIKE [facility] 01-22-2024 11:11-0500 Systolic blood pressure 128 mm[Hg] SHANTA MCKEON [facility] 01-08-2024 12:07-0500 Body temperature 97.7 [degF] Julius Maria [facility] 01-08-2024 12:07-0500 Diastolic blood pressure 87 mm[Hg] Julius Maria [facility] 01-08-2024 12:07-0500 Heart rate 71 /min Julius Maria [facility] 01-08-2024 12:07-0500 Respiratory rate 20 /min Julius Maria [facility] 01-08-2024 12:07-0500 SaO2% (BldA) [Mass fraction] 100 % Julius Maria [facility] 01-08-2024 12:07-0500 Systolic blood pressure 147 mm[Hg] Julius Maria [facility] 12-27-2023 11:15-0500 Body mass index (BMI) [Ratio] 41.2 kg/m2 Ashley Waddellok BUTTON MACHINE OPERATOR Work Phone: [facility] 12-27-2023 11:15-0500 Body temperature 98.4 [degF] Ashleychelo ZhuTifton BUTTON MACHINE OPERATOR Work Phone: [facility] 12-27-2023 11:15-0500 Body weight 108.86 kg Ashleychelo ZhuTifton BUTTON MACHINE OPERATOR Work Phone: [facility] 12-27-2023 11:15-0500 Diastolic blood pressure 80 mm[Hg] Ashleychelo ZhuTifton BUTTON MACHINE OPERATOR Work Phone: [facility] 12-27-2023 11:15-0500 Heart rate 96 /min Ashley Tifton BUTTON MACHINE OPERATOR Work Phone: [facility] 12-27-2023 11:15-0500 SaO2% (BldA) [Mass fraction] 99 % Ashley Lockett BUTTON MACHINE OPERATOR Work Phone: [facility] 12-27-2023 11:15-0500 Systolic blood pressure 122 mm[Hg] Ashley Lockett BUTTON MACHINE OPERATOR Work Phone: [facility] 11-21-2023 16:00-0400 Body mass index (BMI) [Ratio] 41.02 kg/m2 Aroldo Andino DO Work Phone: [facility] 11-21-2023 16:00-0400 Body temperature 96.8 [degF] Aroldo Andino DO Work Phone: [facility] 11-21-2023 16:00-0400 Body weight 108.41 kg Aroldo Andino DO Work Phone: [facility] 11-21-2023 16:00-0400 Diastolic blood pressure 70 mm[Hg] Aroldo Andino DO Work Phone: [facility] 11-21-2023 16:00-0400 Heart rate 67 /min Aroldo Andino DO Work Phone: [facility] 11-21-2023 16:00-0400 SaO2% (BldA) [Mass fraction] 99 % Aroldo Andino DO Work Phone: [facility] 11-21-2023 16:00-0400 Systolic blood pressure 122 mm[Hg] Aroldo Andino DO Work Phone: [facility] 10-17-2023 15:44-0400 Body mass index (BMI) [Ratio] 41.02 kg/m2 Sheree Kendall BUTTON MACHINE OPERATOR Work Phone: [facility] 10-17-2023 15:44-0400 Body temperature 96.8 [degF] Sheree Kendall BUTTON MACHINE OPERATOR Work Phone: [facility] 10-17-2023 15:44-0400 Body weight 108.41 kg Sheree Kendall BUTTON MACHINE OPERATOR Work Phone: [facility] 10-17-2023 15:44-0400 Diastolic blood pressure 82 mm[Hg] Sheree Rosadanis BUTTON MACHINE OPERATOR Work Phone: [facility] 10-17-2023 15:44-0400 Heart rate 81 /min Sheree Kendall BUTTON MACHINE OPERATOR Work Phone: [facility] 10-17-2023 15:44-0400 SaO2% (BldA) [Mass fraction] 98 % Sheree Kendall BUTTON MACHINE OPERATOR Work Phone: [facility] 10-17-2023 15:44-0400 Systolic blood pressure 126 mm[Hg] Sheree Kendall BUTTON MACHINE OPERATOR Work Phone: [facility] 03-20-2023 15:21-0500 Body mass index (BMI) [Ratio] 45.37 kg/m2 Aroldo Andino DO Work Phone: [facility] 03-20-2023 15:21-0500 Body temperature 98.8 [degF] Aroldo Andino DO Work Phone: [facility] 03-20-2023 15:21-0500 Body weight 119.89 kg Aroldo Andino DO Work Phone: [facility] 03-20-2023 15:21-0500 Diastolic blood pressure 70 mm[Hg] Aroldo Andino DO Work Phone: [facility] 03-20-2023 15:21-0500 Heart rate 87 /min Aroldo Andino DO Work Phone: [facility] 03-20-2023 15:21-0500 SaO2% (BldA) [Mass fraction] 99 % Aroldo Andino DO Work Phone: [facility] 03-20-2023 15:21-0500 Systolic blood pressure 120 mm[Hg] Aroldo Andino DO Work Phone: [facility] 11-06-2022 15:20-0400 Body height 165.1 cm Stevo Saini Other [employer] Other 11-06-2022 15:20-0400 Body mass index (BMI) [Ratio] 37.77 kg/m2 Stevo Saini Other [facility] [employer] Other 11-06-2022 15:20-0400 Body weight 102.97 kg Stevo Scovanner Other [employer] Other 11-06-2022 15:20-0400 Diastolic blood pressure 84 mm[Hg] Stevo Scovanner Other [facility] [employer] Other 11-06-2022 15:20-0400 Systolic blood pressure 124 mm[Hg] Stevo Scovanner Other [facility] [employer] Other 09-29-2022 10:50-0400 Diastolic blood pressure 81 mm[Hg] DO Juana Kuns Work Phone: [facility] 09-29-2022 10:50-0400 Heart rate 75 /min DO Juana Kuns Work Phone: [facility] 09-29-2022 10:50-0400 Respiratory rate 18 /min DO Juana Kuns Work Phone: [facility] 09-29-2022 10:50-0400 SaO2% (BldA) [Mass fraction] 98 % DO Juana Kuns Work Phone: [facility] 09-29-2022 10:50-0400 Systolic blood pressure 120 mm[Hg] DO Juana Kuns Work Phone: [facility] 09-29-2022 08:35-0400 Body height 162.56 cm DO Juana Kuns Work Phone: [facility] 09-29-2022 08:35-0400 Body temperature 98.2 [degF] DO Juana Kuns Work Phone: [facility] 09-29-2022 08:35-0400 Body weight 101.43 kg DO Juana Kuns Work Phone: [facility] 08-22-2022 09:30-0400 Body height 165.1 cm Stevo Scovanner Other [employer] Other 08-22-2022 09:30-0400 Body mass index (BMI) [Ratio] 39.93 kg/m2 Stevo Scovanner Other [employer] Other 08-22-2022 09:30-0400 Body weight 108.86 kg Stevo Scovanner Other [employer] Other 08-22-2022 09:30-0400 Diastolic blood pressure 76 mm[Hg] Stevo Scovanner Other [employer] Other 08-22-2022 09:30-0400 Systolic blood pressure 112 mm[Hg] Stevo Scovanner Other [employer] Other 08-12-2021 15:00-0400 Body height 165.1 cm Juanacarilne Benson Other [employer] Other 08-12-2021 15:00-0400 Body mass index (BMI) [Ratio] 39.43 kg/m2 Juanacarline Zamoras Other [employer] Other 08-12-2021 15:00-0400 Body weight 107.5 kg Juana Kuns Other [employer] Other 08-12-2021 15:00-0400 Diastolic blood pressure 70 mm[Hg] Juana Kuns Other [employer] Other 08-12-2021 15:00-0400 Respiratory rate 16 /min Juana Juans Other [employer] Other 08-12-2021 15:00-0400 SaO2% (BldA) [Mass fraction] 97 % Juana Kuns Other [employer] Other 08-12-2021 15:00-0400 Systolic blood pressure 106 mm[Hg] Juana Kuns Other [employer] Other 04-01-2021 13:30-0500 Body height 165.1 cm Juana Kuns Other [employer] Other 04-01-2021 13:30-0500 Body mass index (BMI) [Ratio] 43.59 kg/m2 Juana Kuns Other [employer] Other 04-01-2021 13:30-0500 Body weight 118.84 kg Juana Kuns Other [employer] Other 04-01-2021 13:30-0500 Diastolic blood pressure 80 mm[Hg] Juana Kuns Other [employer] Other 04-01-2021 13:30-0500 Respiratory rate 18 /min Juana Kuns Other [employer] Other 04-01-2021 13:30-0500 SaO2% (BldA) [Mass fraction] 97 % Juana Kuns Other [employer] Other 04-01-2021 13:30-0500 Systolic blood pressure 125 mm[Hg] Juana Kuns Other [employer] Other 03-04-2021 13:30-0500 Body height 165.1 cm Juana Kuns Other [employer] Other 03-04-2021 13:30-0500 Body mass index (BMI) [Ratio] 43.93 kg/m2 Juana Kuns Other [employer] Other 03-04-2021 13:30-0500 Body weight 119.75 kg Juana Kuns Other [employer] Other 03-04-2021 13:30-0500 Diastolic blood pressure 78 mm[Hg] Juana Kuns Other [employer] Other 03-04-2021 13:30-0500 Respiratory rate 18 /min Juana Juans Other [employer] Other 03-04-2021 13:30-0500 SaO2% (BldA) [Mass fraction] 98 % Juana Juans Other [employer] Other 03-04-2021 13:30-0500 Systolic blood pressure 124 mm[Hg] Juana Juans Other [employer] Other Encounters Encounter Date Encounter Type Care Provider Facility Start: 05-22-2024 ambulatory López Flores ty:CD:[id number] Start: 05-09-2024 End: 05-09-2024 ambulatory BRITTNEY MCKEON Facility:[facility] Start: 05-07-2024 End: 05-07-2024 Patient encounter procedure Juana Kuns DO Work Phone: [facility] [address] Work Phone: Start: 05-07-2024 End: 05-07-2024 ambulatory Ujana Kuns DO Work Phone: [facility] Work Phone: Start: 05-06-2024 End: 05-06-2024 Initial preventive medicine new pt age 18-39yrs Omaira Saucedo MD Work Phone: [facility] Comment on above: Encounter for gyneco logical examination without abnormal finding (Primary Dx); Encounter for screening for cervical cancer; Abdominal pain, unspecified abdominal location; Pelvic pain in female; Hirsutism; Irregular menses; Menorrhagia with irregular cycle Start: 05-06-2024 End: 05-06-2024 Patient encounter status Omaira Saucedo MD Work Phone: [facility] Work Phone: Start: 05-06-2024 End: 05-06-2024 ambulatory OMAIRA SAUCEDO Not Available Start: 04-29-2024 End: 04-29-2024 ambulatory Juana Kuns DO Work Phone: [facility] Work Phone: Start: 04-29-2024 End: 04-29-2024 Patient encounter procedure Juana Kuns DO Work Phone: [facility] [place] Work Phone: Start: 04-27-2024 End: 04-27-2024 Emergency department patient visit Fabiano Orellana [facility] Start: 04-08-2024 End: 04-08-2024 Patient encounter procedure Juana Kuns DO Work Phone: [facility] Start: 04-08-2024 End: 04-08-2024 ambulatory Juana Kuns DO Work Phone: [facility] Work Phone: Start: 04-07-2024 End: 04-07-2024 Patient encounter procedure Juana Kuns DO Work Phone: [facility] [place] Work Phone: Start: 04-07-2024 End: 04-07-2024 Hollis Lay BUTTON MACHINE OPERATOR Work Phone: [phone] Comment on above: Intractable migraine without aura and with status migrainosus (CMS/HCC); History of seizure disorder Start: 04-03-2024 End: 04-03-2024 ambulatory Juana Kuns DO Work Phone: [facility] Work Phone: Start: 04-03-2024 End: 04-03-2024 Patient encounter procedure Juana Kuns DO Work Phone: [facility] [place] Work Phone: Start: 03-31-2024 End: 03-31-2024 ambulatory Juana Kuns DO Work Phone: [facility] Work Phone: Start: 03-31-2024 End: 03-31-2024 Discharged Recurring Juana Kuns DO Work Phone: [facility] [place] Work Phone: Start: 03-31-2024 Registered Recurring Juana Juan s DO Work Phone: [facility] [place] Work Phone: Start: 03-21-2024 End: 03-21-2024 Patient encounter procedure Juana Kuns DO Work Phone: [facility] Work Phone: Start: 03-21-2024 End: 03-21-2024 ambulatory Juana Kuns DO Work Phone: [facility] Work Phone: Start: 03-17-2024 Registered Recurring Juana Juan s DO Work Phone: [facility] [place] Work Phone: Start: 03-10-2024 End: 03-10-2024 Hollis Lay BUTTON MACHINE OPERATOR Work Phone: [facility] Comment on above: Intractable migraine without aura and with status migrainosus (CMS/HCC); History of seizure disorder Start: 03-04-2024 End: 03-04-2024 Patient encounter procedure Juanacarline Zamorasaar DO Work Phone: [facility] [place] Work Phone: Start: 02-08-2024 End: 02-08-2024 ambulatory SHANTA E MIKE Facility[facility] Start: 02-08-2024 End: 02-08-2024 Patient encounter procedure SHANTA E MIKE [facility] Start: 02-05-2024 End: 02-05-2024 ambulatory SHANTA E MIKE Facility:[facility] Start: 02-05-2024 End: 02-05-2024 Patient encounter procedure SHANTA E MIKE [facility] Start: 01-22-2024 End: 01-22-2024 ambulatory SHANTA E MIKE Facility:[facility] Start: 01-22-2024 End: 01-22-2024 Patient encounter procedure SHANTA E MIKE [facility] Start: 01-10-2024 ambulatory SHANTA MIKE Facility :[facility] Start: 01-08-2024 End: 01-08-2024 Emergency department patient visit Julius Maria [facility] Start: 12-27-2023 End: 12-27-2023 ambulatory ASHLEY LOCKETT Not Available Start: 12-27-2023 End: 12-27-2023 Office outpatient visit 25 minutes Ashley Lockett BUTTON MACHINE OPERATOR Work Phone: [facility] Comment on above: Close exposure to CO VID-19 virus (Primary Dx); Viral upper respiratory infection Start: 12-26-2023 End: 12-26-2023 Departed Referred Juana Benson DO Work Phone: [facility] [place] Work Phone: Start: 12-26-2023 End: 12-26-2023 ambulatory Juana Benson [facility] Work Phone: Start: 12-26-2023 End: 12-26-2023 Patient encounter procedure [facility] [place] Work Phone: Start: 11-21-2023 End: 11-21-2023 Office outpatient visit 15 minutes Aroldo Andino DO Work Phone: [facility] Comment on above: Strain of right shou lder, initial encounter Start: 11-21-2023 End: 11-21-2023 Office outpatient visit 25 minutes Jr. Philip Noyola DO Work Phone: [facility] Comment on above: Strain of right shou lder, initial encounter (Primary Dx) Start: 11-21-2023 End: 11-21-2023 ambulatory AROLDO ANDINO Not Available Start: 11-21-2023 End: 11-21-2023 Bamboo flowsheet Jr. Philip Dickerson Stepanic DO Work Phone: [facility] Start: 11-21-2023 End: 11-21-2023 Bamboo flowsheet JrJorge Luis Dickerson Stepanic DO Work Phone: [facility] Start: 10-17-2023 End: 10-17-2023 Office outpatient visit 15 minutes Sheree Kendall BUTTON MACHINE OPERATOR Work Phone: [facility] Comment on above: Strain of right shou lder, initial encounter (Primary Dx) Start: 10-17-2023 End: 10-17-2023 ambulatory SHEREE KENDALL Not Available Start: 10-05-2023 End: 10-05-2023 Office outpatient visit 25 minutes Philip Tuan Jazmín DO Work Phone: [facility] Comment on above: Strain of right shou lder, initial encounter (Primary Dx) Start: 10-05-2023 End: 10-05-2023 ambulatory , PHILIP Dickerson JAZMÍN Not Available Start: 09-03-2023 End: 09-03-2023 ambulatory TRACY LAY Not Available Start: 06-05-2023 End: 06-05-2023 ambulatory AROLDO ANDINO Not Available Start: 05-31-2023 End: 05-31-2023 ambulatory TRACY LAY Not Available Start: 03-20-2023 End: 03-20-2023 Office outpatient visit 15 minutes Aroldo Andino DO Work Phone: [facility] Comment on above: Strain of right shou lder, initial encounter (Primary Dx) Start: 03-20-2023 Refill Tracy Lay BUTTON MACHINE OPERATOR Work Phone: [facility] Comment on above: Intractable migraine without aura and with status migrainosus (CMS/HCC) (Primary Dx); History of seizure disorder Start: 11-15-2022 End: 11-15-2022 ambulatory Stevo Saini Other [employer] Other Start: 11-15-2022 Telephone encounter Stevo Quinonez [facility] Start: 11-06-2022 End: 11-06-2022 ambulatory Stevo Saini Other [employer] Other Start: 11-06-2022 Office outpatient vi sit 15 minutes Stevo Saini [facility] Start: 10-02-2022 End: 10-02-2022 ambulatory Stevo Saini Other [employer] Other Start: 10-02-2022 Telephone encounter Stevo Quinonez [facility] Start: 09-29-2022 End: 09-29-2022 Admission to same day surgery center DO Juana Benson Work Phone: [facility] Work Phone: Start: 09-29-2022 End: 09-29-2022 ambulatory DO Juanacarline Benson Work Phone: [facility] Work Phone: Start: 08-22-2022 End: 08-22-2022 ambulatory Stevo Saini Other [employer] Other Start: 08-22-2022 Office outpatient ne w 30 minutes Stevo Saini [facility] Start: 08-16-2022 End: 08-16-2022 ambulatory Juana Juansara Other [employer] Other Start: 08-16-2022 Telephone encounter Juana Benson [facility] Start: 05-11-2022 End: 05-11-2022 ambulatory Juana Benson Other [employer] Other Start: 05-11-2022 Telephone encounter Juana Benson [facility] [place] Start: 09-08-2021 End: 09-08-2021 ambulatory Amanda Garza Other [employer] Other Start: 09-08-2021 Telephone encounter Amanda Garza [facility] [employer] Start: 09-07-2021 End: 09-07-2021 ambulatory Amanda Garza Other [employer] Other Start: 09-07-2021 Office outpatient ne w 45 minutes Amanda Garza [facility] Start: 08-12-2021 End: 08-12-2021 ambulatory Juana Benson Other [employer] Other Start: 08-12-2021 Encounter for genera l adult medical examination without abnormal findings Juana Benson [facility] [place] Start: 08-12-2021 Office outpatient vi sit 25 minutes Juana Juans [facility] Start: 04-01-2021 End: 04-01-2021 ambulatory Juanacarline Benson Other [employer] Other Start: 04-01-2021 Office outpatient vi sit 15 minutes Juana Juans [facility] Start: 03-04-2021 End: 03-04-2021 ambulatory Juana Asia Other [employer] Other Start: 03-04-2021 Office outpatient vi sit 15 minutes Juana Juans [facility] Procedures Date Procedure Procedure Detail Performing Clinician Start: 05-07-2024 Supine abdominal X-ray Juanacarline Benson DO Work Phone: Start: 04-08-2024 X-ray of lumbar spin e, four or more views Juanacarline Benson DO Work Phone: Start: 03-21-2024 Bilateral mammography B rett Asia DO Work Phone: Start: 03-21-2024 Ultrasonography of r ight breast Juanacarline Benson DO Work Phone: Start: 12-27-2023 Sars-cov-2 detection by dna/rna Aroldo Andino DO Work Phone: Start: 12-26-2023 Urine culture Juanacarline Zamora s DO Work Phone: Start: 09-29-2022 Colonoscopy DO Juana K uns Work Phone: Start: 06-21-2017 Arthroscopy of knee Dada Maria Comment on above: RIGHT eye surgery after po ked with pencil Julius Maria Plan of Treatment Date Care Activity Detail Author Start: 10-06-2024 Influenza vaccination Influenz a Vaccine (Season Ended) [facility] Start: 06-30-2024 Screening for malignant neoplasm of cervix [facility] Start: 04-07-2024 Rheumatoid factor [Units/volume] in Serum or Plasma [facility] Start: 04-07-2024 [facility] Start: 04-03-2024 Patient referral [facility] Work Phone: Start: 12-26-2023 Urine culture [facility] Start: 12-26-2023 Bacteria identified in Urine by Culture Urine Culture [facility] Start: 12-19-2023 End: 12-19-2023 Patient encounter procedure 12/19/2023 3:30 PM EST Office Visit [facility] [address] [place] [id number] [facility] Start: 11-21-2023 End: 11-21-2023 Patient encounter procedure 11/21/2023 5:15 PM EDT Office Visit [facility] [address] [place] [address] [facility] Start: 11-21-2023 End: 11-21-2023 Patient encounter procedure 11/21/2023 2:45 PM EDT Office Visit [facility] [address] [place] [phone] Jr. Philip Noyola, DO [address] [place] [address] Arrived [facility] Comment on above: Arrived Start: 11-07-2023 End: 11-07-2023 Patient encounter procedure 11/07/2023 2:30 PM EDT Office Visit [facility] [address] [place] [phone] Jr. Philip Noyola, DO [address] [place] [address] [facility] Start: 10-07-2023 Influenza vaccination Influenza Vacc ine (#1) [facility] Start: 05-02-2023 End: 05-02-2023 Patient encounter procedure 05/02/2023 4:00 PM EDT Office Visit [facility] [address] [place] [address] Tracy Lay, BUTTON MACHINE OPERATOR [address] [facility] [address] [id number] [employer] [facility] Start: 04-17-2023 End: 04-17-2023 Patient encounter procedure 04/17/2023 3:30 PM EDT Office Visit [facility] [address] [facility] [address] [place] [address] [facility] Start: 10-06-2022 Influenza vaccination Influenza Vacc ine (#1) [facility] Start: 09-29-2022 [facility] Start: 10-30-2007 Screening for malignant neoplasm of cervix Pap Smear [facility] Homogenous nuclear A b pattern [Titer] in Serum [facility] IGP, APT HPV,RFX 16/18,45 IGP, APT HPV,RFX 16/18,45 Lab Routine Encounter for gynecological examination without abnormal finding Encounter for screening for cervical cancer Ordered: 05/06/2024 [facility] Work Phone: Comment on above: Ordered: 05/06/2024 MG Breast - bilatera l Diagnostic [facility] Nuclear Ab [Titer] i n Serum [facility] Patient Education Hemorrhoids (D C) Colon Polypectomy (DC) [facility] Work Phone: Patient referral [facility] Work Phone: Rheumatoid factor [Units/volume] in Serum or Plasma [facility] US Breast - right limited [facility] XR Lumbar spine GE 4 Views [facility] Immunizations Immunization Date Immunization Notes Care Provider Fa cility 07-06-2020 COVID-19 Vaccine Pfizer - Documentation Purposes Only Juana Benson Other [facility] 06-11-2020 COVID-19 Vaccine Pfizer - Documentation Purposes Only Juana Benson Other [facility] 12-06-2017 influenza, seasonal, injectable Juanacarline Benson Other [employer] Other 12-06-2017 influenza virus vaccine, unspecified formulation Tracy Lay BUTTON MACHINE OPERATOR Work Phone: [facility] 11-28-2016 influenza virus vaccine, unspecified formulation SHANTA MCKEON [facility] 11-28-2016 influenza, injectabl e, quadrivalent, preservative free Jr. Stepanic DO Work Phone: [facility] 11-17-2015 influenza virus vaccine, unspecified formulation SHANTA MCKEON [facility] 11-17-2015 influenza, injectabl e, quadrivalent, preservative free Jr. Stepanic DO Work Phone: [facility] 11-14-2011 tetanus toxoid, reduced diphtheria toxoid, and acellular pertussis vaccine, adsorbed Juana [employer] Other [employer] Other 10-05-1999 hepatitis B vaccine, pediatric or pediatric/adolescent dosage Juana [employer] Other [employer] Other 10-05-1999 measles, mumps and rubella virus vaccine Juana [employer] Other [employer] Other 12-12-1990 diphtheria, tetanus toxoids and pertussis vaccine Juana Causatas Other [employer] Other 12-12-1990 haemophilus influenz ae type b vaccine, conjugate unspecified formulation Juana [employer] Other [employer] Other 12-12-1990 Hib, unspecified formulation SHANTA MCKEON [facility] 12-12-1990 trivalent poliovirus vaccine, live, oral Juana Kuns Other [employer] Other 01-17-1989 diphtheria, tetanus toxoids and pertussis vaccine Juana Kuns Other [employer] Other 01-17-1989 measles, mumps and rubella virus vaccine Juana Kuns Other [employer] Other 01-17-1989 trivalent poliovirus vaccine, live, oral Juana Kuns Other [employer] Other 07-23-1987 diphtheria, tetanus toxoids and pertussis vaccine Juana Kuns Other [employer] Other 04-28-1987 diphtheria, tetanus toxoids and pertussis vaccine Juana Kuns Other [employer] Other 04-28-1987 trivalent poliovirus vaccine, live, oral Juana Kuns Other [employer] Other 02-12-1987 diphtheria, tetanus toxoids and pertussis vaccine Juana Kuns Other [employer] Other 02-12-1987 trivalent poliovirus vaccine, live, oral Juana Kuns Other [employer] Other Payers Date Payer Category Payer Unknown 2023 Self-pay [id number] 2022 Unknown [id number] 2022 Worker's Compensation 1.2.84 [id number] 2022 Unknown [id number] 2022 Private Health Insurance [employer] [id number] .[id number] 2022 Unknown [id number]. 1.13.693.2 .7.3.592105.315 2022 Unknown [id number] 2.16.840.1.266998.19 1986 Unknown [id number] 2.16.840.1.282080.3.579.2 .72 1986 Unknown [id number] 2.16.840.1.307674.3.579.2 .727 1986 Unknown [id number] 2.16.840.1.563873.3.579.2 .1258 1986 Unknown [id number] 2.16.840.1.387532.3.579.2 .1258 1986 Unknown [id number] 2.16.840.1.561144.3.579.2 .1258 1986 Unknown [id number] 2.16.840.1.037967.3.579.2 .1258 1986 Unknown [id number] 2.16.840.1.687611.3.579.2 .1258 1986 Unknown [id number] 2.16.840.1.741904.3.579.2 .1258 1986 Unknown [id number] 2.16.840.1.577197.3.579.2 .1258 1986 Unknown [id number] 2.16.840.1.384005.3.579.2 .1258 1986 Unknown [id number] 2.16.840.1.219000.3.579.2 .1258 1986 Unknown [id number] 2.16.840.1.922557.3.579.2 .1258 1986 Unknown [id number] 2.16.840.1.851429.3.579.2 .1258 1986 Unknown [id number] 2.16.840.1.488888.3.579.2 .1258 1986 Unknown [id number] 2.16840.1.054683.3.579.2 .1258 1986 Unknown [id number] 2.16840.1.939500.3.579.2 .1258 1986 Unknown [id number] 2.840.1.443207.3.579.2 .1258 1986 Unknown [id number] 2.16840.1.473470.3.579.2 .1258 1986 Unknown [id number] 2.16840.1.606251.3.579.2 .1258 1986 Unknown [id number] 2.16840.1.393282.3.579.2 .1258 1986 Unknown [id number] 2.840.1.511922.3.579.2 .1986 Unknown [id number] 2.16840.1.085017.3.579.2 .1986 Unknown [id number] 2.16840.1.303407.3.579.2 .1986 Unknown [id number] 2.16840.1.015449.3.579.2 .1986 Unknown [id number] 2.16840.1.474214.3.579.2 .1986 Unknown [id number] 2.16.840.1.408979.3.579.2 .727 1986 Unknown [id number] 2.16.840.1.462596.3.579.2 .727 Unknown Sandhya BC/BS [id number] Unknown [id number] 2.16.840.1.834330.3.579.2 .531 Unknown [id number] 2.16.840.1.323199.3.579.2 .531 Unknown [id number] 2.16.840.1.445484.3.579.2 .531 Unknown [id number] 2.16.840.1.895633.3.579.2 .531 Unknown [id number] 2.16.840.1.014317.3.579.2 .531 Unknown [id number] 2.16.840.1.678922.3.579.2 .531 Worker's Compensation [id number] Social History Date Type Detail Facility Unknown if ever smoked [employer] Other Start: 03-20-2023 End: 12-27-2023 Sex Assigned At [facility] Start: 07-12-2022 End: 09-29-2022 [facility] Never smoked tobacco (finding) [facility] Start: 1985 Sex Assigned At Female F [facility] Start: 07-12-2022 Tobacco use and exposure Smokeless tobacco non-user [facility] Start: 03-20-2023 End: 05-10-2024 Alcohol intake Ex-drinker (finding) [facility] Start: 03-20-2023 End: 12-27-2023 History of Social function [facility] Start: 06-16-2022 Alcohol Comment Caffeine intak e: 1-2 cups per day pop [facility] Start: 1985 Sex Assigned At Not on file [facility] Start: 12-26-2023 End: 05-08-2024 Sex Female (finding) [facility] Tobacco smoking status Never [facility] Sexual Orientation [facility] Goals Date Patient Goal Desired Activity /State Functional Status Date Assessment Result Facility 04-27-2024 Functional Status N/A [facility] 02-05-2024 Functional Status N/A [facility] 01-22-2024 Functional Status N/A [facility] 01-08-2024 Functional Status N/A [facility] Clinical Notes 08-05-2011 to 05-09-2024 Omaira Saucedo MD - 05/06/2024 2:00 PM EDT Note Date & Type Note Facility 05-09-2024 Note Patient Education Gastroenterology Abdominal Pain, Adult Pain in the abdomen (abdominal pain) can be caused by many things. In most cases, it gets better with no treatment or by being treated at home. But in some cases, it can be serious. Your health care provider will ask questions about your medical history and do a physical exam to try to figure out what is causing your pain. Follow these instructions at home: Medicines ??? Take usmj-daj-dgjvvfo and prescription medicines only as told by your provider. ??? Do not take medicines that help you poop (laxatives) unless told by your provider. General instructions ??? Watch your condition for any changes. ??? Drink enough fluid to keep your pee (urine) pale yellow. Contact a health care provider if: ??? Your pain changes, gets worse, or lasts longer than expected. ??? You have severe cramping or bloating in your abdomen, or you vomit. ??? Your pain gets worse with meals, after eating, or with certain foods. ??? You are constipated or have diarrhea for more than 2?3 days. ??? You are not hungry, or you lose weight without trying. ??? You have signs of dehydration. These may include: ? Dark pee, very little pee, or no pee. ? Cracked lips or dry mouth. ? Sleepiness or weakness. ??? You have pain when you pee (urinate) or poop. ??? Your abdominal pain wakes you up at night. ??? You have blood in your pee. ??? You have a fever. Get help right away if: ??? You cannot stop vomiting. ??? Your pain is only in one part of the abdomen. Pain on the right side could be caused by appendicitis. ??? You have bloody or black poop (stool), or poop that looks like tar. ??? You have trouble breathing. ??? You have chest pain. These symptoms may be an emergency. Get help right away. Call 911. ??? Do not wait to see if the symptoms will go away. ??? Do not drive yourself to the hospital. This information is not intended to replace advice given to you by your health care provider. Make sure you discuss any questions you have with your health care provider. Document Revised: 11/08/2022 Document Reviewed: 11/08/2022 Architectural Daily Patient Education ? 2023 [employer]. Orthopedics Flank Pain, Adult Flank pain is pain that is located on the side of the body between the upper abdomen and the spine. This area is called the flank. The pain may occur over a short period of time (acute), or it may be long-term or recurring (chronic). It may be mild or severe. Flank pain can be caused by many things, including: ??? Muscle soreness or injury. ??? Kidney infection, kidney stones, or kidney disease. ??? Stress. ??? A disease of the spine (vertebral disk disease). ??? A lung infection (pneumonia). ??? Fluid around the lungs (pulmonary edema). ??? A skin rash caused by the chickenpox virus (shingles). ??? Tumors that affect the back of the abdomen. ??? Gallbladder disease. Follow these instructions at home: ??? Drink enough fluid to keep your urine pale yellow. ??? Rest as told by your health care provider. ??? Take mxzb-lqn-vukpbpn and prescription medicines only as told by your health care provider. ??? Keep a journal to track what has caused your flank pain and what has made it feel better. ??? Keep all follow-up visits. This is important. Contact a health care provider if: ??? Your pain is not controlled with medicine. ??? You have new symptoms. ??? Your pain gets worse. ??? Your symptoms last longer than 2?3 days. ??? You have trouble urinating or you are urinating very frequently. Get help right away if: ??? You have trouble breathing or you are short of breath. ??? Your abdomen hurts or it is swollen or red. ??? You have nausea or vomiting. ??? You feel faint, or you faint. ??? You have blood in your urine. ??? You have flank pain and a fever. These symptoms may represent a serious problem that is an emergency. Do not wait to see if the symptoms will go away. Get medical help right away. Call your local emergency services (911 in the [place] Do not drive yourself to the hospital. Summary ??? Flank pain is pain that is located on the side of the body between the upper abdomen and the spine. ??? The pain may occur over a short period of time (acute), or it may be long-term or recurring (chronic). It may be mild or severe. ??? Flank pain can be caused by many things. ??? Contact your health care provider if your symptoms get worse or last longer than 2?3 days. This information is not intended to replace advice given to you by your health care provider. Make sure you discuss any questions you have with your health care provider. Document Revised: 04/04/2021 Document Reviewed: 04/04/2021 Architectural Daily Patient Education ? 2023 [employer]. [facility] 05-06-2024 History of Present illness Narrative Images from the original note were not included. Omaira Saucedo MD Obstetrics and Gynecology Patient: Iqra Nguyen : 1985 (38 y.o.) Yearly Wellness Exam Date: 05/06/2024 Reason for Visit - Chief Complaint Patient presents with Gynecologic Exam Patient present for yearly. No issues with bowels or urinary. Patient states she found a lump on her Right breast, would like to see if Dr. Saucedo could locate the lump, as she was not able to feel it anymore. Patient states she had a mammogram and her PCP was concerned with the imaging. LMP: 04/13/24 LMP: 04/13/2024 Last Pap: 2022 Menarche age 11-12 Breast lump FHX breat cancer Complaints: New Patient Patient she said she is having right side abdominal pain, sometimes pelvic pain. PCP originally thought it was kidney pain but isn't sure now and would like patient to be seen by us to rule out pelvic issues. Symptoms started about 3 months, started mostly back pain, then side pain and now into side pain too. Patient denies any pain with intercourse. No real pain now. Patient not on any control The patient reports irregular menstrual periods. She mentions not being on oral contraceptives regularly, which may contribute to the irregularity. The patient also indicates possible hormonal imbalances and states that she is not ovulating on a regular basis, as confirmed by a previous chest examination. Additionally, the patient reports experiencing acne, which may be related to hormonal fluctuations. The patient's review of systems includes irregular periods in the reproductive system, s Visit Vitals BP 120/78 (BP Location: Left arm) Wt 232 lb LMP 04/13/2024 BMI 39.82 kg/m OB Status Having periods Smoking Status Never BSA 2.18 m History of Present Illness, Associated Treatments and Results - OB History Para Term AB Living 0 0 0 0 0 0 SAB IAB Ectopic Multiple Live Births 0 0 0 0 0 Review of Systems - Constitutional: Negative. HENT: Negative. Eyes: Negative. Respiratory: Negative. Cardiovascular: Negative. Gastrointestinal: Negative. Endocrine: Negative. Genitourinary: Negative. Musculoskeletal: Negative. Skin: Negative. Allergic/Immunologic: Negative. Neurological: Negative. Hematological: Negative. Psychiatric/Behavioral: Negative. No Known Allergies Current Outpatient Medications: Atogepant (Qulipta) 60 MG tablet, Take 60 mg by mouth Daily, Disp: 30 tablet, Rfl: 11 ciprofloxacin (Cipro) 500 MG tablet, Twice daily, Disp: , Rfl: OXcarbazepine (Trileptal) 600 MG tablet, TAKE 1 TABLET BY MOUTH AT BEDTIME, Disp: 90 tablet, Rfl: 3 SUMAtriptan (Imitrex) 100 MG tablet, 1 tablet at least 2 hours between doses as needed max 2 per day and 2 per week Strength: 100 mg, Disp: 9 tablet, Rfl: 3 Topiramate ER (Trokendi XR) 200 MG capsule sustained-release 24 hr, Take 1 capsule by mouth at bedtime, Disp: 90 capsule, Rfl: 3 Past Medical History: Diagnosis Date Acute headache Chicken pox Cholelithiasis Circadian rhythm sleep disorder Dizziness H/O eye surgery eye surgery for puncture from pencil History of ear, nose, and throat (ENT) surgery repair of nose fx History of migraine headaches Insomnia Migraines (CMS/HCC) Morbid obesity (CMS/HCC) Seizure disorder (CMS/HCC) Past Surgical History: Procedure Laterality Date COLONOSCOPY 2018 EYE SURGERY Right 1990 KNEE ARTHROSCOPY W/ ACL RECONSTRUCTION Right 06/21/2017 SBS 06/21/17 SD LAP,CHOLECYSTECTOMY 11/11/2018 Jacquie (11/11/18) Family History Problem Relation Name Age of Onset Migraines Mother Hypertension Father No Known Problems Sister No Known Problems Brother Stroke Maternal Grandmother Cancer Paternal Grandmother Social History Tobacco Use Smoking Status Never Smokeless Tobacco Never Physical Exam - General appearance, mentation, extraocular movements, facial strength and movement, hearing, upper and lower extremity strength and tone, sensation to gross testing, coordination, and gait are normal or at baseline unless noted below. Physical Exam Constitutional: Appearance: Normal appearance. Genitourinary: Right Labia: No rash or lesions. Left Labia: No lesions or rash. No vaginal discharge or erythema. No vaginal prolapse present. No vaginal atrophy present. Right Adnexa: not tender and no mass present. Left Adnexa: not tender and no mass present. No cervical lesion. Uterus is not tender. Uterus is anteverted. Breasts: Right: Normal. No mass or nipple discharge. Left: Normal. No mass or nipple discharge. HENT: Head: Normocephalic and atraumatic. Cardiovascular: Rate and Rhythm: Regular rhythm. Tachycardia present. Pulmonary: Breath sounds: Normal breath sounds. Abdominal: General: There is no distension. Palpations: Abdomen is soft. There is no mass. Tenderness: There is no abdominal tenderness. Musculoskeletal: General: Normal range of motion. Cervical back: Neck supple. Lymphadenopathy: Cervical: No cervical adenopathy. Neurological: Mental Status: She is alert and oriented to person, place, and time. Skin: General: Skin is warm and dry. Psychiatric: Mood and Affect: Mood normal. hirsuitism Assessment/Plan ICD-10-CM 1. Encounter for gynecological examination without abnormal finding Z01.419 IGP, APT HPV,RFX 16/18,45 2. Encounter for screening for cervical cancer Z12.4 IGP, APT HPV,RFX 16/18,45 3. Abdominal pain, unspecified abdominal location R10.9 4. Pelvic pain in female R10.2 5. Hirsutism L68.0 6. Irregular menses N92.6 7. Menorrhagia with irregular cycle N92.1 1. Irregular Menstrual Cycles: - Patient reports irregular menstrual periods - Possible causes: include potential anovulation - Plan: a) Monitor menstrual cycle regularity b)Iqra was seen today for gynecologic exam. Diagnoses and all orders for this visit: Encounter for gynecological examination without abnormal finding (Primary) - IGP, APT HPV,RFX 16/18,45 Encounter for screening for cervical cancer - IGP, APT HPV,RFX 16/18,45 Abdominal pain, unspecified abdominal location Pelvic pain in female Hirsutism Irregular menses Menorrhagia with irregular cycle Assessment & Plan 1 Irregular menstrual bleeding. The patient reported occasional heavy periods with clotting. She is advised to chart her menstrual cycles, noting any instances of heavy bleeding or clotting. An ultrasound has been recommended to ensure there are no underlying issues. She is instructed to schedule this ultrasound before leaving the clinic. Irregular Menstrual Cycles: - Patient reports irregular menstrual periods - Possible causes: include potential anovulation - Plan: 2 Pap and exam performed. Results can be found in MyChart in 7 days Return 1 year for annual Consider medication to induce ovulation if patient desires in the future c) Educate patient on the importance of consistent oral contraceptive use if prescribed 2. Possible Hormonal Imbalance: - Clinician suspects hormonal imbalance may be contributing to irregular menstrual cycles and potential anovulation - Plan: a) Consider hormonal testing if symptoms persist b) Discuss potential referral to network developer if needed Luteal hormonal bloodwork if pt desires work up 3. Dermatological Concern: - Patient appears to have a dermatological issue, possibly related to hormonal changes including hirsuitism Possible spironoalctone - a) Consider referral to gi tech for evaluation and treatment documented in this encounter [facility] 04-27-2024 Hospital Discharge instructions Patient Education 04/27/2024 14:11:54 Kidney Stones Kidney Stones Kidney stones are solid, rock-like deposits that form inside of the kidneys. The kidneys are a pair of organs that make urine. A kidney stone may form in a kidney and move into other parts of the urinary tract, including the tubes that connect the kidneys to the bladder (ureters), the bladder, and the tube that carries urine out of the body (urethra). As the stone moves through these areas, it can cause intense pain and block the flow of urine. Kidney stones are created when high levels of certain minerals are found in the urine. The stones are usually passed out of the body through urination, but in some cases, medical treatment may be needed to remove them. What are the causes? Kidney stones may be caused by: A condition in which certain glands produce too much parathyroid hormone (primary hyperparathyroidism), which causes too much calcium buildup in the blood. A buildup of uric acid crystals in the bladder (hyperuricosuria). Uric acid is a chemical that the body produces when you eat certain foods. It usually leaves the body in the urine. Narrowing (stricture) of one or both of the ureters. A kidney blockage that is present at (congenital obstruction). Past surgery on the kidney or the ureters. What increases the risk? The following factors may make you more likely to develop this condition: Having had a kidney stone in the past. Having a family history of kidney stones. Not drinking enough water. Eating a diet that is high in protein, salt (sodium), or sugar. Being overweight or obese. What are the signs or symptoms? Symptoms of a kidney stone may include: Pain in the side of the abdomen, right below the ribs (flank pain). Pain usually spreads (radiates) to the groin. Needing to urinate often or urgently. Painful urination. Blood in the urine (hematuria). Nausea. Vomiting. Fever and chills. How is this diagnosed? This condition may be diagnosed based on: Your symptoms and medical history. A physical exam. Blood tests. Urine tests. These may be done before and after the stone passes out of your body through urination. Imaging tests, such as a CT scan, abdominal X-ray, or ultrasound. A procedure to examine the inside of the bladder (cystoscopy). How is this treated? Treatment for kidney stones depends on the size, location, and makeup of the stones. Kidney stones will often pass out of the body through urination. You may need to: Increase your fluid intake to help pass the stone. In some cases, you may be given fluids through an IV and may need to be monitored in the hospital. Take medicine for pain. Make changes in your diet to help prevent kidney stones from coming back. Sometimes, procedures are needed to remove a kidney stone. This may involve: A procedure to break up kidney stones using: ?A focused beam of light (laser therapy). ?Shock waves (extracorporeal shock wave lithotripsy). Surgery to remove kidney stones. This may be needed if you have severe pain or have stones that block your urinary tract. Follow these instructions at home: Medicines Take huex-rxi-axvlvpw and prescription medicines only as told by your health care provider. Ask your health care provider if the medicine prescribed to you requires you to avoid driving or using heavy machinery. Eating and drinking Drink enough fluid to keep your urine pale yellow. You may be instructed to drink at least 8 10 glasses of water each day. This will help you pass the kidney stone. If directed, change your diet. This may include: ?Limiting how much sodium you eat. ?Eating more fruits and vegetables. ?Limiting how much animal protein you eat. Animal proteins include red meat, poultry, fish, and eggs. ?Eating a normal amount of calcium (1,000 1,300 mg per day). Follow instructions from your health care provider about eating or drinking restrictions. General instructions Collect urine samples as told by your health care provider. You may need to collect a urine sample: ?24 hours after you pass the stone. ?8 12 weeks after you pass the kidney stone, and every 6 12 months after that. Strain your urine every time you urinate, for as long as directed. Use the strainer that your health care provider recommends. Do not throw out the kidney stone after passing it. Keep the stone so it can be tested by your health care provider. Testing the makeup of your kidney stone may help prevent you from getting kidney stones in the future. Keep all follow-up visits. You may need follow-up X-rays or ultrasounds to make sure that your stone has passed. How is this prevented? To prevent another kidney stone: Drink enough fluid to keep your urine pale yellow. This is the best way to prevent kidney stones. Eat a healthy diet. Follow recommendations from your health care provider about foods to avoid. Recommendations vary depending on the type of kidney stone that you have. You may be instructed to eat a low-protein diet. Maintain a healthy weight. Where to find more information National Kidney Foundation (NKF): www.kidney.org [employer] (F): www.urologyhealth.org Contact a health care provider if: You have pain that gets worse or does not get better with medicine. Get help right away if: You have a fever or chills. You develop severe pain. You develop new abdominal pain. You faint. You are unable to urinate. Summary Kidney stones are solid, rock-like deposits that form inside of the kidneys. Kidney stones can cause nausea, vomiting, blood in the urine, abdominal pain, and the urge to urinate often. Treatment for kidney stones depends on the size, location, and makeup of the stones. Kidney stones will often pass out of the body through urination. Kidney stones can be prevented by drinking enough fluids, eating a healthy diet, and maintaining a healthy weight. This information is not intended to replace advice given to you by your health care provider. Make sure you discuss any questions you have with your health care provider. Document Revised: 05/03/2022 Document Reviewed: 05/03/2022 Architectural Daily Patient Education 2023 [employer]. Follow Up Care 04/27/2024 11:22:29 With:Kayla Brooks Address:Unknown When:04/30/2024 13:55:27 Comments:Follow-up with urology regarding kidney stone With:JUANA BENSON Address: [address] [place] [phone] Business (1) When:Within 3 Day(s) [facility] 04-27-2024 Note ED Patient Education Note Urology Kidney Stones Kidney stones are solid, rock-like deposits that form inside of the kidneys. The kidneys are a pair of organs that make urine. A kidney stone may form in a kidney and move into other parts of the urinary tract, including the tubes that connect the kidneys to the bladder (ureters), the bladder, and the tube that carries urine out of the body (urethra). As the stone moves through these areas, it can cause intense pain and block the flow of urine. Kidney stones are created when high levels of certain minerals are found in the urine. The stones are usually passed out of the body through urination, but in some cases, medical treatment may be needed to remove them. What are the causes? Kidney stones may be caused by: ??? A condition in which certain glands produce too much parathyroid hormone (primary hyperparathyroidism), which causes too much calcium buildup in the blood. ??? A buildup of uric acid crystals in the bladder (hyperuricosuria). Uric acid is a chemical that the body produces when you eat certain foods. It usually leaves the body in the urine. ??? Narrowing (stricture) of one or both of the ureters. ??? A kidney blockage that is present at (congenital obstruction). ??? Past surgery on the kidney or the ureters. What increases the risk? The following factors may make you more likely to develop this condition: ??? Having had a kidney stone in the past. ??? Having a family history of kidney stones. ??? Not drinking enough water. ??? Eating a diet that is high in protein, salt (sodium), or sugar. ??? Being overweight or obese. What are the signs or symptoms? Symptoms of a kidney stone may include: ??? Pain in the side of the abdomen, right below the ribs (flank pain). Pain usually spreads (radiates) to the groin. ??? Needing to urinate often or urgently. ??? Painful urination. ??? Blood in the urine (hematuria). ??? Nausea. ??? Vomiting. ??? Fever and chills. How is this diagnosed? This condition may be diagnosed based on: ??? Your symptoms and medical history. ??? A physical exam. ??? Blood tests. ??? Urine tests. These may be done before and after the stone passes out of your body through urination. ??? Imaging tests, such as a CT scan, abdominal X-ray, or ultrasound. ??? A procedure to examine the inside of the bladder (cystoscopy). How is this treated? Treatment for kidney stones depends on the size, location, and makeup of the stones. Kidney stones will often pass out of the body through urination. You may need to: ??? Increase your fluid intake to help pass the stone. In some cases, you may be given fluids through an IV and may need to be monitored in the hospital. ??? Take medicine for pain. ??? Make changes in your diet to help prevent kidney stones from coming back. Sometimes, procedures are needed to remove a kidney stone. This may involve: ??? A procedure to break up kidney stones using: ? A focused beam of light (laser therapy). ? Shock waves (extracorporeal shock wave lithotripsy). ??? Surgery to remove kidney stones. This may be needed if you have severe pain or have stones that block your urinary tract. Follow these instructions at home: Medicines ??? Take zqip-dzv-utgjkwe and prescription medicines only as told by your health care provider. ??? Ask your health care provider if the medicine prescribed to you requires you to avoid driving or using heavy machinery. Eating and drinking ??? Drink enough fluid to keep your urine pale yellow. You may be instructed to drink at least 8?10 glasses of water each day. This will help you pass the kidney stone. ??? If directed, change your diet. This may include: ? Limiting how much sodium you eat. ? Eating more fruits and vegetables. ? Limiting how much animal protein you eat. Animal proteins include red meat, poultry, fish, and eggs. ? Eating a normal amount of calcium (1,000?1,300 mg per day). ??? Follow instructions from your health care provider about eating or drinking restrictions. General instructions ??? Collect urine samples as told by your health care provider. You may need to collect a urine sample: ? 24 hours after you pass the stone. ? 8?12 weeks after you pass the kidney stone, and every 6?12 months after that. ??? Strain your urine every time you urinate, for as long as directed. Use the strainer that your health care provider recommends. ??? Do not throw out the kidney stone after passing it. Keep the stone so it can be tested by your health care provider. Testing the makeup of your kidney stone may help prevent you from getting kidney stones in the future. ??? Keep all follow-up visits. You may need follow-up X-rays or ultrasounds to make sure that your stone has passed. How is this prevented? To prevent another kidney stone: ??? Drink enough fluid to keep your urine pale yel (more content not included)... [facility] 04-27-2024 Evaluation + Plan note Extrac douglas from: Title:ED Note Author:Silvia Armando PA-C e:04/27/24 1. Hydroureteronephrosis (N1 3.30: Unspecified hydronephrosis) Kidney stone (N20.0: Calculus of kidney) Ordered: oxycodone, 5 mg = 1 cap(s), Oral, q6hr, PRN for pain, X 3 day(s), # 12 cap(s), Refills(s) 0, Pharmacy: [facility], 162, cm, 04/27/24 11:29:00 EDT, Height/Length Dosing, 104.7, kg, 04/27/24 11:29:00 EDT, Weight Dosing Orders: ketorolac, 30 mg = 1 mL, Injection, IV Push, Once, Stop date 04/27/24 11:47:00 EDT, STAT, Start date 04/27/24 11:47:00 EDT, 04/27/24 11:47:00 EDT morphine, 4 mg = 1 mL, Injection, IV Push, Once, Stop date 04/27/24 13:56:00 EDT, STAT, Start date 04/27/24 13:56:00 EDT, 04/27/24 13:56:00 EDT naproxen, 500 mg = 1 tab(s), Oral, BID, X 7 day(s), # 14 tab(s), Refills(s) 0, [facility], [facility], cm, 04/27/24 11:29:00 EDT, Height/Length Dosing, 104.7, kg, 04/27/24 11:29:00 EDT, Weight Dosing ondansetron, 4 mg = 1 tab(s), Oral, q8hr, PRN Nausea/Vomiting, # 12 tab(s), Refills(s) 0, [facility], [facility], cm, 04/27/24 11:29:00 EDT, Height/Length Dosing, 104.7, kg, 04/27/24 11:29:00 EDT, Weight Dosing ondansetron, 4 mg = 2 mL, Injection, IV Push, Once, Stop date 04/27/24 13:56:00 EDT, STAT, Start date 04/27/24 13:56:00 EDT, 04/27/24 13:56:00 EDT Basic Metabolic Panel Beta hCG Qual CBC w/ Auto Diff CT Abdomen/Pelvis w/ Contrast eGFR Extra Blue Tube Hepatic Function Panel Lipase Level UA with Cult Rflx 8-year-old female presented with right flank pain. In the ER patient is afebrile, vital signs are stable, appears to be in pain but nontoxic-appearing overall. Labs are reviewed and noted, no concerning findings, urinalysis without evidence of infection. CT scan consistent with right hydronephrosis with a tiny ureteral calculus. Patient's pain treated with Toradol and morphine in the ER with improvement. Patient educated on results and supportive care, discharged home with instructions to follow-up with urology and given short course of pain medication as well as Zofran. Patient to return to the ER with any new or worsening symptoms. Patient voices understanding and is agreeable to plan Future Scheduled Tests Laboratory* Creatinine 02/05/24 [facility] 02-27-2025 Hospital Discharge instructionsAmbulatory Orders* Referral to DOZER OPERATOR Time Frame: 04/03/24, Location: [facility] Work Phone: 1(997) 459-421402-14-2025 Radiology Diagnostic study [facility] [place] [address] [place] [address] Ultrasound Report Signed Patient: Iqra Nguyen MR#: [id number] : 1985 Acct:[id number] Age/Sex: 38 / F ADM Date: 5 Loc: [place] Room: Type: [facility] Attending Dr: Juana Benson DO Ordering Provider: Juana Benson DO Date of Service: 03/21/24 MM/MM diagnostic mammo BI w/CAD: N63.10 - Unspecifiedlump in the right breast, unspecifie... ([id number]) US/US breast RT limited: N63.12 - Unspecified lump in the right breast, upper inne... Copies to: Juana Benson DO~ REVISED DOCUMENT - CORRECTION TO RESULT CODE BILATERAL Diagnostic Full Field digital mammogram with 3-D imaging. Full field digital CC and MLO imaging performed. CAD utilized. COMPARISON: Right breast lump HISTORY: Annual screening BREAST COMPOSITION: Scattered fibroglandular densities of the breast parenchyma identified BREAST CALCIFICATIONS: Benign calcifications present. VASCULAR CALCIFICATIONS: None ARCHITECTURAL DISTORTION: None BREAST NODULE: 17 mm nodular density in the anterior medial portion of the rightbreast. AXILLARY LYMPH NODES: Normal POSTSURGICAL CHANGES: None Targeted right breast ultrasound region of the lobe. At the 2:00 position 4 cm from the nipple there is a solid and cystic nodule measuring 1.7 x 0.5 x 1.4 cm.This is probably benign. May represent fat necrosis. US/US breast RT limited IMPRESSION: Probably benign solid and cystic lesion of the right breast. Consider short-term follow-up assessment with targeted right breast ultrasound. RESULT CODE: 3 Probably Benign Finding Short Term Follow-Up DENSITY CODE: 2 (approximately 25-50% glandular) FOLLOW UP: 6M THE FALSE-NEGATIVE RATE OF MAMMOGRAPHY IS APPROXIMATELY 10%. IMAGING OF A PALPABLE ABNORMALITY MUST BE BASED ON CLINICAL GROUNDS. PATIENT WAS ENTERED INTO A REMINDER SYSTEM WITH A TARGET DUE DATE FOR THE NEXT MAMMOGRAM. Impression dictated by: Tigre Welch M.D.03/21/2024 12:39 PM Dictation Location: [facility] Tech: Nanda Joiner; Gris Lakishamichelle Transcribed By: GUIDO 03/21/24 1239 Dictated By: Tigre Welch DO 03/21/24 1123 Signed By: 03/21/24 1239 [facility]01-28-2025 Evaluation note* Author Yolis Saucedo [facility] Authored March 04, 2024 5 :09pm Sooner if needed, the ER if concerns,The above note written by Yolis Saucedo LPN acting as human recorder, note dictated by Dr. Juana Benson Author Jillian Duggan [facility] Authored April 03, 2024 3:40pm The above note written by Sumit PATTERSON acting as human recorder, note dictated by Dr. Juana Benson. [facility] Work Phone: 1(575) 801-755601-28-2025 Evaluation note* Author Yolis Saucedo [facility] Authored March 04, 2024 5 :09pm Sooner if needed, the ER if concerns,The above note written by Yolis Saucedo LPN acting as human recorder, note dictated by Dr. Juana Benson Author Yoliscarlene Saucedo [facility] Authored April 29, 2024 2:5 0pm Sooner if needed, the ER if concerns,The above note written by Yolis Saucedo LPN acting as human recorder, note dictated by Dr. Juana Benson Author [facility] Authored April 03, 2024 3:40pm The above note written by Sumit PATTERSON acting as human recorder, note dictated by Dr. Juana Benson. [facility] Work Phone: 1(996) 115-598301-28-2025 Evaluation note* Author Yolis Saucedo [facility] Authored March 04, 2024 4 :09pm Sooner if needed, the ER if concerns,The above note written by Yolis Saucedo LPN acting as human recorder, note dictated by Dr. Juana Benson Author [facility] Authored April 03, 2024 2:40pm The above note written by Sumit PATTERSON acting as human recorder, note dictated by Dr. Juana Benson. [facility] Work Phone: 1(672) 394-102012-31-2024 Hospital Discharge instructions Patient Education 02/05/2024 12:50:04 Flank Pain, Adult Flank Pain, Adult Flank pain is pain that is located on the side of the body between the upper abdomen and the spine.This area is called the flank. The pain may occur over a short period of time (acute), or it may belong-term or recurring (chronic). It may be mild or severe. Flank pain can be caused by many things, including: Muscle soreness or injury. Kidney infection, kidney stones, or kidney disease. Stress. A disease of the spine (vertebral disk disease). A lung infection (pneumonia). Fluid around the lungs (pulmonary edema). A skin rash caused by the chickenpox virus (shingles). Tumors that affect the back of the abdomen. Gallbladder disease. Follow these instructions at home: Drink enough fluid to keep your urine pale yellow. Rest as told by your health care provider. Take fhbu-tct-vntmozg and prescription medicines only as told by your health care provider. Keep a journal to track what has caused your flank pain and what has made it feel better. Keep all follow-up visits. This is important. Contact a health care provider if: Your pain is not controlled with medicine. You have new symptoms. Your pain gets worse. Your symptoms last longer than 2 3 days. You have trouble urinating or you are urinating very frequently. Get help right away if: You have trouble breathing or you are short of breath. Your abdomen hurts or it is swollen or red. You have nausea or vomiting. You feel faint, or you faint. You have blood in your urine. You have flank pain and a fever. These symptoms may represent a serious problem that is an emergency. Do not wait to see if the symptoms will go away. Get medical help right away. Call your local emergency services (911 in the [place] Do not drive yourself to the hospital. Summary Flank pain is pain that is located on the side of the body between the upper abdomen and the spine. The pain may occur over a short period of time (acute), or it may be long-term or recurring (chronic). It may be mild or severe. Flank pain can be caused by many things. Contact your health care provider if your symptoms get worse or last longer than 2 3 days. This information is not intended to replace advice given to you by your health care provider. Make sure you discuss any questions you have with your health care provider. Document Revised: 04/04/2021 Document Reviewed: 04/04/2021 Architectural Daily Patient Education 2023 [employer]. Follow Up Care 01/22/2024 12:23:29 With:SHANTA MCKEON PA-C, URL Address: [address] [place] [address] Business (1) When: Unknown Comments:pending results of imaging/testing, will call with next steps [facility] 12-31-2024 Evaluation + Plan note Future Scheduled Tests Laboratory* Creatinine 02/05/24 [facility] 12-31-2024 NotePatient Education Orthopedics Flank Pain, Adult Flank pain is pain that is located on the side of the body between the upper abdomen and the spine.This area is called the flank. The pain may occur over a short period of time (acute), or it may belong-term or recurring (chronic). It may be mild or severe. Flank pain can be caused by many things, including: ??? Muscle soreness or injury. ??? Kidney infection, kidney stones, or kidney disease. ??? Stress. ??? A disease of the spine (vertebral disk disease). ??? A lung infection (pneumonia). ??? Fluid around the lungs (pulmonary edema). ??? A skin rash caused by the chickenpox virus (shingles). ??? Tumors that affect the back of the abdomen. ??? Gallbladder disease. Follow these instructions at home: ??? Drink enough fluid to keep your urine pale yellow. ??? Rest as told by your health care provider. ??? Take quln-wfm-oeblidh and prescription medicines only as told by your health care provider. ??? Keep a journal to track what has caused your flank pain and what has made it feel better. ??? Keep all follow-up visits. This is important. Contact a health care provider if: ??? Your pain is not controlled with medicine. ??? You have new symptoms. ??? Your pain gets worse. ??? Your symptoms last longer than 2?3 days. ??? You have trouble urinating or you are urinating very frequently. Get help right away if: ??? You have trouble breathing or you are short of breath. ??? Your abdomen hurts or it is swollen or red. ??? You have nausea or vomiting. ??? You feel faint, or you faint. ??? You have blood in your urine. ??? You have flank pain and a fever. These symptoms may represent a serious problem that is an emergency. Do not wait to see if the symptoms will go away. Get medical help right away. Call your local emergency services (911 in the .[place] Do not drive yourself to the hospital. Summary ??? Flank pain is pain that is located on the side of the body between the upper abdomen and the spine. ??? The pain may occur over a short period of time (acute), or it may be long- term or recurring (chronic). It may be mild or severe. ??? Flank pain can be caused by many things. ??? Contact your health care provider if your symptoms get worse or last longer than 2?3 days. This information is not intended to replace advice given to you by your health care provider. Make sure you discuss any questions you have with your health care provider. Document Revised: 04/04/2021 Document Reviewed: 04/04/2021 Architectural Daily Patient Education ? 2023 [employer].[facility] 01-22-2024 Hospital Discharge instructions Patient Education 01/22/2024 13:02:47 Flank Pain, Adult Flank Pain, Adult Flank pain is pain that is located on the side of the body between the upper abdomen and the spine.This area is called the flank. The pain may occur over a short period of time (acute), or it may belong-term or recurring (chronic). It may be mild or severe. Flank pain can be caused by many things, including: Muscle soreness or injury. Kidney infection, kidney stones, or kidney disease. Stress. A disease of the spine (vertebral disk disease). A lung infection (pneumonia). Fluid around the lungs (pulmonary edema). A skin rash caused by the chickenpox virus (shingles). Tumors that affect the back of the abdomen. Gallbladder disease. Follow these instructions at home: Drink enough fluid to keep your urine pale yellow. Rest as told by your health care provider. Take gzyw-hdq-joduoml and prescription medicines only as told by your health care provider. Keep a journal to track what has caused your flank pain and what has made it feel better. Keep all follow-up visits. This is important. Contact a health care provider if: Your pain is not controlled with medicine. You have new symptoms. Your pain gets worse. Your symptoms last longer than 2 3 days. You have trouble urinating or you are urinating very frequently. Get help right away if: You have trouble breathing or you are short of breath. Your abdomen hurts or it is swollen or red. You have nausea or vomiting. You feel faint, or you faint. You have blood in your urine. You have flank pain and a fever. These symptoms may represent a serious problem that is an emergency. Do not wait to see if the symptoms will go away. Get medical help right away. Call your local emergency services (911 in the [place] Do not drive yourself to the hospital. Summary Flank pain is pain that is located on the side of the body between the upper abdomen and the spine. The pain may occur over a short period of time (acute), or it may be long-term or recurring (chronic). It may be mild or severe. Flank pain can be caused by many things. Contact your health care provider if your symptoms get worse or last longer than 2 3 days. This information is not intended to replace advice given to you by your health care provider. Make sure you discuss any questions you have with your health care provider. Document Revised: 04/04/2021 Document Reviewed: 04/04/2021 Architectural Daily Patient Education 2023 [employer]. Follow Up Care 01/11/2024 15:54:06 With:2 week with Shanta XIAO Address:Unknown When: Unknown [facility] 12-17-2024 NotePatient Education Orthopedics Flank Pain, Adult Flank pain is pain that is located on the side of the body between the upper abdomen and the spine.This area is called the flank. The pain may occur over a short period of time (acute), or it may belong-term or recurring (chronic). It may be mild or severe. Flank pain can be caused by many things, including: ??? Muscle soreness or injury. ??? Kidney infection, kidney stones, or kidney disease. ??? Stress. ??? A disease of the spine (vertebral disk disease). ??? A lung infection (pneumonia). ??? Fluid around the lungs (pulmonary edema). ??? A skin rash caused by the chickenpox virus (shingles). ??? Tumors that affect the back of the abdomen. ??? Gallbladder disease. Follow these instructions at home: ??? Drink enough fluid to keep your urine pale yellow. ??? Rest as told by your health care provider. ??? Take qhsh-xgz-ncbyfds and prescription medicines only as told by your health care provider. ??? Keep a journal to track what has caused your flank pain and what has made it feel better. ??? Keep all follow-up visits. This is important. Contact a health care provider if: ??? Your pain is not controlled with medicine. ??? You have new symptoms. ??? Your pain gets worse. ??? Your symptoms last longer than 2?3 days. ??? You have trouble urinating or you are urinating very frequently. Get help right away if: ??? You have trouble breathing or you are short of breath. ??? Your abdomen hurts or it is swollen or red. ??? You have nausea or vomiting. ??? You feel faint, or you faint. ??? You have blood in your urine. ??? You have flank pain and a fever. These symptoms may represent a serious problem that is an emergency. Do not wait to see if the symptoms will go away. Get medical help right away. Call your local emergency services (911 in the [place] Do not drive yourself to the hospital. Summary ??? Flank pain is pain that is located on the side of the body between the upper abdomen and the spine. ??? The pain may occur over a short period of time (acute), or it may be long- term or recurring (chronic). It may be mild or severe. ??? Flank pain can be caused by many things. ??? Contact your health care provider if your symptoms get worse or last longer than 2?3 days. This information is not intended to replace advice given to you by your health care provider. Make sure you discuss any questions you have with your health care provider. Document Revised: 04/04/2021 Document Reviewed: 04/04/2021 Elsevier Patient Education ? 2023 [employer] Inc.[facility] 01-08-2024 Hospital Discharge instructions Patient Education 01/08/2024 14:16:59 Urinary Tract Infection, Adult, Supx-xj-Shkw Urinary Tract Infection, Adult A urinary tract infection (UTI) is an infection of any part of the urinary tract. The urinary tractincludes: The kidneys. The ureters. The bladder. The urethra. These organs make, store, and get rid of pee (urine) in the body. What are the causes? This infection is caused by germs (bacteria) in your genital area. These germs grow and cause swelling (inflammation) of your urinary tract. What increases the risk? The following factors may make you more likely to develop this condition: Using a small, thin tube (catheter) to drain pee. Not being able to control when you pee or poop (incontinence). Being female. If you are female, these things can increase the risk: ?Using these methods to prevent : ?A medicine that kills sperm (spermicide). ?A device that blocks sperm (diaphragm). ?Having low levels of a female hormone (estrogen). ?Being . You are more likely to develop this condition if: You have genes that add to your risk. You are sexually active. You take antibiotic medicines. You have trouble peeing because of: ?A prostate that is bigger than normal, if you are male. ?A blockage in the part of your body that drains pee from the bladder. ?A kidney stone. ?A nerve condition that affects your bladder. ?Not getting enough to drink. ?Not peeing often enough. You have other conditions, such as: ?Diabetes. ?A weak disease-fighting system (immune system). ?Sickle cell disease. ?Gout. ?Injury of the spine. What are the signs or symptoms? Symptoms of this condition include: Needing to pee right away. Peeing small amounts often. Pain or burning when peeing. Blood in the pee. Pee that smells bad or not like normal. Trouble peeing. Pee that is cloudy. Fluid coming from the vagina, if you are female. Pain in the belly or lower back. Other symptoms include: Vomiting. Not feeling hungry. Feeling mixed up (confused). This may be the first symptom in older adults. Being tired and grouchy (irritable). A fever. Watery poop (diarrhea). How is this treated? Taking antibiotic medicine. Taking other medicines. Drinking enough water. In some cases, you may need to see a specialist. Follow these instructions at home: Medicines Take qqgp-mbo-pojctmx and prescription medicines only as told by your doctor. If you were prescribed an antibiotic medicine, take it as told by your doctor. Do not stop taking it even if you start to feel better. General instructions Make sure you: ?Pee until your bladder is empty. ?Do not hold pee for a long time. ?Empty your bladder after sex. ?Wipe from front to back after peeing or pooping if you are a female. Use each tissue one time whenyou wipe. Drink enough fluid to keep your pee pale yellow. Keep all follow-up visits. Contact a doctor if: You do not get better after 1 2 days. Your symptoms go away and then come back. Get help right away if: You have very bad back pain. You have very bad pain in your lower belly. You have a fever. You have chills. You feeling like you will vomit or you vomit. Summary A urinary tract infection (UTI) is an infection of any part of the urinary tract. This condition is caused by germs in your genital area. There are many risk factors for a UTI. Treatment includes antibiotic medicines. Drink enough fluid to keep your pee pale yellow. This information is not intended to replace advice given to you by your health care provider. Make sure you discuss any questions you have with your health care provider. Document Revised: 08/29/2020 Document Reviewed: 09/03/2020 Architectural Daily Patient Education 2023 [employer]. Follow Up Care 01/08/2024 12:06:28 With:López BEAN Address: [address] [place] [phone] Business (1) When:01/11/2024 14:16:38 Comments:Call to schedule a follow-up appointment with urology in the next 2 to 3 days if symptoms do not improve following this course of antibiotics. Take the antibiotics in entirety. Return to the ED with any new or worsening symptoms. With:JUANA BENSON Address: [address] [place] [phone]- Business (1) When:Within 3 Day(s) [facility] 12-03-2024 NoteED Patient Education Note Obstetrics and Gynecology Urinary Tract Infection, Adult A urinary tract infection (UTI) is an infection of any part of the urinary tract. The urinary tractincludes: ??? The kidneys. ??? The ureters. ??? The bladder. ??? The urethra. These organs make, store, and get rid of pee (urine) in the body. What are the causes? This infection is caused by germs (bacteria) in your genital area. These germs grow and cause swelling (inflammation) of your urinary tract. What increases the risk? The following factors may make you more likely to develop this condition: ??? Using a small, thin tube (catheter) to drain pee. ??? Not being able to control when you pee or poop (incontinence). ??? Being female. If you are female, these things can increase the risk: ? Using these methods to prevent : ? A medicine that kills sperm (spermicide). ? A device that blocks sperm (diaphragm). ? Having low levels of a female hormone (estrogen). ? Being . You are more likely to develop this condition if: ??? You have genes that add to your risk. ??? You are sexually active. ??? You take antibiotic medicines. ??? You have trouble peeing because of: ? A prostate that is bigger than normal, if you are male. ? A blockage in the part of your body that drains pee from the bladder. ? A kidney stone. ? A nerve condition that affects your bladder. ? Not getting enough to drink. ? Not peeing often enough. ??? You have other conditions, such as: ? Diabetes. ? A weak disease-fighting system (immune system). ? Sickle cell disease. ? Gout. ? Injury of the spine. What are the signs or symptoms? Symptoms of this condition include: ??? Needing to pee right away. ??? Peeing small amounts often. ??? Pain or burning when peeing. ??? Blood in the pee. ??? Pee that smells bad or not like normal. ??? Trouble peeing. ??? Pee that is cloudy. ??? Fluid coming from the vagina, if you are female. ??? Pain in the belly or lower back. Other symptoms include: ??? Vomiting. ??? Not feeling hungry. ??? Feeling mixed up (confused). This may be the first symptom in older adults. ??? Being tired and grouchy (irritable). ??? A fever. ??? Watery poop (diarrhea). How is this treated? Taking antibiotic medicine. ??? Taking other medicines. ??? Drinking enough water. In some cases, you may need to see a specialist. Follow these instructions at home: Medicines ??? Take wniw-xgx-pjvxhza and prescription medicines only as told by your doctor. ??? If you were prescribed an antibiotic medicine, take it as told by your doctor. Do not stop taking it even if you start to feel better. General instructions ??? Make sure you: ? Pee until your bladder is empty. ? Do not hold pee for a long time. ? Empty your bladder after sex. ? Wipe from front to back after peeing or pooping if you are a female. Use each tissue one time when you wipe. ??? Drink enough fluid to keep your pee pale yellow. ??? Keep all follow-up visits. Contact a doctor if: ??? You do not get better after 1?2 days. ??? Your symptoms go away and then come back. Get help right away if: ??? You have very bad back pain. ??? You have very bad pain in your lower belly. ??? You have a fever. ??? You have chills. ??? You feeling like you will vomit or you vomit. Summary ??? A urinary tract infection (UTI) is an infection of any part of the urinary tract. ??? This condition is caused by germs in your genital area. ??? There are many risk factors for a UTI. ??? Treatment includes antibiotic medicines. ??? Drink enough fluid to keep your pee pale yellow. This information is not intended to replace advice given to you by your health care provider. Make sure you discuss any questions you have with your health care provider. Document Revised: 08/29/2020 Document Reviewed: 09/03/2020 Architectural Daily Patient Education ? 2023 [employer].[facility] 01-08-2024 Evaluation + Plan noteExtracted from: Title:ED Note Author:Kallie MariaKevin Date:01/08/24 Acute right flank pain (R10. 9: Unspecified abdominal pain) Acute UTI (urinary tract infection) (N39.0: Urinary tract infection, site not specified) Orders: sulfamethoxazole-trimethoprim, 1 tab(s), Oral, BID for 5 day(s), 10 tab(s), Refill(s) 0, [facility], 160, cm, 01/08/24 12:12:00 EST, Height/Length Dosing, 109, kg, 01/08/24 12:12:00 EST, Weight Dosing Basic Metabolic Panel Bladder Scan CBC w/ Auto Diff CT Abdomen/Pelvis w/o Contrast eGFR Extra Blue Tube Extra SST Tube Hepatic Function Panel Lipase Level U Beta Hcg Qual Diagnostic Tests Pending * Urine Culture 01/08/24 [facility] 11-21-2024 History of Present illness Narrative* Ashley Lockett, PAMELLA - 12/27/2023 11:10 AM EST [address], [address] [facility], [address] P: [phone] F: [phone] HPI Historian of HPI: patient Iqra Nguyen is a 38 y.o. female who presents today to the Urgent Care with the following complaints and denials which have been present for 3 day(s) pt states she was exposed to COVID and would like to be tested for COVID. C/O Denies Symptom Comments [] [x] Runny Nose [] [x] Difficulty Swallowing [] [x] Sore Throat [x] [] Cough Chest pain, chest tightness, slight SOB [] [x] Ear Pain [] [x] Fever [x] [] Chills [] [x] Nasal Congestion [x] [] Myalgia Fatigued [] [x] Sinus Pain [] [x] Sinus Pressure Additional Comments: pt has not taken any OTC medications ROS A complete system ROS was performed and negative aside from the pertinent positives noted in the HPI and PE. IH Testing: The following tests were performed PCR COVID Test SEE TEST(S) ORDERS FOR RESULTS PHYSICAL EXAM Examination General Examination: General Examination: alert, oriented, normal affect, well appearing, in no acute distress, well developed, well nourished Head: normocephalic, atraumatic Eyes: sclera non-icteric Ears: tympanic membrane intact, clear, auditory canal non inflamed Nose: congested with clear drainage. Oral Cavity: mucosa moist, no lesions Throat: PND noted Neck/Thyroid: uvula midline Lymph Nodes: no cervical adenopathy Heart: no murmurs, regular rate and rhythm, S1, S2 normal Lungs: clear to auscultation bilaterally Extremities: no edema, no cyanosis Neurologic: alert and oriented Psych: alert, oriented, cognitive function intact, cooperative with exam TREATMENT PLAN 1. Close exposure to COVID-19 virus (Primary) Covid-19 negative today. Advised her to retest at home in 48 hours. - RAPID DNA COVID 2. Viral upper respiratory infection Diagnosis and treatment discussed. Discussed likely viral illness at this time. Advised supportive therapies such as nasal saline nasal spray as needed to help thin the nasal/sinus drainage, cool mist humidifier, lots of fluids. Tylenol or ibuprofen as needed for pain or fever. Follow-up with pcp in 7 to 10 days for non-improving symptoms, or sooner for new or worsening symptoms. To ED for signs of dehydration, high fever, trouble swallowing secretions, sob. Will consider antibiotic if no better by Sunday. - yjcfjibmmfvieyr-lmintmuxfnxweox-DO 30-2-10 MG/5ML syrup; Take 5-10 mL by mouth 4 (four) times a day as needed for congestion or cough for up to 7 days Dispense: 118 mL; Refill: 0 documented in this encounterOzarks Medical [id number] Evaluation note* Author Jillian [facility] Authored December 26, 2023 3:32pm Jillian Duggan [facility] Work Phone: 1(288) 415-556811-20-2024 Evaluation note* Author Jillian [facility] Authored December 26, 2023 3:32pm Jillian Duggan [facility] Author Yolis Saucedo [facility] Authored March 04, 2024 4 :09pm Sooner if needed, the ER if concerns,The above note written by Yolis Saucedo LPN acting as human recorder, note dictated by Dr. Juana Benson [facility] Work Phone: [phone]) 204-982110-16-2024 History of Present illness Narrative* Reta Carrion MA - 11/21/2023 3:30 PM EDT Pt presents today for a [facility] follow up visit - JUAREZ: Kendy. DOI: 08/24/2022. Job Title: materials planner/production planner Pt states that while working they Tilted a roll onto a pallet and pinched a nerve or pulled a muscle. HPI: Historian of HPI: patient Iqra Nguyen is a 37 y.o. female who presents today to the Urgent Care with the following complaints and denials due right shoulder pain which has been present for 9 month(s). C/O Denies Symptom Comments [x] [] swelling [] [x] ecchymosis [] [x] erythema [] [x] tingling [] [x] numbness [x] [] Pain radiation [] [x] Weakness [] [x] Decreased ROM [x] [] Trauma [facility] Additional Comments: pt has not taken any OTC medications Pt denies heat application to the affected area Pt denies cold application to the affected area Patient states that nothing is helping with her pain. Patient states that pain 9/[address] [facility] denied injection with Dr. Kelley and Pain medicine Examination General Examination: General Examination: in no acute distress, well developed, well nourished Head: normocephalic, atraumatic Eyes: sclera non-icteric Neck/Thyroid: no carotid bruit, FROM Skin: no rashes Heart: no murmurs, regular rate and rhythm, S1, S2 normal Lungs: clear to auscultation bilaterally Musculoskeletal: right shoulder: Tenderness over right trapezius extending down the medial border of the right scapula. Active abduction limited to 75 degrees with pain on the right. Opposed abduction with pain. Jobes sign positive. Survey Engineer strength intact at the shoulder, increased pain at all plainswith resistance. Extremities: no clubbing, cyanosis, or edema Peripheral Pulses: 2+ radial, 2+ ulnar. Neurologic: sensory exam intact to UE Psych: alert, oriented, cognitive function intact, cooperative with exam. HPI, ROS, and PE reviewed and amended by Dr. Aroldo Andino as necessary. Written by sita Cormier, LEONARDO 1. Strain of right shoulder, initial encounter Rachael today by ortho who has recommenced injects by Dr. Nevarez. [facility] has not approved this procedure. Pt will be contacting feeder operator and will then determine further course of action. 12/19/23 at 3:30 pm documented in this encounterOzarks Medical [id number] History of Present illness Narrative* Philip Tuan Noyola, DO - 11/21/2023 2:45 PM EDT Images from the original note were not included. HISTORY OF PRESENT ILLNESS: EST PT Iqra Nguyen is an 38 y.o. @ female. CLAIM # [id number] ALLOWED DX : S46.911A / M75.21 DISMISSED DX : S43.431A / S46.011A (EST PT / [facility] ) S/P (R) SHOULDER INJURY 08/24/22 (~15 MONTHS) ; C9 REQUEST DENIED ([facility] INJECTION & DR NEVAREZ REFERRAL) - PT IS UNDECIDED ABOUT HIRING A SHEARING SHED HAND XRAYS, C-SPINE 05/04/23 [facility] X[facility], (R) SHOULDER 08/29/22 [facility], (R[facility] [facility]05/22 ; DENIES ANY RELIEF NO CORTISONE INJ S/P (R) SHOULDER PHYSICAL THERAPY (8 SESSIONS) @ [facility] ; 10/2022 - 11/2022 NO PAIN MGMT NO CHANGES - CONTINUES TO HAVE CONSTANT DISCOMFORT ; POSTERIOR ASPECT - WORSE WITH ACTIVITY / MOVEMENT. NOTES SOME RADIATING PAIN DOWN HER ARM, NO N/T. NOTES FULL / PAINFUL ROM ; DENIES ANY WEAKNESS.CURRENTLY PAIN MEDS ; PREVIOUSLY TRIED TYLENOL / ADVIL / IBUPROFEN 800 ; SOME RELIEF FROM HOT SHOWER. 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) H/O INJURY : NOTED PAIN AFTER TIPPING A ROLL ONTO A PALLET WHEN HOISTING IT OFF THE LINE JUAREZ : KENDY ALLERGIES: No Known Allergies HOME MEDICATIONS: Current Outpatient Medications Medication Instructions OXcarbazepine (Trileptal) 600 MG tablet 1 tablet Orally at bedtime for 90 days Qulipta 60 mg, Oral, Daily SUMAtriptan (Imitrex) 100 MG tablet 1 tablet at least 2 hours between doses as needed max 2 per dayand 2 per week Strength: 100 mg Topiramate ER (Trokendi XR) 200 MG capsule sustained-release 24 hr 1 capsule, Oral, Nightly PHYSICAL EXAM: Shoulder Musculoskeletal Exam Inspection Right Right shoulder inspection is normal. Ecchymosis: none Peripheral edema: none Atrophy: none Masses: none Palpation Right Right shoulder palpation is normal. Crepitus: no crepitus Increased warmth: none Tenderness: present (PAIN WITH PALPATION OVER RHOMBOID) Range of Motion Right Right shoulder range of motion is normal. Active ROM: normal and pain. Passive ROM: normal. Range of motion additional comments: +PAIN NOTED WITH ANY ROM TO RHOMBOID Strength Right External rotation: 5/5. Internal rotation: 5/5. Abduction: 5/5. Biceps: 5/5. Triceps: 5/5. Neurovascular Right Radial pulse: normal and 2+ Capillary refill: <3 sec Axillary nerve sensory distribution: normal Scapula Right Right shoulder scapula is normal. Position: normal Winging: none Vitals: There is no height or weight on file to calculate BMI. Tobacco Use: Low Risk (11/21/2023) Patient History Smoking Tobacco Use: Never Smokeless Tobacco Use: Never Passive Exposure: Not on file Alcohol Use: Not on file IMAGING: Procedures No orders of the defined types were placed in this encounter. ASSESSMENT: ICD-10-CM 1. Strain of right shoulder, initial encounter S46.911A PLAN: We have answered all the patients questions and explained the patients condition, decision making and plan including the risks and benefits associated with said plan in layman''s terms in a language the patient could understand easily. If patient''s symptoms significantly worsen and they cannot get a hold of us or their family physician, we have recommended that the patient proceed to the nearest emergency department (room). Dr. Noyola obtained history and examined the patient, I am acting as scribe for Dr. Noyola/sunny, PLAN: We have reviewed prior (R) shoulder xrays / MRI and C-Spine xrays results. We recommended an injection / referral to DR. Nevarez on last follow up with has been denied through workmans comp. We are recommending she start cross body stretches. We have discussed her HEP and restrictions and will see her back on a prn basis. Philip Noyola D.O. documented in this encounterOzarks Medical [id number] History of Present illness Narrative* Sheree Kendall NP - 10/17/2023 3:30 PM EDT Pt presents today for a [facility] follow up visit - JUAREZ: Kendy. DOI: 08/24/2022. Job Title: materials planner/production planner Pt states that while working they Tilted a roll onto a pallet and pinched a nerve or pulled a muscle. HPI: Historian of HPI: patient Iqra Nguyen is a 37 y.o. female who presents today to the Urgent Care with the following complaints and denials due right shoulder pain which has been present for 9 month(s). C/O Denies Symptom Comments [x] [] swelling [] [x] ecchymosis [] [x] erythema [] [x] tingling [] [x] numbness [x] [] Pain radiation [] [x] Weakness [] [x] Decreased ROM [x] [] Trauma [facility] Additional Comments: pt has not taken any OTC medications Pt denies heat application to the affected area Pt denies cold application to the affected area Patient states that nothing is helping with her pain. Patient states that pain 9/10 majority of thetime. Pt had a visit with Dr. Noyola to see about injections and this was denied. Pt was advised to come back here to be evaluated to try and get this approved Pt states her lead case manager left her a message that the claim doesn't have allowable dx attached. States she does know the fraying dx were denied but unsure if she got any paperwork on tendonitis dx. Examination General Examination: General Examination: in no acute distress, well developed, well nourished Head: normocephalic, atraumatic Eyes: sclera non-icteric Neck/Thyroid: FROM Musculoskeletal: right: Tenderness over AC joint and supraspinatus. Active abduction limited to 75 degrees due to pain. Opposed abduction decreased due to pain. Jobes sign positive. Survey Engineer strength intact. Spasm noted over right trap. Extremities: no clubbing, cyanosis, or edema Peripheral Pulses: 2+ radial, 2+ ulnar. right Neurologic: sensory exam intact to RUE Psych: alert, oriented, cognitive function intact, cooperative with exam. 1. Strain of right shoulder, initial encounter Discussed pt needs to contact her lead case manager for additional clarification on allowable dx as additional dx were submitted in April of 2023. Discussed informing this office if any further paperwork and documentation is needed/required. RTW w/o restrictions. Follow up with this office 1 month and as needed. documented in this encounterOzarks Medical [id number] History of Present illness Narrative* Jr. Philip Noyola, - 10/05/2023 3:00 PM EDT Images from the original note were not included. HISTORY OF PRESENT ILLNESS: EST PT Iqra Nguyen is an 37 y.o. @ female. ALLOWED DX : S46.911A / M75.21 DISMISSED DX : S43.431A / S46.011A (EST PT / [facility] ) S/P (R) SHOULDER INJURY 08/24/22 (~13 MONTHS) ; S/P PHYSICAL THERAPY REQUEST (NECK STRAIN) DENIED XRAYS, C-SPINE 05/04/23 IN [facility] XRAYS, (R) SHOULDER 08/29/22 [facility] MRI, (R) SHOULDER 03/28/23 [facility] S/P MDP 09/05/22 ; DENIES ANY RELIEF NO CORTISONE INJ S/P (R) SHOULDER PHYSICAL THERAPY (8 SESSIONS) @ [facility] ; 10/2022 - 11/2022 NO PAIN MGMT CONTINUES TO HAVE CONSTANT DISCOMFORT ; POSTERIOR ASPECT - WORSE WITH ACTIVITY / MOVEMENT. NOTES SOME RADIATING PAIN DOWN HER ARM, DENIES ANY N/T. NOTES FULL / PAINFUL ROM ; DENIES ANY WEAKNESS. CURRENTLY PAIN MEDS ; PREVIOUSLY TRIED TYLENOL / ADVIL / IBUPROFEN 800 ; SOME RELIEF FROM HOT SHOWER. 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) H/O INJURY : NOTED PAIN AFTER TIPPING A ROLL ONTO A PALLET WHEN HOISTING IT OFF THE LINE JUAREZ : KENDY ALLERGIES: No Known Allergies HOME MEDICATIONS: Current Outpatient Medications Medication Instructions OXcarbazepine (Trileptal) 600 MG tablet 1 tablet Orally at bedtime for 90 days Qulipta 60 mg, Oral, Daily SUMAtriptan (Imitrex) 100 MG tablet 1 tablet at least 2 hours between doses as needed max 2 per dayand 2 per week Strength: 100 mg Topiramate ER (Trokendi XR) 200 MG capsule sustained-release 24 hr 1 capsule, Oral, Nightly PHYSICAL EXAM: Shoulder Musculoskeletal Exam Inspection Right Right shoulder inspection is normal. Ecchymosis: none Peripheral edema: none Atrophy: none Masses: none Palpation Right Right shoulder palpation is normal. Crepitus: no crepitus Increased warmth: none Tenderness: present (PAIN WITH PALPATION OVER RHOMBOID) Range of Motion Right Right shoulder range of motion is normal. Active ROM: normal and pain. Passive ROM: normal. Range of motion additional comments: +PAIN NOTED WITH ANY ROM TO RHOMBOID Strength Right External rotation: 5/5. Internal rotation: 5/5. Abduction: 5/5. Biceps: 5/5. Triceps: 5/5. Neurovascular Right Radial pulse: normal and 2+ Capillary refill: <3 sec Axillary nerve sensory distribution: normal Scapula Right Right shoulder scapula is normal. Position: normal Winging: none Vitals: There is no height or weight on file to calculate BMI. Tobacco Use: Low Risk (10/05/2023) Patient History Smoking Tobacco Use: Never Smokeless Tobacco Use: Never Passive Exposure: Not on file Alcohol Use: Not on file IMAGING: Procedures No orders of the defined types were placed in this encounter. ASSESSMENT: ICD-10-CM 1. Strain of right shoulder, initial encounter S46.911A PLAN: We have answered all the patients questions and explained the patients condition, decision making and plan including the risks and benefits associated with said plan in layman''s terms in a language the patient could understand easily. If patient''s symptoms significantly worsen and they cannot get a hold of us or their family physician, we have recommended that the patient proceed to the nearest emergency department (room). Dr. Noyola obtained history and examined the patient, I am acting as scribe for Dr. Noyola/jayden, PLAN: After examination today we are recommending a referral to Dr. Junie with patient's verbal agreeance, we will also submit for approval for a trigger point injection to her (R) rhomboid. We have discussed her HEP and restrictions and will see her back in 4 weeks to reassess her right shoulder. Philip Noyola D.O. documented in this encounterOzarks Medical [id number] Telephone encounter Note* Telephone Encounter - Tracy Lay NP - 03/20/2023 5:09 PM EST sent [facility] [id number] Miscellaneous Notes* Telephone Encounter - Tracy Lay NP - 03/20/2023 5:09 PM EST sent * Telephone Encounter - Berta Royal - 03/20/2023 2:16 PM EST Patient called and states that she is also needing refill of Trileptal to be sent to [facility] in [place]. documented in this encounterOzarks Medical [id number] History of Present illness Narrative* Aroldo Andino DO - 03/20/2023 3:30 PM EST Pt presents today for a [facility] follow up visit - JUAREZ: kendy DOI: 08/24/22 Pt states that while working they Tilted a roll onto a pallet and pinched a nerve or pulled a muscle. Pt rates her pain a 0 out of 10 today Pt states she feels 25% better today HPI: Historian of HPI: patient Iqra Nguyen is a 37 y.o. female who presents today to the Urgent Care with the following complaints and denials due right shoulder pain pt states she is trying to get approved for an MRI. C/O Denies Symptom Comments [x] [] swelling [] [x] ecchymosis [] [x] erythema [] [x] tingling [] [x] numbness [x] [] Pain radiation Right shoulder down right arm [x] [] Weakness Hard time lifting heavy objects using right arm [x] [] Decreased ROM Using right arm for work [x] [] Trauma [facility] injury Additional Comments: pt has not taken any OTC medications Pt denies heat application to the affected area Pt denies cold application to the affected area ROS: A complete system ROS was performed and negative aside from the pertinent positives noted in the HPI and PE. Examination General Examination: General Examination: in no acute distress, well developed, well nourished Head: normocephalic, atraumatic Eyes: sclera non-icteric Neck/Thyroid: no carotid bruit, FROM Skin: no rashes Heart: no murmurs, regular rate and rhythm, S1, S2 normal Lungs: clear to auscultation bilaterally Musculoskeletal: right shoulder: Tenderness over right trapezius extending down the medial border of the right scapula. Active abduction limited to 75 degrees with pain on the right. Opposed abduction with pain. Jobes sign positive. Survey Engineer strength intact at the shoulder, increased pain at all plainswith resistance. Extremities: no clubbing, cyanosis, or edema Peripheral Pulses: 2+ radial, 2+ ulnar. Neurologic: sensory exam intact to UE Psych: alert, oriented, cognitive function intact, cooperative with exam. HPI and documentation approved and amended as necessary by Dr. Aroldo Andino. Transcribed by Ashley buckner, ADIN-IV 1. Strain of right shoulder, initial encounter Dx and tx reviewed with patient. At this point in time based on mechanism of injury, current complaints, and exam findings there is a high degree of suspicion for rotator cuff injury. MRI is necessary at this time for further evaluation. Work restrictions discussed. RTC 04/17/2023, 3:30 PM for recheck. documented in this encounterOzarks Medical [id number] Instructions* Patient Instructions* Ashley Leal RN - 03/20/2023 3:30 PM EST See progress note documented in this encounterOzarks Medical [id number] Telephone encounter Note* Telephone Encounter - Berta Royal - 03/20/2023 2:16 PM EST Patient called and states that she is also needing refill of Trileptal to be sent to [facility] in [place]. Ozarks Medical [id number] Evaluation note* Encounter Date Diagnosis Assessment Notes Treatment Notes Treatment Clinical Notes Nov, Hemorrhoids (ICD-10 - K64.9) Nov, Irritable bowel syndrome with diarrhea (ICD-10 - K58.0) Patient advised to start a probiotic daily Patient advised to start metamucil daily-3 gumies daily Rto 4 weeks Nov, Rectal polyp (ICD-10 - K62.1) Nov, Abdominal pain (ICD-10 - R10.9) Nov, Diarrhea (ICD-10 - R19.7) [employer] Other 08-25-2023 [facility]* Encounter Date Diagnosis Assessment Notes Treatment Notes Treatment Clinical Notes Aug, Blood in stool (ICD-10 - K92.1) Patient reports that she has blood in her stool about once per month without diarrhea and pain Patient reports that she has a history of colon polyps and blood in stool with clots Patient is to have a colonoscopy this will be scheduled today prep instructions given today Risks and benefits of procedure explained to patient; patient verbalizes understanding. sample of plenvue given today [employer] Other 07-12-2023 Evaluation note* Encounter Date Diagnosis Assessment Notes Treatment Notes Treatment Clinical Notes Aug, Blood in stool (ICD-10 - K92.1) [employer] Other 08-03-2022 Evaluation note* Encounter Date Diagnosis Assessment Notes Treatment Notes Treatment Clinical Notes Sep, Right lateral epicondylitis (ICD-10 - M77.11) Patient instructed on the use of oral and topical NSAIDs, order provided for occupational therapy, Rx given for Medrol Dosepak. Sep, FCU (flexor carpi ulnaris) tenosynovitis (ICD-10 - M65.9) Patient instructed on the use of oral and topical NSAIDs, order provided for occupational therapy, Rx given for Medrol Dosepak. Sep, Right wrist pain (ICD-10 - M25.531) Sep, Right elbow pain (ICD-10 - M25.521) [employer] Other 07-08-2022 Evaluation note* Encounter Date Diagnosis Assessment Notes Treatment Notes Treatment Clinical Notes Aug, Wellness examination (ICD-10 - Z00.00) Personalized health advice was given to the beneficiary to health education of preventative counseling services or programs aimed at reducing identified risk factors and improving self-management or community-based lifestyle interventions to reduce health risks and promote self-management and wellness, including physical activity and nutrition. A written plan for screenings was discussed, flu vaccination, routine lab studies, eye exams, as well as risk factors for other medical problems. Aug, Generalized postprandial abdominal pain (ICD-10 - R10.84) Patient reports stomach discomfort right after consuming food. Patient did have cholecyst[place] [address] Dhillon. Aug, Weight loss (ICD-10 - R63.4) Patient presents in the office with a 25 pound weight loss from last check. Aug, Hyperlipidemia (ICD-10 - E78.5) Cholesterol levels have decreased from last check. Encouraged patient to continue monitoring diet and exercise. Aug, Gastroesophageal reflux disease, unspecified whether esophagitis present (ICD-10 - K21.9) I did prescribe the above medication and we will recheck again in one month. If the insurnace does not pay for the prescription I advised the patient to continuous pickling line pickler over the counter. [employer] Other 02-25-2022 Evaluation note* Encounter Date Diagnosis Assessment Notes Treatment Notes Treatment Clinical Notes Mar, Right arm pain (ICD-10 - M79.601) Right wrist XR noted no abnormalities. Mar, BMI 40.0-44.9, adult (ICD-10 - Z68.41) Discussed different types of diet plans with the patient. Advised patient to increase exercise as tolerated. Mar, De Quervain's tenosynovitis, right (ICD-10 - M65.4) Upon discussion of the patients symptoms. I do beleive this is de quervains syndrome of the right wrist. Therefore, I did suggest a referral to Dr. Garza fir possible injections. Patient is agreeable. Referral initiated. Mar, Hyperlipidemia (ICD-10 - E78.5) Blood work ordered for wellness exam. [employer] Other 01-28-2022 Evaluation note* Encounter Date Diagnosis Assessment Notes Treatment Notes Treatment Clinical Notes Feb, Wrist pain, acute, right (ICD-10 - M25.531) Patient continues with significant right wrist pain despite steroid regime and NSAIDS. Patient is to continue wearing the brace provided. Above x-ray ordered. Patient is to continue with Ibuprofen and Tylenol. Patient provided with sample of Pennsaid. [employer] Other [id number] History general Narrative - Reported* Type Description Date Medical History 08/05/2011 Blood wor k Lipid, Sed Rate, Anti Nuclear ATB, Profile 367, C-Reactive, CMP, CBC, T4, TSH, HGA1C (5.8) Medical History 07/31/2011 Blood wor k CMP, CBC, D Bilirubin, Oxcarbazepine Medical History 08/07/11 Urine Culture Medical History chicken pox Medical History seizures Medical History 08/2018 Colonoscopy Normal- repe at 6 years Surgical History RIGHT EYE SURGERY Surgical History NOSE SURGERY; BROKE NOSE Surgical History Right knee surgery- Dr. Gómez 0 08/2017 Surgical History Colonoscopy - Dr. Kidd 2018 Surgical History Cholecystectomy - [facility] 11/2018 Hospitalization History Seizure [employer] Other Evaluation + Plan note Future Appointments Appointment Date:02/05/2024 11:40:00 AM Scheduled Provider:SHANTA MCKEON PA-C Location:[facility] Appointment Type:URO Office Visit [facility] evaluation + Plan note Future Appointments Appointment Date:02/08/2024 08:00:00 AM Scheduled Provider: Location:FT.XRAY Appointment Type:XR Genital/Urinary Procedures (FT) Future Scheduled Tests Laboratory* Creatinine 02/05/24 Radiology* XR IVP 02/08/24 [facility] evaluation noteNo InformationNolake [facility] [place] Other Evaluation noteNo assessment information available [facility] Work Phone: Evaluation note* Diagnosis Intractable migraine without aura and with status migrainosus (CMS/HCC)- Primary History of seizure disorder Other personal history of disorders of nervous system and sense organs documented in this encounter [facility]* Diagnosis Strain of right shoulder, initial encounter- Primary documented in this encounter [facility]* Diagnosis Strain of right shoulder, initial encounter- Primary documented in this encounter [facility]* Diagnosis Strain of right shoulder, initial encounter documented in this encounter [facility]* Author Jillian Duggan [facility] Authored December 26, 2023 3:32pm Jillian Duggan [facility] Work Phone: Evaluation note* Diagnosis Close exposure to COVID-19 virus- Primary Viral upper respiratory infection Acute upper respiratory infections of unspecified site documented in this encounter [facility]* Diagnosis Strain of right shoulder, initial encounter- Primary documented in this encounter [facility]* Diagnosis Intractable migraine without aura and with status migrainosus (CMS/HCC) History of seizure disorder Other personal history of disorders of nervous system and sense organs documented in this encounter [facility]* Diagnosis Encounter for gynecological examination without abnormal finding- Primary Encounter for screening for cervical cancer Abdominal pain, unspecified abdominal location Pelvic pain in female Unspecified symptom associated with female genital organs Hirsutism Irregular menses Irregular menstrual cycle Menorrhagia with irregular cycle documented in this encounter [facility] HealthcareHistory and physical note Author Jorden Ramos [facility] September 29, 2022 10:02am Note Date/Time September 29, 2022 10 :02am [facility] [address] [place] [address] Gastroenterology H&P Signed Patient: Gurpreet Nguyencharlotte Banuelos MR#: [id number] : 1985 Acct:[id number] Age/Sex: 36 / F Adm Date: 3 Loc: Room: Type: [facility] Attending Dr: Jorden Ramos MD Copies to: DO Jorden Reddy MD~ Date of Service: 09/29/2022 HISTORY & PHYSICAL: Patient's history with special attention to the cardiovascular, pulmonary systems and the current problem was reviewed with the patient immediately prior to the procedure. Present medications and doses reviewed in the EMR. Allergies and pertinent laboratory tests were also reviewedat this time in the EMR. The physical examination, as below, was then performed. Indication, assessment and HPI: 36-year-old female with apparent history of colon polyps presents for colonoscopy to evaluate rectal bleeding Family history of GI malignancy? No PHYSICAL EXAMINATION Mouth and Pharynx : Moist mucus membranes, normal dentition Cardiac: Regular rate, regular rhythm Pulmonary: Clear to auscultation bilaterally, no wheezing Neurological: Alert and oriented x3, no focal deficits noted Abdomen: Abdomen soft, non-tender REVIEW OF SYSTEMS Constitutional: Denies malaise, fevers Cardiovascular: Denies chest pain, palpitations Respiratory: Denies shortness of breath, wheezing Gastrointestinal: Per HPI Genitourinary: Denies dysuria, polyuria Musculoskeletal: Denies joint swelling, joint stiffness Neurological: Denies numbness, tingling Integumentary: Denies rashes, skin lesions Endocrine: Denies fatigue, weight loss Written informed consent obtained from the patient. Risks (including but not limited to perforation, infection, bloating, bleeding, need for emergent surgeryand loss of life), benefits and alternatives explained and questions answered. The patient verbalized understanding. Based on history patient is an appropriate candidate for the procedure. Jorden Ramos MD Documented By: Jorden Ramos MD 09/29/22 1002 Signed By: <Electronically signed by Jorden Ramos MD> 09/29/22 1002 [facility] Work Phone: Hospital course Narrative No data available for this section [facility] Discharge instructions Additional Instructions DISCHARGE INSTRUCTIONS FOR COLONOSCOPY WHAT TO EXPECT: - You may feel full, gassy or cramping after your procedure. In some cases, this may be from a few hours to a day. Walking may help relieve the discomfort. - If you have polyp(s) removed you may note some minor bloody discharge after your first bowel movements. - You should begin to recover from anesthesia within 1 hour of the procedure, however may feel groggy for the next 24 hours. DO's AND DON'Ts: - Call your doctor right away if you have a hard abdomen, severe pain, are passing lots of bright red blood or clots. - Call your doctor if you develop any rashes, hives or difficulty breathing. - Let your doctor know if you have not had a bowel movement by 3 days after your procedure. - If you take 81 mg aspirin for your heart it is safe to resume this medication. - If you take other blood thinner medications your doctor will instruct you when these can safely be resumed. - Do NOT drive for 24 hours. - Do NOT operate machinery such as power tools, lawn mowers, snow blowers, sewing machines, etc. for 24 hours. - Avoid alcoholic beverages and drugs for allergies, nerves, or sleep. - Do NOT stay alone. Do NOT leave your child unattended. - Do NOT make important personal or business decisions or sign any legal documents. - Eat solid foods and drink liquids in smaller amounts than usual until normal appetite returns. If you should experience an upset stomach, liquids high in sugar content (soda, Moises-Aid, non-acid juices) are recommended. - You can resume normal activities tomorrow. FOLLOW UP & RECOMMENDATIONS: -The GI office will schedule you a follow-up appointment. -Notify the doctor if you have any problems. -Repeat colonoscopy in 5 years. -Follow up with PCP. -Office number [phone].[facility] Work Phone: Hospital Discharge instructions No data available for this section [facility] Progress note No data available for this section [facility] Summary Purpose Family History No Family History Records Found Relationship Condition Age at Onset Recorded Date/T nena Not Specified No pertinent family history Unknown Relationship Condition Age at Onset Recorded Date/T nena Not Specified No pertinent family history Unknown grandparent Unknown Advance Directives No Advanced Directives Records Found Advance Directive Response Recorded Date/ Time Advance Directives No May 09 11:13am Advance Directive Response Recorded Date/ Time Advance Directives No May 09 10:13am Reason for Referral Reason *Waiting for appt consult and treat; soonest available ; blood with bowel movements; nonpainful 2 previously normal colonoscopies; most recent 2018 Diagnosis 1 Blood in stool (K92. 1) Referral Organization [facility] Family Medicin e [place] Referring Provider First Name Juana Referring Provider Last Name Asia Referring Provider Specialty Family Prac maria luz Referred Organization [facility] Gastroenterolo gy Referred Provider Socrates German Referred Address [address] [facility] [address] ,[place], [place],[address] Referred Provider Specialty Gastroentero logy Referral Priority Routine General Notes Yolis Saucedo 2022 11:31:27 AM > Pt is fine with either [facility] or [facility] Gastro. Whoever can see her sooner. She needs an appt after 3pm if possible as she works until 3p in [place]. Will make do with latest available though. Thanks! ForeGaby 08/17/2022 12:04:49 PM >Yolis, Dr. Crooks is leaving as of 09/27/22 and is not accepting new patients. They do have a new doctor that is not fully credentialed. So they are scheduling like into November. We can send to our [facility] if that is ok. I know you stated that above but I wanted you to be aware of what is going on. Yolis Saucedo 08/17/2022 12:18:26 PM > Oh okay, I knew he was retiring but we were under the impression the new doctor would be taking over his patient's but that's perfectly fine to go to [facility] instead please! 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) Referral Organization [facility] [place] Referring Provider First Name Juana Referring Provider Last Name Asia Referring Provider Specialty Family Prac maria luz Referred Organization [facility] Ortho pedics Referred Provider Amanda Garza Referred Address [address] [facility] [facility] [place], [place],[address] Referred Provider Specialty Hand Surgery Referral Priority Routine Chief Complaint and Reason for Visit Chief Complaint Blood in Stool Chief Complaint Admit Date UA December 26, 2023 3:18pm Chief Complaint Admit Date UA December 26, 2023 3:18pm Dysuria December 26, 2023 3:37pm Reason for Visit Admit Date Dysuria December 26, 2023 3:18pm Chief Complaint Admit Date UA December 26, 2023 3:18pm R30.0 December 26, 2023 3:37pm Rt side pain March 04, 2024 2 :14pm Lower spine March 17, 2024 3:15pm N63.10 March 21, 2024 7:33am Reason for Visit Admit Date Dysuria December 26, 2023 3:18pm Lump of right breast March 04, 2024 2:14pm Radiculopathy, thoracolumbar region [facility] 2024 2:14pm Chief Complaint Admit Date Rt side pain March 04, 2024 2 :14pm N63.10 March 21, 2024 7:33am Lower spine March 31, 2024 3:15pm 1 month f/u April 03, 2024 2:06pm Reason for Visit Admit Date Lump of right breast March 04, 2024 2:14pm Radiculopathy, thoracolumbar region [facility] 2024 2:14pm Lump of right breast April 03, 2024 2:06pm Radiculopathy, thoracolumbar region [facility] 2024 2:06pm Pelvic pain April 03, 2024 2:06pm Chief Complaint Admit Date Rt side pain March 04, 2024 2 :14pm N63.10 March 21, 2024 7:33am Lower spine March 31, 2024 3:15pm 1 month f/u April 03, 2024 2:06pm R10.9 M54.15 R10.1 E78.5 April 07, 2024 6:48am Chief Complaint Admit Date Rt side pain March 04, 2024 2 :14pm N63.10 March 21, 2024 7:33am Lower spine March 31, 2024 3:15pm 1 month f/u April 03, 2024 2:06pm R10.9 M54.15 R10.1 E78.5 April 07, 2024 6:48am M54.15 April 08, 2024 3:15 pm Chief Complaint Admit Date Rt side pain March 04, 2024 2 :14pm N63.10 March 21, 2024 7:33am Lower spine March 31, 2024 3:15pm 1 month f/u April 03, 2024 2:06pm R10.9 M54.15 R10.1 E78.5 April 07, 2024 6:48am M54.15 April 08, 2024 3:15 pm 3-4 week f/u April 29, 2024 2:0 5pm Reason for Visit Admit Date Lump of right breast March 04, 2024 2:14pm Radiculopathy, thoracolumbar region Tony benjamin 2024 2:14pm Lump of right breast April 03, 2024 2:06pm Radiculopathy, thoracolumbar region Febr uary 2024 2:06pm Pelvic pain April 03, 2024 2:06pm Hydronephrosis April 29, 2024 2:0 5pm Radiculopathy, thoracolumbar region Josh 2024 2:05pm Chief Complaint Admit Date Rt side pain March 04, 2024 2 :14pm N63.10 March 21, 2024 7:33am Lower spine March 31, 2024 3:15pm 1 month f/u April 03, 2024 2:06pm R10.9 M54.15 R10.1 E78.5 April 07, 2024 6:48am M54.15 April 08, 2024 3:15 pm 3-4 week f/u April 29, 2024 2:0 5pm N20.0 May 07, 2024 3:34 pm Additional Source Comments INFORMATION SOURCE (unrecogn ized section and content) DATE CREATED AUTHOR 03/16/2021 [facility] dical Specialist DATE CREATED AUTHOR AUTHOR'S ORGANIZ ATION 01/10/[address] [facility] ical Center DATE CREATED AUTHOR AUTHOR'S ORGANIZ ATION 04/28/2024 [facility] DATE CREATED AUTHOR AUTHOR'S ORGANIZ ATION 05/09/2024 [facility] dical Specialists EPIC DATE CREATED AUTHOR AUTHOR'S ORGANIZ ATION 05/12/2024 [facility] DATE CREATED AUTHOR AUTHOR'S ORGANIZ ATION 05/16/2024 [facility] DATE CREATED AUTHOR AUTHOR'S ORGANIZ ATION 05/17/2024 [facility] REASON FOR VISIT (unrecogniz ed section and content) Reason Onset Date Comments Med Refill 03/20/2023 Reason Comments Shoulder Injury Reason Comments Work Related Injury Pain Reason Comments Med Refill Reason Onset Date Comments Med Refill 04/07/2024 Reason Comments Gynecologic Exam Patient present for yearly. No issues with bowels or urinary. Patient states she found a lump on her Right breast, would like to see if Dr. Saucedo could locate the lump, as she was not able to feel it anymore. Patient states she had a mammogram and her PCP was concerned with the imaging. LMP: 04/13/24 Specialty Diagnoses / Procedures Referred By Citlali bateman Referred To Contact Obstetrics and Gynecology Diagnoses Pelvic and perineal pain Procedures SD UNLISTED EVALUATION AND MANAGEMENT SERVICE [facility] [address] [facility] [address] [place] [address] Phone: tel: fax: Omaira Saucedo MD [address] [facility] [address] [place] [address] Phone: tel: fax: Referral ID Status Reason Start Date Expiration Date Visits Re quested Visits Authorized [id number] Closed 04/04/2024 10/01/2024 1 1 Care Teams (unrecognized sec tion and content) Team Status: Active Member Role Status Dates Juana Benson DO Primary Care Provider Active Team Status: Inactive Member Role Status Dates Juana Benson DO Primary Care Provider Active Jorden Ramos MD Attending Provider Active Landscape Laborer Relationship Specialty Start Date End Date Tracy Lay, BUTTON MACHINE OPERATOR [address] [facility] [address] Zamudio [address] [place] [address] PCP - Medical Silva Commercial 07/06/22 Unallocated, Noms Provider [address] [place] [address] PCP - General Family Medicine 02/13/23 Landscape Laborer Relationship Specialty Start Date End Date Tracy Lay BUTTON MACHINE OPERATOR [address] [facility] [address] [address] PCP - Medical [facility] [employer] 07/06/22 Unallocated, Noms Provider [address] [place] [address] PCP - General Family Medicine 02/13/23 Landscape Laborer Relationship Specialty Start Date End Date Unallocated, Lydia Rdz MD [address] [place] [address] [place] [address] PCP - General Family Medicine 02/13/23 Aroldo Andino DO [address] [address] PCP - Medical [facility] [employer] 12/06/20 02/04/99 Landscape Laborer Relationship Specialty Start Date End Date Unallocated, Lydia Rdz MD [address] [place] [address] [place] [address] PCP - General Family Medicine 02/13/23 Aroldo Andino DO [address] [place] [address] [address] PCP - Medical Silva [employer] 12/06/20 02/04/99 Team Status: Inactive Member Role Status Dates Juana Benson DO Primary Care Provide r, Attending Provider Active Start: December 26, 2023 End: December 26, 2023 Team Status: Inactive Member Role Status Dates Juana Benson DO Attending Provider Active Start: December 26, 2023 End: December 26, 2023 Landscape Laborer Relationship Specialty Start Date End Date Unallocated, Lydia Rdz MD [address] [place] [address] PCP - General Family Medicine 02/13/23 Aroldo Andino DO [address] [place] [address] [address] PCP - Medical Silva [employer] 12/06/20 02/04/99 Landscape Laborer Relationship Specialty Start Date End Date Tracy Lay NP [address] [facility] [address] [place] [address] PCP - Medical Silva Commercial 12/06/20 02/04/99 Unallocated, Lydia Rdz MD [address] [place] [address] PCP - General Family Medicine 02/13/23 Landscape Laborer Relationship Specialty Start Date End Date Tracy Lay NP [address] [facility] [address] [place] [address] PCP - Medical Silva Commercial 12/06/20 02/04/99 Unallocated, Lydia Rdz MD [address] [place] [address] PCP - General Family Medicine 02/13/23 Landscape Laborer Relationship Specialty Start Date End Date Unallocated, Lydia Rdz MD [address] [place] [address] PCP - General Family Medicine 02/13/23 Aroldo Andino DO [address] [facility] [place] [address] PCP - Medical Silva Commercial 12/06/20 02/04/99 Team Status: Inactive Member Role Status Dates Juana Benson DO Primary Care Provide r, Attending Provider Active Start: March 04, 2024 End: March 04, 2024 Team Status: Active Member Role Status Dates Juana Benson DO Primary Care Provide r, Attending Provider Active Start: March 17, 2024 Team Status: Inactive Member Role Status Mauricio Benson , DO Primary Care Provide r, Attending Provider Active Start: March 21, 2024 End: March 21, 2024 Team Status: Active Member Role Status Dates Juana Benson , DO Primary Care Provide r, Attending Provider Active Start: March 31, 2024 Team Status: Inactive Member Role Status Dates Jauna Benson DO Primary Care Provide r, Attending Provider Active Start: April 03, 2024 End: April 03, 2024 Landscape Laborer Relationship Specialty Start Date End Date UnallocatedLydia Provider, [place] [address] PCP - General Family Medicine 02/13/23 Team Status: Inactive Member Role Status Mauricio Benson DO Primary Care Provide r, Attending Provider Active Start: April 07, 2024 End: April 07, 2024 Team Status: Inactive Member Role Status Mauricio Benson DO Primary Care Provide r, Attending Provider Active Start: March 31, 2024 End: March 31, 2024 Team Status: Inactive Member Role Status Mauricio Benson DO Primary Care Provide r, Attending Provider Active Start: April 08, 2024 End: April 08, 2024 Team Status: Inactive Member Role Status Mauricio Benson DO Primary Care Provide r, Attending Provider Active Start: April 29, 2024 End: April 29, 2024 Team Status: Inactive Member Role Status Mauricio Benson DO Primary Care Provider Active Sta rt: May 07, 2024 End: May 07, 2024 Shanta Mckeon PA-C Attending Provider Active Start: May 07, 2024 End: May 07, 2024 Landscape Laborer Relationship Specialty Start Date End Date Unallocated[place]ydia [place] [address] PCP - General Family Medicine 02/13/23 Goals (unrecognized section and content) Goals may be documented in a n alternate section FOR RECORDS PERTAINING TO PATIENTS WHO ARE OR HAVE BEEN ENROLLED IN A CHEMICAL DEPENDENCY/SUBSTANCEABUSE PROGRAM, SOME INFORMATION MAY BE OMITTED. This clinical summary was aggregated from multiple sources. Caution should be exercised in using it in the provision of clinical care. This summary normalizes information from multiple sources, and as a consequence, information in this document may materially change the coding, format and clinical context of patient data. In addition, data may be omitted in some cases. CLINICAL DECISIONS SHOULD BE BASED ON THE PRIMARY CLINICAL RECORDS. [facility]. provides no warranty or guarantee of the accuracy or completeness of information in this document.
--- NOTE | 2024-05-25 17:18 | ED_ITS ---
HPI HPI - Back Pain/Injury General Chief Complaint: Back Pain/Injury Stated Complaint: BACK PAIN, RECENT STENT PLACED KIDNEY STONE Time Seen by Provider: 05/25/24 17:12 History of Present Illness HPI Narrative: The patient is a 38-year-old female who just had a stent placed by urology service on the right side after she had a kidney stone with hydronephrosis, the patient had a procedure done on the which is almost 3 days ago, during which she was feeling better until this morning when she started having right- sided pain radiating to the right groin area, there is also associated nausea no vomiting The patient only taking Tylenol for pain No burning with urination Related Data Home Medications ?Medication ?Instructions ?Recorded ?Confirmed atogepant 60 mg tablet (Qulipta) 60 mg PO QPM 05/19/24 05/25/24 oxcarbazepine 600 mg tablet 600 mg PO QPM 05/19/24 05/25/24 topiramate 200 mg capsule 200 mg PO QPM 05/19/24 05/25/24 sprinkle,extended release 24 hr Previous Rx's ?Medication ?Instructions ?Recorded cephalexin 500 mg capsule 500 mg PO BID 7 days #14 caps 05/22/24 mirabegron 50 mg tablet,extended 50 mg PO DAILY #21 tabs 05/22/24 release 24 hr (Myrbetriq) Allergies Allergy/AdvReac Type Severity Reaction Status Date / Time No Known Drug Allergies Allergy Verified 05/19/24 13:54 Opioid HPI Opioid Management Most Recent Opioid Data: Last Pain Scale 8 05/25/24 17:29 05/25/24 Last Pain Assessment 05/22/24 12:45 Last MAR Pain Assessment 05/25/24 17:29 Review of Systems ROS Status of ROS 10 or more systems reviewed and unremark able except as noted in history and [facility] History (Updated 05/19/24 @ 13:59 by Rozina Montenegro NP) Seizures ?R56.9 - Unspecified convulsions (ICD-10) Migraine ?G43.909 - Migraine, unspecified, not intractable, without status migrainosus (ICD-10) Headache ?R51.9 - Headache, unspecified (ICD-10) Kidney stones ?N20.0 - Calculus of kidney (ICD-10) Surgical History (Updated 05/19/24 @ 13:58 by Rozina Montenegro NP) H/O eye surgery ?Z98.890 - Other specified postprocedural states (ICD-10) History of cholecystectomy ?Z90.49 - Acquired absence of other specified parts of digestive tract (ICD- 10) History of arthroscopy of knee ?Z98.890 - Other specified postprocedural states (ICD-10) Family History (Updated 05/19/24 @ 13:58 by Rozina Montenegro NP) Other Family history of diabetes mellitus Family history of hypertension Social History (Updated 05/19/24 @ 13:56 by Rozina Montenegro NP) Within the past year, how often did you have a drink containing alcohol: never Score interpretation: A score less than 3 is consistent with normal alcohol consumption. Smoking status: Never smoker Non-prescribed substance use: denies use Previous occupational history: Factory Highest level of school completed/degree received: high school graduate Little interest or pleasure in doing things: not at all Feeling down, depressed, or hopeless: not at all Exam Narrative Exam Narrative: Nurses notes and vital signs reviewed and patient is not hypoxic. General: Well-appearing and in no apparent distress. Skin: Warm, dry, no pallor noted. No rash. Head: Normocephalic, atraumatic. Neck: Supple, non-tender. Eye: Pupils are equal, round and EOMI. No scleral icterus. Cardiovascular: Regular Rate and Rhythm without murmur, gallop or rub. Respiratory: No accessory muscle use or respiratory distress. Back: No midline thoracic or lumbar vertebral tenderness. Right CVA tenderness Musculoskeletal: normal ROM, no calf or popliteal tenderness, no lower extremity edema/swelling GI: Abdomen is soft, non-distended. Normal bowel sounds. No masses appreciated. No tenderness to palpation. No rebound, guarding, or rigidity noted. Neurological: A&O x4. No cranial nerve dysfunction observed. No truncal ataxia. Constitutional Vital Signs, click to edit/add: Last Vital Signs Temp 97.5 F L 05/25/24 17:08 Pulse 88 05/25/24 17:08 Resp 18 05/25/24 17:08 BP 154/103 H 05/25/24 17:08 Pulse Ox 98 05/25/24 17:08 O2 Del Method Room Air 05/25/24 17:08 Course Vital Signs Vital signs: Vital Signs Temperature 97.5 F L 05/25/24 17:08 Pulse Rate 88 05/25/24 17:08 Respiratory Rate 18 05/25/24 17:08 Blood Pressure 154/103 H 05/25/24 17:08 Pulse Oximetry 98 05/25/24 17:08 Oxygen Delivery Method Room Air 05/25/24 17:08 Temperature 97.5 F L 05/25/24 17:08 Pulse Rate 88 05/25/24 17:08 Respiratory Rate 18 05/25/24 17:08 Blood Pressure 154/103 H 05/25/24 17:08 Pulse Oximetry 98 05/25/24 17:08 Oxygen Delivery Method Room Air 05/25/24 17:08 MDM - Back Pain/Injury Lab Data Labs: Lab Results 05/25/24 05/25/24 Range/Units 17:22 17:25 WBC 11.3 H (4.0-11.0) 10^3/uL RBC 4.22 (4.20-5.40) 10^6/uL Hgb 13.3 (12.0-16.0) g/dL Hct 40.4 (36.0-48.0) % MCV 95.7 (81.0-99.0) fL MCH 31.5 (26.7-34.0) pg MCHC 32.9 (29.9-35.2) g/dL RDW 12.8 (11.0-15.0) % Plt Count 236 (150-450) 10^3/uL MPV 8.3 L (9.5-13.5) fL Neut % (Auto) 77.5 H (43.0-75.0) % Lymph % (Auto) 16.3 L (20.5-60.0) % Wilcox % (Auto) 4.8 (1.7-12.0) % Eos % (Auto) 0.7 L (0.9-7.0) % Baso % (Auto) 0.3 (0.2-2.0) % Neut # (Auto) 8.8 H (1.4-6.5) 10^3/uL Lymph # (Auto) 1.8 (1.2-3.8) 10^3/uL Wilcox # (Auto) 0.5 (0.3-0.8) 10^3/uL Eos # (Auto) 0.1 (0.0-0.7) 10^3/uL Baso # (Auto) 0.0 (0.0-0.1) 10^3/uL Abs Immat Gran (auto) 0.04 H (0.00-0.03) 10^3/uL Imm/Tot Granulo (auto) 0.4 (0.0-0.5) % Sodium 142 (136-145) mmol/L Potassium 3.9 (3.5-5.1) mmol/L Chloride 107 (98-107) mmol/L Carbon Dioxide 27.7 (21.0-32.0) mmol/L Anion Gap 11.2 BUN 15.0 (7.0-18.0) mg/dL Creatinine 0.98 (0.55-1.02) mg/dL Est GFR ( Amer) >60 (>=60 mL/min/1.73m^2) Est GFR (Non-Af Amer) >60 (>=60 mL/min/1.73m^2) BUN/Creatinine Ratio 15.3 Glucose 130 H (74-106) mg/dL Calcium 9.4 (8.5-10.1) mg/dL Total Bilirubin 0.2 (0.2-1.0) mg/dL AST 7 L (15-37) U/L ALT 15 (14-59) U/L Alkaline Phosphatase 61 (46-116) U/L Total Protein 7.3 (6.4-8.2) g/dL Albumin 3.7 (3.4-5.0) g/dL Globulin 3.6 g/dL Albumin/Globulin Ratio 1.0 Serum HCG, Qual Negative (NEGATIVE) Urine Color Dk red A (YELLOW) Urine Clarity Sl cloudy (CLEAR) Urine pH 6.0 (5.0-9.0) Ur Specific [place] >=1.030 A (1.005-1.025) Urine Protein >=300 A (NEG/TRACE) mg/dL Urine Glucose (UA) Negative (NEGATIVE) mg/dL Urine Ketones Negative (NEGATIVE) mg/dL Urine Occult Blood Large A (NEGATIVE) Urine Nitrite Negative (NEGATIVE) Urine Bilirubin Small A (NEGATIVE) Urine Urobilinogen 0.2 (0.2-1.0) EU/dL Ur Leukocyte Esterase Trace A (NEGATIVE) Urine RBC 75-100 A (0-2) #/HPF Urine WBC 0-2 A (NONE SEEN) #/HPF Ur Squamous Epith Cells Rare (NONE/RARE) #/LPF Urine Crystals None seen (None Seen) #/HPF Urine Bacteria Small A (NONE SEEN) #/HPF Urine Casts None seen (NONE SEEN) #/LPF Urine Mucus None seen (NONE SEEN) Ur Culture Indicated? Yes-[facility] Discharge Plan Discharge Patient Disposition: Still a Patient
[2024-05-25 17:29] LABS: Basophils Percent Auto 0.3 % (0.2-2.0); Eosinophils Absolute Auto 0.1 10^3/uL (0.0-0.7); Eosinophils Percent Auto 0.7 % (0.9-7.0); Hematocrit 40.4 % (36.0-48.0); Hemoglobin 13.3 g/dL (12.0-16.0); Immature Granulocytes Abs Auto 0.04 10^3/uL (0.00-0.03); Immature Granulocytes Pct Auto 0.4 % (0.0-0.5); Lymphocytes Absolute Auto 1.8 10^3/uL (1.2-3.8); Lymphocytes Percent Auto 16.3 % (20.5-60.0); Mean Corpuscular HGB Conc 32.9 g/dL (29.9-35.2); Mean Corpuscular Hemoglobin 31.5 pg (26.7-34.0); Mean Corpuscular Volume 95.7 fL (81.0-99.0); Mean Platelet Volume 8.3 fL (9.5-13.5); Monocytes Absolute Auto 0.5 10^3/uL (0.3-0.8); Monocytes Percent Auto 4.8 % (1.7-12.0); Neutrophils Absolute Auto 8.8 10^3/uL (1.4-6.5); Neutrophils Percent Auto 77.5 % (43.0-75.0); Platelet Count 236 10^3/uL (150-450); Red Blood Count 4.22 10^6/uL (4.20-5.40); Red Cell Distribution Width 12.8 % (11.0-15.0); White Blood Count 11.3 10^3/uL (4.0-11.0)
[2024-05-25] MEDS: KETOROLAC TROMETHAMINE 30 MG/ML VIAL IVP (17:29)
[2024-05-25] MEDS: ONDANSETRON PF 4 MG/2 ML VIAL IV (17:29)
[2024-05-25 17:44] LABS: Bilirubin Urine SMALL (NEGATIVE); Blood Urine LARGE (NEGATIVE); Clarity Urine SL CLOUDY (CLEAR); Glucose Urine UA NEGATIVE (NEGATIVE); Ketones Urine NEGATIVE (NEGATIVE); Leukocyte Esterase Urine TRACE (NEGATIVE); Nitrite Urine NEGATIVE (NEGATIVE); Protein Urine >=300 mg/dL (NEG/TRACE); Specific Gravity Urine >=1.030 (1.005-1.025); Urobilinogen Urine 0.2 EU/dL (0.2-1.0)
[2024-05-25 17:46] LABS: Color Urine DK RED (YELLOW); Urine Microscopic Indicated YES
[2024-05-25 17:48] LABS: Alanine Aminotransferase 15 U/L (14-59); Albumin Level 3.7 g/dL (3.4-5.0); Alkaline Phosphatase 61 U/L (46-116); Anion Gap 11.2; Aspartate Amino Transferase 7 U/L (15-37); BUN Creatinine Ratio 15.3; Bilirubin Total 0.2 mg/dL (0.2-1.0); Calcium 9.4 mg/dL (8.5-10.1); Carbon Dioxide 27.7 mmol/L (21.0-32.0); Chloride 107 mmol/L (98-107); Estimated GFR (African America >60 (>=60 mL/min/1.73m^2); Estimated GFR (Non-African Ame >60 (>=60 mL/min/1.73m^2); Globulin 3.6 g/dL; Glucose 130 mg/dL (74-106); Potassium 3.9 mmol/L (3.5-5.1); Sodium 142 mmol/L (136-145); Total Protein 7.3 g/dL (6.4-8.2)
[2024-05-25 17:52] LABS: Bacteria Urine SMALL #/HPF (NONE SEEN); Cast Seen? NONE SEEN #/LPF (NONE SEEN); Crystals Seen? None Seen #/HPF (None Seen); Mucus Urine NONE SEEN (NONE SEEN); RBC Urine 75-100 #/HPF (0-2); Squamous Epithelial Cell Urine RARE #/LPF (NONE/RARE); Urine Culture Indicated YES-FRMC; WBC Urine 0-2 #/HPF (NONE SEEN)
[2024-05-25 18:12] LABS: HCG Qualitative NEGATIVE (NEGATIVE); Internal Control Within Normal Limits
[2024-05-25] MEDS: NAPROXEN 250 MG TABLET 500 MG PO (19:49)
[2024-05-25 19:51] VITALS: PULSE 88; O2SAT 99
== END 2024-05-25 19:55 | disposition home or self-care (01) ==
PROVIDERS: Emergency Provider Emergency Medicine; PCP Family Medicine
DX: K59.00 Constipation, unspecified (principal); G89.18 Other acute postprocedural pain; Z96.0 Presence of urogenital implants; Z87.442 Personal history of urinary calculi; Z90.49 Acquired absence of other specified parts of digestive tract
CPT/HCPCS: 36415; 74176; 80053; 81001; 84703; 85025; 87086; 96374; 96375; 99285; J1885; J2405